=== PATIENT | female | born 1960 | race African-American/Black ===

== ENCOUNTER 2021-01-08 18:37 | Inpatient (IN) | payer MEDICAID, SELFPAY ==
--- NOTE | ~2021-01-08 | CT_ITS ---
EXAM: NONCONTRAST CT OF THE CHEST; NONCONTRAST CT OF THE ABDOMEN AND PELVIS INDICATION: Abdominal pain, pneumonia versus cancer COMPARISON: Chest x-ray 01/08/2021 TECHNIQUE: No IV contrast was utilized. Multidetector helical imaging was performed through the chest, abdomen, and pelvis. Coronal and sagittal reformatted images were created at the technologist workstation. DOSE LOWERING TECHNIQUES: This CT examination was performed using dose optimization techniques as appropriate, variously including the following: - Automated exposure control - Adjustment of mA and/or kV according to patient size (this includes techniques or standardized protocols for targeted exams were dose is matched to indication/reason for exam; i.e. extremities or head) - Use of iterative reconstruction technique DLP: 381 mGy-cm FINDINGS: Chest: Semisolid material is present in the left lower lobe bronchus. Patchy areas of mild groundglass opacity are noted with upper lobe predominance. Mild emphysema is noted. There is a nodular focus measuring 5 mm in the right upper lobe anteriorly as seen on image 231/524. No pneumothorax or pleural effusion. The visualized thyroid gland is unremarkable. Small hiatal hernia is suspected. No lymphadenopathy is seen though assessment is limited without intravenous contrast. Cardiac size is within normal limits; no pericardial effusion. Coronary artery calcifications are present. No axillary lymphadenopathy is present. Abdomen/Pelvis: Limited evaluation without intravenous contrast. The liver is homogeneous in attenuation without intrahepatic biliary ductal dilatation. The gallbladder is grossly unremarkable. The unenhanced spleen adrenal appears unremarkable. There is extensive calcification throughout the pancreas. Questionable low-density left adrenal nodule with a density of an adenoma, versus small amount of free fluid. Excreted contrast noted in the bilateral pelvicalyceal systems of the kidneys. No hydronephrosis. Small right upper pole renal cyst is suspected. The urinary bladder is distended with excreted contrast material. The uterus and adnexa are grossly unremarkable. Small amount of pelvic free fluid suspected. Limited evaluation of the bowel due to lack of intravenous contrast and luminal collapse. The possibility of some segments of colonic wall thickening cannot be excluded in this setting. No evidence of bowel obstruction. Thin high density structure in the right lower quadrant is suggestive of the appendix. Scattered atherosclerotic calcifications are present. Significantly limited assessment for lymphadenopathy without intravenous contrast per No acute osseous findings. CT/CT abdomen pelvis wo con IMPRESSION: 1. Patchy areas of mild pulmonary groundglass opacity with upper lobe predominance, suggesting a mild infectious/inflammatory etiology. 2. Semisolid material in the left lower lobe bronchus, which could be secondary to aspiration. 3. Limited evaluation for masses or adenopathy in the abdomen/pelvis in the absence of contrast. Assessment of the colon is also limited due to luminal collapse, and segments of mild colonic wall thickening/colitis are difficult to entirely exclude. 4. Extensive calcifications throughout the pancreas consistent with chronic pancreatitis. 5. Small amount of intra-abdominal free fluid. 6. Right upper lobe 5 mm lung nodule is nonspecific and may be inflammatory. According to the UPDATED 2017 Fleischner Society recommendations, the advised follow-up imaging for solid nodules < 6 mm is: LOW RISK PATIENT: No routine follow-up. HIGH RISK PATIENT: Optional CT at 12 months.
--- NOTE | ~2021-01-08 | XR_ITS ---
EXAMINATION: PORTABLE CHEST 1 VIEW CLINICAL INFORMATION: lethargy . COMPARISON: No recent pertinent prior studies are available for comparison. TECHNIQUE: Portable frontal view of the chest was obtained. Patient is rotated slightly to the right. FINDINGS: The lungs are well expanded. No focal infiltrate, effusion, edema, or pneumothorax. Cardiac and mediastinal silhouettes are within normal limits for technique. No acute bony abnormality seen. XR/XR chest 1V IMPRESSION: No evidence of acute disease.
--- NOTE | ~2021-01-08 | CT_ITS ---
EXAMINATION: CT ANGIOGRAM HEAD CT ANGIOGRAM NECK CLINICAL INFORMATION: Potential infarct. Lethargy. COMPARISON: CT head from 01/08/2021. TECHNIQUE: Initial noncontrast flat finisher imaging of the head and neck was performed. Comparison is made with noncontrast head CT from earlier today. Test bolus sequences followed by intravenous administration 70 mL of Omnipaque 350. Helical imaging was performed in the axial plane from the aortic arch to the skull vertex. Delayed postcontrast imaging of the head was also performed. The data was processed at the cytometry technologist's workstation for generation of MIP sequences. Angled MIPs and volume rendered reformatted images were also generated at an offline 3D workstation. Stenoses are assessed in accordance with NASCET criteria unless otherwise indicated. This CT examination was performed using dose optimization techniques as appropriate, variously including the following: *Automated exposure control. *Adjustment of mA and/or kV according to patient size (this includes techniques or standardized protocols for targeted exams where dose is matched to indication/reason for exam; i.e. extremities or head). *Use of iterative reconstruction technique. DLP: 1412 mGy-cm FINDINGS: CT Head: There is no evidence of acute intracranial hemorrhage or edematous territorial infarction. A few foci of hypoattenuation in the periventricular and deep white matter are consistent with mild microangiopathy. Cavazos-white matter differentiation is preserved. The ventricles are normal in size and configuration. No evidence for obstructive hydrocephalus. No abnormal mass effect or midline shift. No extra-axial fluid collections. No pathologic intra-axial enhancement or regional oligemia. No acute soft tissue or osseous abnormalities. Moderate degenerative arthropathy of the temporomandibular joints. Mild mucosal thickening of the paranasal sinuses. The mastoid air cells and middle ear cavities are clear. Multifocal odontogenic enamel erosions and periapical lucencies. Right-sided lens extraction. CT Neck: There is wasting of the majority of the adipose tissue throughout the neck. No demonstrated focal lesion or collection within the soft tissues of the neck. The thyroid gland and remaining cervical soft tissues are within normal limits. No significant abnormalities of the cervical spine. CT Upper Chest: The esophagus is moderately distended and fluid-filled. Mild to moderate underlying centrilobular and paraseptal emphysema. Multifocal subcentimeter part solid and part groundglass nodules within the right upper lobe. Neck CTA: Aortic Arch: Normal contour and caliber. Classic 3 vessel branching pattern of the aortic arch. Great Vessel Origins: No significant stenosis of the branch origins. Right Common Carotid Artery: No focal stenosis or occlusion. Cervical Right Internal Carotid Artery: Mild calcific atherosclerotic disease of the carotid bulb and proximal internal carotid artery without flow-limiting stenosis. Left Common Carotid Artery: No focal stenosis or occlusion. Cervical Left Internal Carotid Artery: Mild calcific atherosclerotic disease of the carotid bulb and proximal internal carotid artery without flow-limiting stenosis. Cervical Right Vertebral Artery: The right-sided vertebral artery is threadlike from its origin. The V3 segment is near nonopacified. Cervical Left Vertebral Artery: Dominant. No focal stenosis or occlusion. Brain CTA: Intracranial Internal Carotid Arteries: Calcific atherosclerotic disease of the intracranial internal carotid arteries without occlusion or flow-limiting stenosis. No focal stenosis or occlusion. Right Anterior Cerebral Artery: The A1 segment is mildly diminutive. Normal opacification of the distal FAITH segments. Left Anterior Cerebral Artery: Normal A1 segment. Normal opacification of the distal FAITH segments. Anterior Communicating Artery: Normal. Right Middle Cerebral Artery: Normal M1 segment of the MCA without focal stenosis or occlusion. Normal arborization of the distal segments. Left Middle Cerebral Artery: Normal M1 segment of the MCA without focal stenosis or occlusion. Normal arborization of the distal segments. Right Vertebral Artery: The V4 segment is diminutive and potentially focally occluded within its mid section. There is opacification of a threadlike continuation of the V4 segment of the basilar artery. The posterior inferior cerebellar artery is not well opacified; however, there is no CT evidence of acute occlusion. Left Vertebral Artery: Normal V4 segment. Normal opacification of the proximal segments of the posterior inferior cerebellar artery. Basilar Artery: The basilar artery is mildly diminutive throughout its course without focal stenosis or occlusion. Normal appearance of the proximal superior cerebellar arteries. Right Posterior Cerebral Artery: The P1 segment is diminutive. origin of the POULTRY SERVICE TECHNICIAN with robust opacification of the posterior communicating artery. Normal opacification of the distal POULTRY SERVICE TECHNICIAN segments. Left Posterior Cerebral Artery: The P1 segment is diminutive. origin of the POULTRY SERVICE TECHNICIAN with robust opacification of the posterior communicating artery. Normal opacification of the distal POULTRY SERVICE TECHNICIAN segments. Normal opacification of the superior sagittal, straight, transverse, and sigmoid sinuses. CT/CT angio head neck stroke IMPRESSION: 1. No evidence of acute intracranial hemorrhage or edematous territorial infarction. No abnormal intracranial enhancement. 2. CTA of the head and neck without evidence of acute proximal occlusion or flow-limiting stenosis. 3. The right vertebral artery appears chronically diminutive with threadlike opacification. Dominant left-sided vertebral artery. The basilar artery is mildly diminutive with bilateral origins of the posterior cerebral arteries. 4. The esophagus is dilated and fluid-filled suggestive of distal obstruction (not included within the [id number] of this exam). If not previously workup, further evaluation of cause is recommended. 5. Underlying emphysema. Multifocal part solid and part groundglass nodules in the right upper lobe suggestive of an infectious/inflammatory process. This critical result was discussed with NAVIN Peck at 21:38 on 01/08/2021 and it was ascertained that the content and urgency of the report was understood at the time of direct communication.
--- NOTE | ~2021-01-08 | CT_ITS ---
CT head/brain wo con CLINICAL INFORMATION: Reason for Exam lethargy COMPARISON: No prior CT scan available for comparison. TECHNIQUE: Department standard protocol. This CT examination was performed using dose optimization techniques as appropriate, variously including the following: *Automated exposure control *Adjustment of mA and/or kV according to patient size (this includes techniques or standardized protocols for targeted exams where dose is matched to indication/reason for exam; i.e. extremities or head) *Use of iterative reconstruction technique DLP: 611 mGy-cm FINDINGS: CEREBRAL HEMISPHERES: There is subtle loss of normal overton-white matter differentiation in the left frontoparietal region raising concern for possible infarct. SUBDURAL SPACE: No bleed. BASAL GANGLIA AND PINEAL GLAND: Unremarkable VENTRICLES: Symmetric and normal in size. CEREBELLUM AND BRAINSTEM: No space-occupying mass, hemorrhage or acute infarct. CEREBELLOPONTINE ANGLES: No lesion found. ORBITS: No intraorbital mass. VESSELS: Unremarkable SKULL BASE: Unremarkable INCLUDED SINUSES AT SKULL BASE: Clear SKULL AND SKIN: No fracture or bone lesion found. CT/CT head/brain wo con IMPRESSION: Subtle hypodensity and loss of normal white matter differentiation left frontoparietal lobe raising concern for possible underlying developing infarct. Correlate with patient's symptoms, may consider correlation with MRI. No intracranial bleed. (Referring physician staff is being called, to be alerted of the above findings and recommendations.) EM
[2021-01-08 18:49] VITALS: BMI 12.1
[2021-01-08 18:57] VITALS: BP 159/104; PULSE 98; RESP 16; TEMP 36.9; O2SAT 98
--- NOTE | 2021-01-08 18:58 | ED.WEAKNESS ---
HPI - Weakness General Chief complaint: Weakness Stated complaint: lethargy Time Seen by Provider: 01/08/21 18:54 Source: patient Mode of arrival: ambulatory Limitations: no limitations History of Present Illness HPI Narrative: Patient presents to the ED for lethargic as per daughter. Daughter states patient woke up lethargic this morning. States she woke up with patient in the bed and patient did not want to eat. Order states she went out and came back and patient still was in the same position. But does admit the house was very hot. Daughter states yesterday patient was walking around the parking eating fine. States patient does not want to eat today. EMS states daughter informed him patient woke up lethargic Related Data Allergies Allergy/AdvReac Type Severity Reaction Status Date / Time No Known Allergies Allergy Verified 01/08/21 18:54 Review of Systems Review of Systems: Yes all other systems are reviewed and are negative Constitutional: Constitutional: Reports as per HPI and Reports no additional constitutional complaints Comments: Lethargic Eyes: Eyes: Reports as per HPI and Reports no additional eye complaints ENT: Reports system reviewed and no additional complaints, except as documented and Reports as per HPI Cardiovascular: Cardiovascular: Reports as per HPI and Reports no additional cardiovascular complaints Respiratory: Respiratory: Reports as per HPI and Reports no additional respiratory complaints Gastrointestinal: Gastrointestinal: Reports as per HPI and Reports no additional gastrointestinal complaints Genitourinary: Genitourinary: Reports no additional female genitourinary complaints and Reports as per HPI Musculoskeletal: Musculoskeletal: Reports no additional musculoskeletal complaints and Reports as per HPI Neurologic: Reports system reviewed and no additional complaints, except as documented and Reports as per HPI Psychiatric: Psychiatric: Reports no additional psychiatric complaints and Reports as per HPI [facility] Social History Social History Alcohol intake: never Patient Tobacco Use Status: Current everyday Tobacco user Use of substances other than those prescribed or required for medical reasons: No Advance Directives: No Advance Directives Information Provided: Yes Physical Exam Vital Signs: Vital Signs: Last Vital Signs Temp 98.4 F 01/08/21 22:00 Pulse 97 01/08/21 22:00 Resp 16 01/08/21 22:00 BP 156/105 H 01/08/21 22:00 Pulse Ox 98 01/08/21 22:00 Body Mass Index 12.1 Const: General: cooperative, healthy appearing, comfortable, no acute distress, well developed, alert, awake and Physically active; No lethargic Orientation/consciousness: patient oriented x3 and No lethargic HENMT: Head: Yes normal to inspection, Yes No palpable skull fracture present, Yes normocephalic, Yes atraumatic and No abrasion Eyes: Other: General: appearance normal, both eyes and all related structures Neck: Neck: Yes normal visual inspection, Yes full ROM, Yes no lymphadenopathy, Yes no meningeal signs, Yes trachea midline, Yes supple and No tender Chest: Chest palpation & inspection: normal inspection of the chest and normal palpation of entire chest wall Resp: Effort & Inspection: normal respiratory effort and able to speak in complete sentences Auscultation: clear to auscultation bilaterally Cardio: Jugular venous distension: no JVD Heart sounds: S1 normal heart sound present and S2 normal heart sound present GI: Inspection: Yes normal to inspection and No abdominal wall ecchymosis Palpation (GI): Soft to palpation, not firm, nontender, no guarding and not rigid : General: No CVA tenderness and Yes no CVA tenderness Back/Spine/Pelvis: Back: no CVA tenderness, No CVA tenderness and No back tenderness Skin: General skin exam: no rashes or lesions noted and elasticity normal Neuro: Other: Negative pronator drift. Negative slurred speech. Negative facial droop. All extremities equal strength and 5+. Negative neuro deficit General: patient oriented x3, no meningeal signs and CN's II-XI intact bilaterally Cranial nerves: Yes CN's II-XII intact bilaterally NIH Stroke Scale Internal: Other (Unknown last well) Level of Consciousness: Alert Level of Consciousness Questions: Answers both questions correctly Level of Consciousness Commands: Performs both tasks correctly Best Gaze: Normal Visual: No visual loss Facial Palsy: Normal Motor Arm (Right): No drift Motor Arm (Left): No drift Motor Leg (Right): No drift Motor Leg (Left): No drift Limb Ataxia: Absent Sensory: Normal Best Language: No aphasia Dysarthia: Normal Extinction and Inattention: No abnormality Score: 0 Course Course Course Narrative: Patient's symptoms may be due to heat exhaustion but will do a medical evaluation. With the patient have labs, head CT, EKG, troponin, and UA sent. Negative neuro deficit Reevaluation(s) Reevaluation #1: EKG negative STEMI. Troponin negative. UA normal. Electrolytes normal. Patient has slight white count elevation. Head CT shows questionable possible infarct. Will send patient for head CTA. Patient does not have any neuro deficits. Patient denied score of 0. I went to speak to the daughter she changed the story. Now states patient was normal in the morning talking and eating and then she states she left the patient at the house at 1 p.m. with her daughter. She left patient watching television. Came back at 16:00 some other in the same position and asked patient how come she did not eats and patient informed because she was lethargic. I saw patient at the ED at 19:00. Last known normal was 13:00. Mother told daughter she was weak at 16:00. Daughter states her own daughter states patient was in the same position since 13:00 and she thought patient was sleeping. Patient is outside the window. Patient is not a tPA candidate. Dr. Gaston evaluated patient and agree NIH Score is zero and got story from Daughter also. Time: 20:18 Reevaluation #2: Head CT does not show any neck or occlusion. Radiologist does not see stroke and head CT of neck and states initial read of possible stroke was not real. Presently no indication to call Neurology Dr. Gaston agreeable with plan. Will admit patient for CT a reading of possible esophagus obstruction. History physical exam does not indicate stroke. Time: 21:52 Reevaluation #3: I reviewed patient's chest CT and shows right upper lobe pneumonia. Will order lactic and start antibiotics. Accepted by Dr. Lynn hospitalist for admission. She evaluated patient and patient had some abdominal pain at that time so she recommend abdominal CT scan and chest CT to confirm pneumonia and possibility of malignancy in the lungs. Patient is not drooling and not in respiratory distress. Patient speaking in clear sentences and not having any nausea or vomiting. No indication for emergent gastroenterology evaluation. Hospitalists will contact Gastroenterology. Time: 23:55 MDM - Weakness MDM Narrative Medical decision making narrative: Lethargic. Pneumonia. Esophagus obstruction possible malignancy Lab Data Result diagrams: 01/08/21 19:35 01/08/21 19:35 Labs: Lab Results 01/08/21 01/08/21 01/08/21 Range/Units 19:35 19:35 19:35 WBC 13.4 H (4.8-10.8) X10*3/uL RBC 3.19 L (4.20-5.50) X10*6/uL Hgb 10.0 L (12.0-16.0) g/dl Hct 30.7 L (37-47) % MCV 96.2 (80-98) fL MCH 31.3 (27.0-33.0) pg MCHC 32.6 (31.0-35.0) g/dl RDW 13.2 (11.0-16.0) % Plt Count 385 (160-400) X10*3/uL MPV 9.2 L (9.4-12.3) fL Immature Gran % (Auto) 0.4 (0.0-0.4) % Neut % (Auto) 80.7 H (45-73) % Lymph % (Auto) 13.2 L (20-40) % Carter % (Auto) 4.3 (2-11) % Eos % (Auto) 1.0 (0-4) % Baso % (Auto) 0.4 (0-2) % Lymph # (Auto) 1.8 (1.2-4.9) X10*3/uL Carter # (Auto) 0.6 (0.1-1.2) X10*3/uL Eos # (Auto) 0.1 (0.0-0.4) X10*3/uL Baso # (Auto) 0.1 (0.0-0.2) X10*3/uL Abs Immat Gran (auto) 0.06 H (0.00-0.03) X10*3/uL Absolute Neuts (auto) 10.8 H (2.0-8.3) X10*3/uL Absolute Nucleated RBC 0.000 (0.0-0.012) X10*3/uL Nucleated RBC % (auto) 0.0 (0.0-0.2) /100WBC PT 13.2 H (10.8-13.0) SEC INR 1.1 (0.9-1.1) APTT 31.3 (24.1-38.0) SEC Sodium 138 (135-145) mmol/L Potassium 4.3 (3.3-5.1) mmol/L Chloride 102 (96-108) mmol/L Carbon Dioxide 28 (22-29) mmol/L Anion Gap 12 (12-20) BUN 26 H (9-16) mg/dL Creatinine 0.65 (0.5-1.4) mg/dL Estim Creat Clear Calc 47.6 Estimated GFR > 60 Random Glucose 179 H (60-115) mg/dL Lactic Acid (0.5-2.0) mmol/L Calcium 8.3 L (8.4-10.2) mg/dL Total Bilirubin 0.4 (0.0-1.0) mg/dL Direct Bilirubin (0.0-0.5) mg/dL AST 28 (5-31) U/L ALT 24 (0-31) U/L Alkaline Phosphatase 314 H (39-117) U/L Total Creatine Kinase (26-140) U/L Troponin I High Sens (<3.5-17.0) ng/L Total Protein 6.3 L (6.5-8.0) g/dL Albumin 2.8 L (3.5-5.0) g/dL Urine Color Urine Appearance Urine pH (5.0-8.0) Ur Specific [place] (1.005-1.025) Urine Protein (NEG-TRACE) MG/DL Urine Glucose (UA) (NEG) MG/DL Urine Ketones (NEG) MG/DL Urine Blood (NEG) Urine Nitrite (NEG) Ur Leukocyte Esterase (NEG) Urine RBC (0) /HPF Urine WBC (0-4) /HPF Ur Squamous Epith Cells /LPF Urine Bacteria /LPF COVID-19 (STEPHANI) (Negative) COVID-19 Clin Com 01/08/21 01/08/21 01/08/21 Range/Units 19:35 19:35 19:35 WBC (4.8-10.8) X10*3/uL RBC (4.20-5.50) X10*6/uL Hgb (12.0-16.0) g/dl Hct (37-47) % MCV (80-98) fL MCH (27.0-33.0) pg MCHC (31.0-35.0) g/dl RDW (11.0-16.0) % Plt Count (160-400) X10*3/uL MPV (9.4-12.3) fL Immature Gran % (Auto) (0.0-0.4) % Neut % (Auto) (45-73) % Lymph % (Auto) (20-40) % Carter % (Auto) (2-11) % Eos % (Auto) (0-4) % Baso % (Auto) (0-2) % Lymph # (Auto) (1.2-4.9) X10*3/uL Carter # (Auto) (0.1-1.2) X10*3/uL Eos # (Auto) (0.0-0.4) X10*3/uL Baso # (Auto) (0.0-0.2) X10*3/uL Abs Immat Gran (auto) (0.00-0.03) X10*3/uL Absolute Neuts (auto) (2.0-8.3) X10*3/uL Absolute Nucleated RBC (0.0-0.012) X10*3/uL Nucleated RBC % (auto) (0.0-0.2) /100WBC PT (10.8-13.0) SEC INR (0.9-1.1) APTT (24.1-38.0) SEC Sodium (135-145) mmol/L Potassium (3.3-5.1) mmol/L Chloride (96-108) mmol/L Carbon Dioxide (22-29) mmol/L Anion Gap (12-20) BUN (9-16) mg/dL Creatinine (0.5-1.4) mg/dL Estim Creat Clear Calc Estimated GFR Random Glucose (60-115) mg/dL Lactic Acid (0.5-2.0) mmol/L Calcium (8.4-10.2) mg/dL Total Bilirubin 0.5 (0.0-1.0) mg/dL Direct Bilirubin < 0.2 (0.0-0.5) mg/dL AST 29 (5-31) U/L ALT 25 (0-31) U/L Alkaline Phosphatase 323 H (39-117) U/L Total Creatine Kinase 78 (26-140) U/L Troponin I High Sens < 3.5 (<3.5-17.0) ng/L Total Protein 6.3 L (6.5-8.0) g/dL Albumin 2.9 L (3.5-5.0) g/dL Urine Color Urine Appearance Urine pH (5.0-8.0) Ur Specific [place] (1.005-1.025) Urine Protein (NEG-TRACE) MG/DL Urine Glucose (UA) (NEG) MG/DL Urine Ketones (NEG) MG/DL Urine Blood (NEG) Urine Nitrite (NEG) Ur Leukocyte Esterase (NEG) Urine RBC (0) /HPF Urine WBC (0-4) /HPF Ur Squamous Epith Cells /LPF Urine Bacteria /LPF COVID-19 (STEPHANI) Negative (Negative) COVID-19 Clin Com See Note 01/08/21 01/08/21 Range/Units 20:25 23:45 WBC (4.8-10.8) X10*3/uL RBC (4.20-5.50) X10*6/uL Hgb (12.0-16.0) g/dl Hct (37-47) % MCV (80-98) fL MCH (27.0-33.0) pg MCHC (31.0-35.0) g/dl RDW (11.0-16.0) % Plt Count (160-400) X10*3/uL MPV (9.4-12.3) fL Immature Gran % (Auto) (0.0-0.4) % Neut % (Auto) (45-73) % Lymph % (Auto) (20-40) % Carter % (Auto) (2-11) % Eos % (Auto) (0-4) % Baso % (Auto) (0-2) % Lymph # (Auto) (1.2-4.9) X10*3/uL Carter # (Auto) (0.1-1.2) X10*3/uL Eos # (Auto) (0.0-0.4) X10*3/uL Baso # (Auto) (0.0-0.2) X10*3/uL Abs Immat Gran (auto) (0.00-0.03) X10*3/uL Absolute Neuts (auto) (2.0-8.3) X10*3/uL Absolute Nucleated RBC (0.0-0.012) X10*3/uL Nucleated RBC % (auto) (0.0-0.2) /100WBC PT (10.8-13.0) SEC INR (0.9-1.1) APTT (24.1-38.0) SEC Sodium (135-145) mmol/L Potassium (3.3-5.1) mmol/L Chloride (96-108) mmol/L Carbon Dioxide (22-29) mmol/L Anion Gap (12-20) BUN (9-16) mg/dL Creatinine (0.5-1.4) mg/dL Estim Creat Clear Calc Estimated GFR Random Glucose (60-115) mg/dL Lactic Acid 0.5 (0.5-2.0) mmol/L Calcium (8.4-10.2) mg/dL Total Bilirubin (0.0-1.0) mg/dL Direct Bilirubin (0.0-0.5) mg/dL AST (5-31) U/L ALT (0-31) U/L Alkaline Phosphatase (39-117) U/L Total Creatine Kinase (26-140) U/L Troponin I High Sens (<3.5-17.0) ng/L Total Protein (6.5-8.0) g/dL Albumin (3.5-5.0) g/dL Urine Color YELLOW Urine Appearance CLEAR Urine pH 5.5 (5.0-8.0) Ur Specific [place] 1.015 (1.005-1.025) Urine Protein NEG (NEG-TRACE) MG/DL Urine Glucose (UA) >=1000 H (NEG) MG/DL Urine Ketones NEG (NEG) MG/DL Urine Blood NEG (NEG) Urine Nitrite NEG (NEG) Ur Leukocyte Esterase NEG (NEG) Urine RBC 0 (0) /HPF Urine WBC 0-2 (0-4) /HPF Ur Squamous Epith Cells 1+ /LPF Urine Bacteria NONE /LPF COVID-19 (STEPHANI) (Negative) COVID-19 Clin Com ECG Data Interpretation: Normal sinus rhythm. Ventricular rate 92. VA interval 136. QRS 70. QTC 452. Negative STEMI Discharge Plan Discharge Clinical Impression: Lethargic, Pneumonia, Esophageal obstruction Patient Disposition: Admitted As Inpatient
[2021-01-08] MEDS: 0.9 % Sodium Chloride 1,000 ML 999 ML IV (19:09)
--- NOTE | 2021-01-08 19:36 | ECG_ITS ---
Test Reason : WEAKNESS Blood Pressure : / mmHG Vent. Rate : 092 BPM Atrial Rate : 092 BPM P-R Int : 136 ms QRS Dur : 070 ms QT Int : 366 ms P-R-T Axes : 087 080 088 degrees QTc Int : 452 ms Normal sinus rhythm Septal infarct , age undetermined Abnormal ECG No previous ECGs available Referred By: Braydon Arenas Electronically Signed By:Andrews Ace
[2021-01-08 19:40] LABS: MANUAL DIFF FLAG NO
[2021-01-08 19:42] LABS: Basophils Absolute Auto 0.1 X10*3/uL (0.0-0.2); Basophils Percent Auto 0.4 % (0-2); Eosinophils Absolute Auto 0.1 X10*3/uL (0.0-0.4); Hematocrit 30.7 % (37-47); Imm Gran Abs Auto 0.06 X10*3/uL (0.00-0.03); Imm Gran Pct Auto 0.4 % (0.0-0.4); Lymphocytes Absolute Auto 1.8 X10*3/uL (1.2-4.9); Lymphocytes Percent Auto 13.2 % (20-40); Mean Corpuscular HGB Conc 32.6 g/dl (31.0-35.0); Mean Corpuscular Hemoglobin 31.3 pg (27.0-33.0); Mean Corpuscular Volume 96.2 fL (80-98); Mean Platelet Volume 9.2 fL (9.4-12.3); Monocytes Absolute Auto 0.6 X10*3/uL (0.1-1.2); Monocytes Percent Auto 4.3 % (2-11); Neutrophils Absolute Auto 10.8 X10*3/uL (2.0-8.3); Neutrophils Percent Auto 80.7 % (45-73); Platelet Count 385 X10*3/uL (160-400); Red Blood Count 3.19 X10*6/uL (4.20-5.50); Red Cell Distribution Width 13.2 % (11.0-16.0); White Blood Count 13.4 X10*3/uL (4.8-10.8)
[2021-01-08 19:48] LABS: INTERNATIONAL NORM RATIO 1.1 (0.9-1.1); Prothrombin Time 13.2 SEC (10.8-13.0)
[2021-01-08 19:51] LABS: Partial Thromboplastin Time 31.3 SEC (24.1-38.0)
[2021-01-08 20:00] LABS: COVID-19 Test Negative (Negative); IDNOW Serial# 9DD0AD1C
[2021-01-08 20:16] LABS: Alanine Aminotransferase 24 U/L (0-31); Albumin Level 2.8 g/dL (3.5-5.0); Alkaline Phosphatase 314 U/L (39-117); Anion Gap 12 (12-20); Aspartate Amino Transferase 28 U/L (5-31); Bilirubin Total 0.4 mg/dL (0.0-1.0); Blood Urea Nitrogen 26 mg/dL (9-16); Calcium 8.3 mg/dL (8.4-10.2); Carbon Dioxide 28 mmol/L (22-29); Chloride 102 mmol/L (96-108); Creatinine Clr Calc Pharmacy 47.6; Estimated Glomerular Filt Rate > 60; Glucose Random 179 mg/dL (60-115); Potassium 4.3 mmol/L (3.3-5.1); Sodium 138 mmol/L (135-145); Total Protein 6.3 g/dL (6.5-8.0)
[2021-01-08 20:17] LABS: Alanine Aminotransferase 25 U/L (0-31); Albumin Level 2.9 g/dL (3.5-5.0); Alkaline Phosphatase 323 U/L (39-117); Aspartate Amino Transferase 29 U/L (5-31); Bilirubin Direct < 0.2 mg/dL (0.0-0.5); Bilirubin Total 0.5 mg/dL (0.0-1.0); Total Protein 6.3 g/dL (6.5-8.0)
[2021-01-08 20:23] LABS: Troponin-I High Sensitivity < 3.5 ng/L (<3.5-17.0)
[2021-01-08 20:37] VITALS: BP 149/102; PULSE 92; RESP 16; TEMP 36.9; O2SAT 95
[2021-01-08 20:40] LABS: Glucose Urine UA >=1000 MG/DL (NEG); Leukocyte Esterase Urine NEG (NEG); Nitrite Urine NEG (NEG); PH 5.5 (5.0-8.0); Specific Gravity - Urine 1.015 (1.005-1.025); Urine Blood NEG (NEG); Urine Ketones NEG (NEG); Urine Protein NEG (NEG-TRACE)
--- NOTE | 2021-01-08 20:40 | PC.NURSE ---
PATIENT WAS STRAIGHT CATH BY THIS PCT ,UPON CHANGING PATIENT NOTICE A DRESSING ON PATIENT COCCYX AND THEN ANOTHER LARGE OPEN AREA ON LEFT BUTTOCK ,RN EMILIANA WAS CALLED TO CHECK WOUNDS ,PATIENT HAD LARGE AMOUNT OF DRY STOOL UNDER DRESSING .
[2021-01-08 20:41] LABS: Appearance Urine CLEAR; Color Urine YELLOW
[2021-01-08 20:54] LABS: WBC Urine 0-2 /HPF (0-4)
[2021-01-08 20:55] LABS: RBC Urine 0 /HPF (0); Squamous Epithelial Cell Urine 1+ /LPF
[2021-01-08] MEDS: iohexoL 350 MG/ML 100 ML INFUS..BTL IV (21:32)
[2021-01-08 22:00] VITALS: BP 156/105; PULSE 97; RESP 16; TEMP 36.9; O2SAT 98
[2021-01-08] MEDS: cefTRIAXone sodium 1 GM in 0.9 % Sodium Chloride 50 ML IV (23:54)
[2021-01-08] MEDS: Azithromycin 500 MG in 0.9 % Sodium Chloride 250 ML 125 MG IV (23:55)
[2021-01-09] VITALS (7 sets, daily range): BP systolic 137–177; BP diastolic 82–105; PULSE 91–103; RESP 11–16; TEMP 36.3–36.9; O2SAT 97–100
[2021-01-09 00:12] LABS: Lactic Acid 0.5 mmol/L (0.5-2.0)
[2021-01-09] MEDS: ondansetron HCL 4 MG/2 ML VIAL IVPUSH (03:50)
--- NOTE | 2021-01-09 03:59 | PC.NURSE ---
This RN assumed care of pt at ~0300, entered room and was assessing pt. Pt's daughter at bedside states pt c/o back and abd pain. This RN discussing home medications with pt and family, neither able to provide information regarding daily meds. This RN with plan to further investigate home med regimen. Pt begins vomiting dark red coffee ground emesis. Pt placed on investment broker, in NSS, VSS. This RN TT Dr Vance to inform her; Dr Spangler made aware and comes to bedside. Dr Spangler verbal orders guaiac, this RN obtains sample and will send to lab for processing. Dr Spangler with initial plan to insert NG tube; this RN informs Dr Vance. Dr Spangler decides against NG tube placement after reviewing the CT scan. Dr Vance updated, agreeable. Pt medicated with antiemetics, type and screen obtained by phlebotomy. This RN to hold SQ heparin d/t likely vomiting blood. Dr Vance made aware.
[2021-01-09 04:42] LABS: Glucose, Whole Blood 221 mg/dL (60-115)
--- NOTE | 2021-01-09 05:27 | PC.NURSE ---
This RN sent gastric occult blood sample on occult stool card in error; lab unable to determine if gastric contents are heme positive off of sample. This RN notifited Dr Vance. Plan for RN to obtain gastric content sample if pt vomits again to send for processing. Additionally, pt was c/o abd pain, this RN requested pain control from Dr Vance and PRN morphine ordered. Pt no longer reporting pain at this time. Dr Vance made aware that med rec has been completed by this RN.
--- NOTE | 2021-01-09 05:56 | PM.IMHP ---
History of Present Illness Date of Service: 01/09/21 Chief Complaint: lethargy With history of diabetes, as well as hypertension who is a Frisian-speaking brought into the hospital complaining of lethargy. History is mostly obtained from daughter at her bedside. Patient's daughter reports that she recently brought her from [place] after she was concerned about her health, losing weight, and not doing 12. Patient's daughter reports that she was recently hospitalized in [place] for a whole week but she is not sure why. He daughter reports that she woke up this morning with her mom being at her baseline, she left around noon, when she came back in the afternoon found her to be more tired, weak, and lethargic, checked her sugar which was high called EMS and asked him to bring her to the hospital. When I ask the patient about any symptoms she reports abdominal pain all over that started 2 days ago, she denies any diarrhea or constipation, denies any nausea or vomiting, no chest pain no shortness of breath, no urinary symptoms. On arrival to the ED patient's vitals are significant for temperature of 98.5?, heart rate of 98, respiratory rate of 16, blood pressure of 159/104, satting 98% on room air Labs are significant for WBC count of 13.4, hemoglobin of 10, BUN of 26, creatinine 0.65, alk-phos of 323, albumin of 2.9, UA negative except for glucose, COVID-19 negative. Initial head and neck CT angiogram showed no evidence of acute intracranial hemorrhage or edematous territory infarction. No abnormal intracranial enhancement. CTA of the head and neck without evidence of acute proximal occlusion or flow-limiting stenosis. The right vertebral artery appears chronically diminutive with thread-like opacification, the esophagus is dilated and fluid-filled suggestive of distal obstruction, underlying emphysema, multifocal part salt and part ground-glass nodules in the right upper lobe suggestive of infectious inflammatory process While in the ED patient had hematemesis of coffee-ground emesis. Review of Systems Review of Systems: Yes all other systems are reviewed and are negative [facility] Medical History Diabetes Hypertension Social History Alcohol intake: never Patient Tobacco Use Status: Current everyday Tobacco user Use of substances other than those prescribed or required for medical reasons: No Advance Directives: No Advance Directives Information Provided: Yes Meds Allergies Allergy/AdvReac Type Severity Reaction Status Date / Time No Known Allergies Allergy Verified 01/08/21 18:54 Active Medications: Current Medications Generic Name Dose Route Start Last Admin Trade Name Freq PRN Reason Stop Dose Admin Acetaminophen 650 mg 01/09/21 03:49 Acetaminophen 325 Mg Tablet PO Q6H PRN Pain, Mild (Pain Scale 1-3) Docusate Sodium 100 mg 01/09/21 03:49 Docusate Sodium 100 Mg Capsule PO DAILY PRN Constipation Ceftriaxone Sodium 1 gm/ 50 mls @ 100 mls/hr 01/09/21 22:00 Sodium Chloride IV Q24H PARTH Azithromycin 500 mg/ Sodium 250 mls @ 125 mls/hr 01/09/21 22:00 Chloride IV Q24H PARTH Morphine Sulfate 4 mg 01/09/21 05:00 Morphine Sulfate 4 Mg/Ml Cartridge IVPUSH Q4H PRN Pain, Severe (Pain Scale 7-10) Ondansetron HCl 4 mg 01/09/21 03:49 Ondansetron Hcl 4 Mg/2 Ml Vial IVPUSH Q8H PRN Nausea and Vomiting Sodium Chloride 3 ml 01/09/21 08:00 0.9 % Sodium Chloride Flush 3 Ml Syringe IVFLUSH [facility] Home Medications Medication Instructions Recorded Confirmed Last Taken Type alendronate 70 mg PO QWEEK 01/09/21 01/09/21 Unknown History ascorbic acid (vitamin C) 500 mg PO DAILY 01/09/21 01/09/21 Unknown History cholecalciferol (vitamin D3) 25 mcg PO DAILY 01/09/21 01/09/21 Unknown History diclofenac sodium [Voltaren 2 g TOPICAL TID PRN 01/09/21 01/09/21 Unknown History Arthritis Pain] ferrous sulfate 325 mg PO Q OTHER DAY 01/09/21 01/09/21 Unknown History gabapentin 600 mg PO TID 01/09/21 01/09/21 Unknown History insulin degludec 5 unit SUBCUT BEDTIME 01/09/21 01/09/21 Unknown History insulin lispro [Humalog KwikPen 2 unit SUBCUT TID 01/09/21 01/09/21 Unknown History Insulin] utdfpc-wwephejv-oyicanm 3 cap PO TID 01/09/21 01/09/21 Unknown History [Pancrelipase 5000] lisinopril 5 mg PO DAILY 01/09/21 01/09/21 Unknown History pyridoxine (vitamin B6) 50 mg PO DAILY 01/09/21 01/09/21 Unknown History thiamine HCl (vitamin B1) 100 mg PO DAILY 01/09/21 01/09/21 Unknown History Physical Exam Vital Signs and Narrative: Vital Signs: Last Vital Signs Temp 97.3 F 01/09/21 04:18 Pulse 91 01/09/21 04:18 Resp 11 L 01/09/21 04:18 BP 177/97 H 01/09/21 04:18 Pulse Ox 100 01/09/21 04:18 Body Mass Index 12.1 Const: General: cooperative, ill appearing, lethargic and tired appearing Orientation/consciousness: lethargic Eyes: General: appearance normal, both eyes and all related structures Resp: Effort & Inspection: normal respiratory effort and able to speak in complete sentences Cardio: Rate: regular rate Rhythm: regular rhythm GI: Other: Tender to palpation, no rebound but has guarding Palpation (GI): Soft to palpation Skin: General skin exam: no rashes or lesions noted Neuro: Cognition (Neuro): normal cognition Extrem: General: Yes normal to inspection and Yes no pedal edema Results Labs CBC and Chem 7: 01/08/21 19:35 01/08/21 19:35 Labs: Laboratory Results - last 24 hr 01/08/21 01/08/21 01/08/21 19:35 19:35 19:35 MCV 96.2 MCH 31.3 MCHC 32.6 RDW 13.2 Plt Count 385 MPV 9.2 L Immature Gran % (Auto) 0.4 Neut % (Auto) 80.7 H Lymph % (Auto) 13.2 L [place] % (Auto) 4.3 Eos % (Auto) 1.0 Baso % (Auto) 0.4 Lymph # (Auto) 1.8 [place] # (Auto) 0.6 Eos # (Auto) 0.1 Baso # (Auto) 0.1 Abs Immat Gran (auto) 0.06 H Absolute Neuts (auto) 10.8 H Absolute Nucleated RBC 0.000 Nucleated RBC % (auto) 0.0 PT 13.2 H INR 1.1 APTT 31.3 Anion Gap 12 Estim Creat Clear Calc 47.6 Estimated GFR > 60 POC Glucose Random Glucose 179 H Lactic Acid Calcium 8.3 L Total Bilirubin 0.4 Direct Bilirubin AST 28 ALT 24 Alkaline Phosphatase 314 H Total Creatine Kinase Troponin I High Sens Total Protein 6.3 L Albumin 2.8 L Urine Color Urine Appearance Urine pH Ur Specific [place] Urine Protein Urine Glucose (UA) Urine Ketones Urine Blood Urine Nitrite Ur Leukocyte Esterase Urine RBC Urine WBC Ur Squamous Epith Cells Urine Bacteria COVID-19 (STEPHANI) COVID-19 Clin Com Blood Type Antibody Screen 01/08/21 01/08/21 01/08/21 19:35 19:35 19:35 MCV MCH MCHC RDW Plt Count MPV Immature Gran % (Auto) Neut % (Auto) Lymph % (Auto) [place] % (Auto) Eos % (Auto) Baso % (Auto) Lymph # (Auto) [place] # (Auto) Eos # (Auto) Baso # (Auto) Abs Immat Gran (auto) Absolute Neuts (auto) Absolute Nucleated RBC Nucleated RBC % (auto) PT INR APTT Anion Gap Estim Creat Clear Calc Estimated GFR POC Glucose Random Glucose Lactic Acid Calcium Total Bilirubin 0.5 Direct Bilirubin < 0.2 AST 29 ALT 25 Alkaline Phosphatase 323 H Total Creatine Kinase 78 Troponin I High Sens < 3.5 Total Protein 6.3 L Albumin 2.9 L Urine Color Urine Appearance Urine pH Ur Specific [place] Urine Protein Urine Glucose (UA) Urine Ketones Urine Blood Urine Nitrite Ur Leukocyte Esterase Urine RBC Urine WBC Ur Squamous Epith Cells Urine Bacteria COVID-19 (STEPHANI) Negative COVID-19 Clin Com See Note Blood Type Antibody Screen 01/08/21 01/08/21 01/09/21 20:25 23:45 03:58 MCV MCH MCHC RDW Plt Count MPV Immature Gran % (Auto) Neut % (Auto) Lymph % (Auto) [place] % (Auto) Eos % (Auto) Baso % (Auto) Lymph # (Auto) [place] # (Auto) Eos # (Auto) Baso # (Auto) Abs Immat Gran (auto) Absolute Neuts (auto) Absolute Nucleated RBC Nucleated RBC % (auto) PT INR APTT Anion Gap Estim Creat Clear Calc Estimated GFR POC Glucose Random Glucose Lactic Acid 0.5 Calcium Total Bilirubin Direct Bilirubin AST ALT Alkaline Phosphatase Total Creatine Kinase Troponin I High Sens Total Protein Albumin Urine Color YELLOW Urine Appearance CLEAR Urine pH 5.5 Ur Specific [place] 1.015 Urine Protein NEG Urine Glucose (UA) >=1000 H Urine Ketones NEG Urine Blood NEG Urine Nitrite NEG Ur Leukocyte Esterase NEG Urine RBC 0 Urine WBC 0-2 Ur Squamous Epith Cells 1+ Urine Bacteria NONE COVID-19 (STEPHANI) COVID-19 Clin Com Blood Type B Positive Antibody Screen NEGATIVE 01/09/21 04:37 MCV MCH MCHC RDW Plt Count MPV Immature Gran % (Auto) Neut % (Auto) Lymph % (Auto) [place] % (Auto) Eos % (Auto) Baso % (Auto) Lymph # (Auto) [place] # (Auto) Eos # (Auto) Baso # (Auto) Abs Immat Gran (auto) Absolute Neuts (auto) Absolute Nucleated RBC Nucleated RBC % (auto) PT INR APTT Anion Gap Estim Creat Clear Calc Estimated GFR POC Glucose 221 H Random Glucose Lactic Acid Calcium Total Bilirubin Direct Bilirubin AST ALT Alkaline Phosphatase Total Creatine Kinase Troponin I High Sens Total Protein Albumin Urine Color Urine Appearance Urine pH Ur Specific [place] Urine Protein Urine Glucose (UA) Urine Ketones Urine Blood Urine Nitrite Ur Leukocyte Esterase Urine RBC Urine WBC Ur Squamous Epith Cells Urine Bacteria COVID-19 (STEPHANI) COVID-19 Clin Com Blood Type Antibody Screen Imaging Radiologist's Impressions: Impressions Chest X-Ray 01/08/21 18:54 IMPRESSION: No evidence of acute disease. Head CT 01/08/21 18:54 IMPRESSION: Subtle hypodensity and loss of normal white matter differentiation left frontoparietal lobe raising concern for possible underlying developing infarct. Correlate with patient's symptoms, may consider correlation with MRI. No intracranial bleed. (Referring physician staff is being called, to be alerted of the above findings and recommendations.) EM Head/Neck CTA 01/08/21 20:51 IMPRESSION: 1. No evidence of acute intracranial hemorrhage or edematous territorial infarction. No abnormal intracranial enhancement. 2. CTA of the head and neck without evidence of acute proximal occlusion or flow-limiting stenosis. 3. The right vertebral artery appears chronically diminutive with threadlike opacification. Dominant left-sided vertebral artery. The basilar artery is mildly diminutive with bilateral origins of the posterior cerebral arteries. 4. The esophagus is dilated and fluid-filled suggestive of distal obstruction (not included within the [id number] of this exam). If not previously workup, further evaluation of cause is recommended. 5. Underlying emphysema. Multifocal part solid and part groundglass nodules in the right upper lobe suggestive of an infectious/inflammatory process. This critical result was discussed with NAVIN Peck at 21:38 on 01/08/2021 and it was ascertained that the content and urgency of the report was understood at the time of direct communication. Chest CT 01/09/21 00:37 IMPRESSION: 1. Patchy areas of mild pulmonary groundglass opacity with upper lobe predominance, suggesting a mild infectious/inflammatory etiology. 2. Semisolid material in the left lower lobe bronchus, which could be secondary to aspiration. 3. Limited evaluation for masses or adenopathy in the abdomen/pelvis in the absence of contrast. Assessment of the colon is also limited due to luminal collapse, and segments of mild colonic wall thickening/colitis are difficult to entirely exclude. 4. Extensive calcifications throughout the pancreas consistent with chronic pancreatitis. 5. Small amount of intra-abdominal free fluid. 6. Right upper lobe 5 mm lung nodule is nonspecific and may be inflammatory. According to the UPDATED 2017 Fleischner Society recommendations, the advised follow-up imaging for solid nodules < 6 mm is: LOW RISK PATIENT: No routine follow-up. HIGH RISK PATIENT: Optional CT at 12 months. Abdomen/Pelvis CT 01/09/21 00:56 IMPRESSION: 1. Patchy areas of mild pulmonary groundglass opacity with upper lobe predominance, suggesting a mild infectious/inflammatory etiology. 2. Semisolid material in the left lower lobe bronchus, which could be secondary to aspiration. 3. Limited evaluation for masses or adenopathy in the abdomen/pelvis in the absence of contrast. Assessment of the colon is also limited due to luminal collapse, and segments of mild colonic wall thickening/colitis are difficult to entirely exclude. 4. Extensive calcifications throughout the pancreas consistent with chronic pancreatitis. 5. Small amount of intra-abdominal free fluid. 6. Right upper lobe 5 mm lung nodule is nonspecific and may be inflammatory. According to the UPDATED 2017 Fleischner Society recommendations, the advised follow-up imaging for solid nodules < 6 mm is: LOW RISK PATIENT: No routine follow-up. HIGH RISK PATIENT: Optional CT at 12 months. Assessment and Plan (1) Coffee ground emesis: Status: Acute (2) Lethargic: Status: Acute (3) Pneumonia: Status: Acute (4) Esophageal obstruction: Status: Acute (5) Cachexia: Status: Acute This is a 60-year-old female with past medical history of hypertension diabetes who is brought into the hospital by her daughter with complaints of lethargy. Developed hematemesis in the ED # coffee-ground emesis - patient had coffee-ground emesis while in the ED - patient daughter denies any previous similar episodes since she has been staying with her for the past 2 days - there is esophageal dilation seen on the CT of the head and neck - at this time will keep patient NPO - consult made to GI - follow H&H # community-acquired pneumonia - seen on chest CT - afebrile, has leukocytosis - will treat her with IV ceftriaxone azithromycin - follow cultures # lethargy - possibly secondary to infection as well as GI bleed - manage both as above - PT OT # esophageal obstruction - esophageal dilatation seen on head and neck CT angiogram - no note made in the CT chest - she was consulted, possible a endoscopy # cachexia - possibly secondary to malignancy - given the esophageal dilatation as well as a weight loss gastrointestinal source may be possible - GI consulted # diabetes - low-dose sliding scale insulin - diabetic diet DVT prophylaxis SCDs
[2021-01-09] MEDS: Lactated Ringers 1,000 ML 125 ML IVCONT (06:26)
--- NOTE | 2021-01-09 06:28 | PC.NURSE ---
Dr Vance TT about HTN
[2021-01-09 08:01] LABS: Glucose, Whole Blood 217 mg/dL (60-115)
--- NOTE | 2021-01-09 08:41 | PC.NURSE ---
called to give report RN unable to take at this time will call back
--- NOTE | 2021-01-09 08:42 | PC.NURSE ---
spoke with Rajiv, pt is strict NPO meds not given this morning
--- NOTE | 2021-01-09 11:37 | P.CDIC_ITS ---
CDI Concurrent Query Service Date: 01/09/21 Documentation Clarification: Please clarify if you are treating a proba ble/suspected/likely or confirmed: Malnutrition, mild, moderate or severe Please specify if known or undetermined PLEASE DO NOT DELETE/MODIFY EXISTING CONTENT Additional information is needed in order to code to the highest accuracy and appropriate Severity of Illness (SOI). Please clarify the information noted below in your progress notes and discharge summary. Risk Factors/Clinical Indicators/Treatments BMI 12.1 Tired, weak, lethargic, cachectic. Losing weight possibily 2nd to malignancy. Albumin 2.9 CDS: Ophelia Siu CCS, CDIS Contact Number: [phone] Please Review the information above and exercise your independent professional judgment in responding to the query. If you concur, pleas document in the PROGRESS NOTES and DISCHARGE SUMMARY. If you do not agree with the query, please document in the query above. THIS QUERY IS PART OF THE PERMANENT MEDICAL RECORD
[2021-01-09 12:00] LABS: Glucose, Whole Blood 210 mg/dL (60-115)
[2021-01-09] MEDS: Insulin Lispro 100 UNIT/ML 3 ML VIAL SUBCUT ×2 (12:11→21:10)
--- NOTE | 2021-01-09 13:32 | PM.GICN ---
History of Present Illness Data of Consult Service Date: 01/09/21 Requesting physician: Mariam Villeda Primary Care Provider: Unknown Physician HPI 60 year old Swedish-speaking female brought [place] [facility] yesetr[place]: HPI Narrative: Patient presents to the ED for lethargic as per daughter. Daughter states patient woke up lethargic this morning. States she woke up with patient in the bed and patient did not want to eat. Order states she went out and came back and patient still was in the same position. But does admit the house was very hot. Daughter states yesterday patient was walking around the parking eating fine. States patient does not want to eat today. EMS states daughter informed him patient woke up lethargic . On arrival to the ED patient's vitals are significant for temperature of 98.5?, heart rate of 98, respiratory rate of 16, blood pressure of 159/104, satting 98% on room air Labs are significant for WBC count of 13.4, hemoglobin of 10, BUN of 26, creatinine 0.65, alk-phos of 323, albumin of 2.9, UA negative except for glucose, COVID-19 negative. Hx obtained from patient's daughter who was at her bedside and interpreted for the patient. Patient's daughter reports that she recently brought her from [place] after she was concerned about her health, losing weight, and not doing well. Pt's daughter tells me that she was recently hospitalized in [facility] for week for low blood sugars associated with seizures. Patient was diagnosed with chronic pancreatitis and discharged on pancreatic enzymes. Patient complains of intermittent, sharp 6/10 lower abdominal pain for the past 2 weeks. Pain has been associated with diarrhea and constipation. She has noted black bowel movements for the past 2 weeks and had an episode of hematemesis yesterday while at [facility] Patient's p.o. intake has been poor and she has lost a significant amount of weight over the past several months. Patient has a history of heavy alcohol abuse in the past and quit did 2 years ago when she was diagnosed with diabetes mellitus. She also has a history of heroin use and quitted 14 years ago and is on Methadone. Denies being on chronic anticoagulation. Patient denies known family history of colon polyps, colon cancer or other GI malignancies. IMAGING STUDIES: ABD CT SCAN SHOWED: 1. Patchy areas of mild pulmonary groundglass opacity with upper lobe predominance, suggesting a mild infectious/inflammatory etiology. 2. Semisolid material in the left lower lobe bronchus, which could be secondary to aspiration. 3. Limited evaluation for masses or adenopathy in the abdomen/pelvis in the absence of contrast. Assessment of the colon is also limited due to luminal collapse, and segments of mild colonic wall thickening/colitis are difficult to entirely exclude. 4. Extensive calcifications throughout the pancreas consistent with chronic pancreatitis. 5. Small amount of intra-abdominal free fluid. 6. Right upper lobe 5 mm lung nodule is nonspecific and may be inflammatory. According to the UPDATED 2017 Fleischner Society recommendations, the advised follow-up imaging for solid nodules < 6 mm is: LOW RISK PATIENT: No routine follow-up. HIGH RISK PATIENT: Optional CT at 12 months. The esophagus is dilated and fluid-filled suggestive of distal obstruction (not included within the [id number] of this exam). If not previously workup, further evaluation of cause is recommended. ENDOSCOPIC STUDIES: Patient denies having an upper endoscopy or colonoscopy in the past Review of Systems Constitutional: Constitutional: Reports daytime sleepiness, Reports fatigue, Denies fever(s), Denies headache(s), Reports lethargy, Reports poor appetite, Reports weakness and Reports weight loss Eyes: Eyes: Denies eye discharge and Denies irritation ENT: Reports Normal hearing present, Denies dysphagia, Denies dizziness and Denies headache(s) Cardiovascular: Cardiovascular: Denies chest pain, Denies leg edema and Denies dyspnea on exertion Respiratory: Respiratory: Denies cough, Denies dyspnea on exertion and Denies wheezing Gastrointestinal: Gastrointestinal: Reports abdominal pain, Reports melena, Denies change in bowel habits, Reports constipation, Denies dysphagia, Denies heartburn, Reports diarrhea and Reports hematemesis Genitourinary: Genitourinary: Denies difficulty voiding and Denies dysuria Musculoskeletal: Musculoskeletal: Denies back pain, Denies arthralgias, Reports numbness (both hands) and Reports tingling (both hands) Integumentary/Breasts: Skin/Breast: Denies pruritus, Denies rash and Denies jaundice Neurologic: Reports Normal hearing present, Denies Abnormal speech present, Denies dizziness, Denies headache(s), Reports numbness (both hands), Denies seizure-like activity, Reports tingling (both hands) and Reports weakness Psychiatric: Psychiatric: Reports anxiety, Reports depression and Denies panic attacks Endocrine: Endocrine: Denies cold intolerance, Reports fatigue, Denies flushing and Denies heat intolerance Hematologic/Lymphatic: Hematologic/Lymphatic: Denies easy bleeding and Denies easy bruising Allergic/Immunologic: Allergic/Immunologic: Denies wheezing PMFSH Past Medical History Medical History (Updated 02/02/21 @ 08:39 by Bri Petty MD) Anemia Diabetes Hypertension Methadone dependence Mild emphysema Thiamine deficiency Urge urinary incontinence Family History Family History (Updated 02/02/21 @ 08:11 by Bri Petty MD) Father Throat cancer Mother No problems noted. Surgical History Surgical History No pertinent past surgical history Social History Social History Household Members: Children Household Members Other:: Daughter Housing: Apartment Housing Other:: [facility] Do you presently have visiting nurse or other home services: No Alcohol intake: former Year quit: 2019 Patient Tobacco Use Status: Current everyday Tobacco user Tobacco use type: Cigarette Cigarettes Per Day: 5 e-Cigarette/Vaping Use: Never Used Second Hand Smoke Exposure: Yes Substance Use Type: Heroin and Marijuana service: No Current occupational status: disabled Meds Allergies Allergy/AdvReac Type Severity Reaction Status Date / Time No Known Allergies Allergy Verified 02/02/21 08:03 Active Medications: Current Medications Generic Name Dose Route Start Last Admin Trade Name Freq PRN Reason Stop Dose Admin Acetaminophen 650 mg 01/09/21 03:49 Acetaminophen 325 Mg Tablet PO Q6H PRN Pain, Mild (Pain Scale 1-3) Docusate Sodium 100 mg 01/09/21 03:49 Docusate Sodium 100 Mg Capsule PO DAILY PRN Constipation Ceftriaxone Sodium 1 gm/ 50 mls @ 100 mls/hr 01/09/21 22:00 Sodium Chloride IV Q24H [facility] Azithromycin 500 mg/ Sodium 250 mls @ 125 mls/hr 01/09/21 22:00 Chloride IV Q24H [facility] Lactated Ringer's 1,000 mls @ 75 mls/hr 01/09/21 06:00 01/09/21 10:06 Lr IVCONT 75 mls/hr .[id number] [facility] Infusion Insulin Human Lispro 0 unit 01/09/21 07:30 01/09/21 12:11 Insulin Lispro 100 Unit/Ml 3 Ml Vial SUBCUT 4 unit QIDACHS [facility] Administration Protocol Morphine Sulfate 2 mg 01/09/21 08:37 Morphine Sulfate 4 Mg/Ml Cartridge IVPUSH Q4H PRN Pain, Severe (Pain Scale 7-10) Ondansetron HCl 4 mg 01/09/21 03:49 Ondansetron Hcl 4 Mg/2 Ml Vial IVPUSH Q8H PRN Nausea and Vomiting Sodium Chloride 3 ml 01/09/21 08:00 01/09/21 10:06 0.9 % Sodium Chloride Flush 3 Ml Syringe IVFLUSH Not Given QSHIFT [facility] Home Medications Medication Instructions Recorded Confirmed Last Taken Type Humalog KwikPen Insulin 4 unit SUBCUT TID 01/09/21 02/02/21 Unknown History ascorbic acid (vitamin C) 500 mg PO DAILY 01/09/21 02/02/21 Unknown History cholecalciferol (vitamin D3) 25 mcg PO DAILY 01/09/21 02/02/21 Unknown History ferrous sulfate 325 mg PO Q OTHER DAY 01/09/21 02/02/21 Unknown History gabapentin 600 mg PO TID 01/09/21 02/02/21 Unknown History insulin degludec 5 unit SUBCUT BEDTIME 01/09/21 02/02/21 Unknown History wqsvkl-fjqfiphs-aepihvq 3 cap PO TIDWM 01/09/21 02/02/21 Unknown History lisinopril 5 mg PO DAILY 01/09/21 02/02/21 Unknown History methadone 17 mg PO DAILY 01/09/21 02/02/21 Unknown History multivitamin with minerals 1 tab PO DAILY 01/09/21 02/02/21 Unknown History pyridoxine (vitamin B6) 50 mg PO DAILY 01/09/21 02/02/21 Unknown History thiamine HCl (vitamin B1) 100 mg PO DAILY 01/09/21 02/02/21 Unknown History Physical Exam Vital Signs: Vital Signs: Last Vital Signs Temp 97.8 F 01/09/21 11:54 Pulse 103 H 01/09/21 11:54 Resp 15 01/09/21 11:54 BP 164/95 H 01/09/21 11:54 Pulse Ox 99 01/09/21 11:54 Body Mass Index 12.1 Const: General: no acute distress, ill appearing and lethargic Nutritional Appearance: cachectic Orientation/consciousness: patient oriented x3 and lethargic Limitations: language barrier HENMT: Head: Yes normal to inspection Ears: hearing grossly normal bilaterally Mouth: Normal oral and palatal mucosa present Eyes: Sclerae: sclerae normal Pupils: Equal, round and reactive pupils present Neck: Neck: Yes normal visual inspection Chest: Chest palpation & inspection: normal inspection of the chest Resp: Effort & Inspection: normal respiratory effort Auscultation: clear to auscultation bilaterally Cardio: Palpation: normal PMI Rate: regular rate Rhythm: regular rhythm Heart sounds: S1 normal heart sound present, S2 normal heart sound present and no murmurs GI: Palpation (GI): Soft to palpation, Tenderness to palpation present (GI) (mild diffuse tenderness) and No hepatosplenomegaly present Auscultation: normal bowel sounds Rectal Exam - Female: deferred Skin: General skin exam: no rashes or lesions noted Neuro: General: patient oriented x3, gait normal and moves all extremities Cranial nerves: Yes Equal, round and reactive pupils present and Yes Normal hearing present Speech: No Abnormal speech present Psych: Appearance: disheveled Affect: Anxious affect present Insight: Limited insight present (Psych) Judgement: Limited judgement present (Psych) Results Labs CBC & Chem 7: 01/11/21 06:27 01/10/21 06:37 Labs: Short CBC 01/08/21 Range/Units 19:35 WBC 13.4 H (4.8-10.8) X10*3/uL Hgb 10.0 L (12.0-16.0) g/dl Hct 30.7 L (37-47) % Plt Count 385 (160-400) X10*3/uL BMP 01/08/21 19:35 Sodium 138 Potassium 4.3 Chloride 102 Carbon Dioxide 28 BUN 26 H Creatinine 0.65 Calcium 8.3 L Cardiac Enzymes 01/08/21 Range/Units 19:35 Total Creatine Kinase 78 (26-140) U/L Liver Function 01/08/21 01/08/21 Range/Units 19:35 19:35 Total Bilirubin 0.4 0.5 (0.0-1.0) mg/dL Direct Bilirubin < 0.2 (0.0-0.5) mg/dL AST 28 29 (5-31) U/L ALT 24 25 (0-31) U/L Alkaline Phosphatase 314 H 323 H (39-117) U/L Albumin 2.8 L 2.9 L (3.5-5.0) g/dL Urine 01/08/21 Range/Units 20:25 Urine Color YELLOW Urine Appearance CLEAR Urine pH 5.5 (5.0-8.0) Ur Specific [place] 1.015 (1.005-1.025) Urine Protein NEG (NEG-TRACE) MG/DL Urine Glucose (UA) >=1000 H (NEG) MG/DL Microbiology Microbiology Results: Microbiology 01/08/21 00:00 Blood - Venous Blood Culture - Final 01/08/21 00:00 Blood - Venous Blood Culture - Final Assessment and Plan (1) Coffee ground emesis: Status: Acute (2) Esophageal obstruction: Status: Acute (3) Malnourished: Status: Acute (4) Chronic pancreatitis: Status: Acute (5) Cachexia: Status: Acute 60 year old Swedish-speaking female with hypertension diabetes mellitus admitted [place] [facility] with lethargy, abdominal pain, poor p.o. intake with weight loss and anemia. Patient gives history of black stools and had an episode of hematemesis at [facility]. Abdominal CT scan showed pancreatic calcifications suggestive of chronic pancreatitis from past alcohol abuse. Chest CT scan showed a dilated fluid-filled esophagus. Pt's wt loss is likely due to chronic pancreatitis and ? esophageal obstruction RECOMMENDATIONS: 1. Check serial H & H and transfuse if hct is < 21-22% 2. iron studies, vitamin B12 level - added to am labs. 3. Patient needs an upper endoscopy for further evaluation of esophageal obstruction - procedure and potential complications including bleeding, perforation, drug reaction and aspiration were reviewed with the patient and her daughter and consent was obtained. 4. Check GGT to confirm AP elevation is of hepatic origin. 5. Pancreatic enzyme replacement after EGD for chronic pancreatitis Procedures Date of Service Date of Service: 01/09/21
[2021-01-09 16:20] LABS: Glucose, Whole Blood 134 mg/dL (60-115)
[2021-01-09] MEDS: Lactated Ringers 1,000 ML 75 ML IVCONT (16:45)
[2021-01-09 20:19] LABS: Glucose, Whole Blood 188 mg/dL (60-115)
[2021-01-09] MEDS: cefTRIAXone sodium 1 GM in 0.9 % Sodium Chloride 50 ML IV (21:09)
[2021-01-09] MEDS: Azithromycin 500 MG in 0.9 % Sodium Chloride 250 ML 125 MG IV (22:05)
[2021-01-10] VITALS (14 sets, daily range): BP systolic 87–185; BP diastolic 60–116; PULSE 74–101; RESP 14–18; TEMP 36.1–36.8; O2SAT 100
[2021-01-10 06:50] LABS: MANUAL DIFF FLAG NO
[2021-01-10 06:56] LABS: Basophils Percent Auto 0.5 % (0-2); Eosinophils Absolute Auto 0.3 X10*3/uL (0.0-0.4); Eosinophils Percent Auto 4.2 % (0-4); Hematocrit 26.5 % (37-47); Hemoglobin 8.5 g/dl (12.0-16.0); Imm Gran Abs Auto 0.04 X10*3/uL (0.00-0.03); Imm Gran Pct Auto 0.5 % (0.0-0.4); Lymphocytes Absolute Auto 2.4 X10*3/uL (1.2-4.9); Lymphocytes Percent Auto 30.8 % (20-40); Mean Corpuscular HGB Conc 32.1 g/dl (31.0-35.0); Mean Corpuscular Hemoglobin 30.8 pg (27.0-33.0); Mean Platelet Volume 9.2 fL (9.4-12.3); Monocytes Absolute Auto 0.5 X10*3/uL (0.1-1.2); Monocytes Percent Auto 6.3 % (2-11); Neutrophils Absolute Auto 4.5 X10*3/uL (2.0-8.3); Neutrophils Percent Auto 57.7 % (45-73); Platelet Count 380 X10*3/uL (160-400); Red Blood Count 2.76 X10*6/uL (4.20-5.50); Red Cell Distribution Width 13.2 % (11.0-16.0); White Blood Count 7.8 X10*3/uL (4.8-10.8)
[2021-01-10 07:26] LABS: Iron 27 mcg/dL (30-160); Percent Iron Saturation 11 % (15-50); Total Iron Binding Capacity 235 mcg/dL (228-428); Unsaturated Iron Binding 208 ug/dL
[2021-01-10 07:30] LABS: Anion Gap 10 (12-20); Blood Urea Nitrogen 15 mg/dL (9-16); Calcium 9.1 mg/dL (8.4-10.2); Carbon Dioxide 29 mmol/L (22-29); Chloride 102 mmol/L (96-108); Creatinine Clr Calc Pharmacy 56.3; Estimated Glomerular Filt Rate > 60; Glucose Random 99 mg/dL (60-115); Potassium 4.6 mmol/L (3.3-5.1); Sodium 136 mmol/L (135-145)
[2021-01-10 07:45] LABS: Alanine Aminotransferase 17 U/L (0-31); Albumin Level 2.6 g/dL (3.5-5.0); Alkaline Phosphatase 245 U/L (39-117); Aspartate Amino Transferase 16 U/L (5-31); Bilirubin Direct < 0.2 mg/dL (0.0-0.5); Bilirubin Total 0.4 mg/dL (0.0-1.0); Total Protein 5.6 g/dL (6.5-8.0)
[2021-01-10 07:48] LABS: Ferritin 72 ng/mL (10-250)
[2021-01-10 08:02] LABS: Glucose, Whole Blood 107 mg/dL (60-115)
[2021-01-10] MEDS: Lactated Ringers 1,000 ML 75 ML IVCONT (08:24)
[2021-01-10] MEDS: 0.9 % Sodium Chloride Flush 3 ML SYRINGE IVFLUSH ×2 (08:26→16:42)
--- NOTE | 2021-01-10 08:41 | PHA.MEDREC ---
Pharmacy Consult ? Medication Reconciliation Pharmacy has completed the medication reconciliation.
[2021-01-10 11:24] LABS: Glucose, Whole Blood 129 mg/dL (60-115)
[2021-01-10] MEDS: Lactated Ringers 1,000 ML 100 ML IVCONT ×2 (13:00→16:43)
--- NOTE | 2021-01-10 14:15 | P.CONAN_ITS ---
HPI - Anesthesia Eval Consult details Narrative: 60 yo female patient here for EGD PMFSH Active Problems Active Problems: All Active Problems (Updated 01/09/21 @ 19:47 by Celina Pacheco MD) Elevated alkaline phosphatase level (Acute) Malnourished (Acute) Chronic pancreatitis (Acute) Cachexia (Acute) Coffee ground emesis (Acute) Lethargic (Acute) Pneumonia (Acute) Esophageal obstruction (Acute) Past Medical History Medical History (Updated 01/10/21 @ 14:48 by Clarita Carpio) Anemia Diabetes Hypertension Methadone dependence Family History Family history of problems with anesthesia: No Surgical History History of Problems with Anesthesia: No Social History Social History (Updated 01/10/21 @ 14:53 by Clarita Carpio) Household Members: Children Household Members Other:: Daughter Housing: Apartment Housing Other:: [facility] Do you presently have visiting nurse or other home services: No Alcohol intake: former Year quit: 2019 Patient Tobacco Use Status: Current everyday Tobacco user Tobacco use type: Cigarette Cigarette Packs Per Day: 1 Cigarettes Per Day: 3 Second Hand Smoke Exposure: Yes Substance Use Type: Heroin and Marijuana Other Past Substance Use Problem:: H/o heroin abuse. Quit 14 years ago. On methadone. service: No Current occupational status: unemployed Meds Allergies Allergy/AdvReac Type Severity Reaction Status Date / Time No Known Allergies Allergy Verified 01/08/21 18:54 Active Medications: Current Medications Generic Name Dose Route Start Last Admin Trade Name Freq PRN Reason Stop Dose Admin Acetaminophen 650 mg 01/09/21 03:49 Acetaminophen 325 Mg Tablet PO Q6H PRN Pain, Mild (Pain Scale 1-3) Docusate Sodium 100 mg 01/09/21 03:49 Docusate Sodium 100 Mg Capsule PO DAILY PRN Constipation Ferrous Sulfate 300 mg 01/10/21 20:00 Ferrous Sulfate 300 Mg/5 Ml Liquid PO BIDWM [facility] Ceftriaxone Sodium 1 gm/ 50 mls @ 100 mls/hr 01/09/21 22:00 01/09/21 21:52 Sodium Chloride IV Infused Q24H [facility] Infusion Azithromycin 500 mg/ Sodium 250 mls @ 125 mls/hr 01/09/21 22:00 01/10/21 01:16 Chloride IV Infused Q24H [facility] Infusion Lactated Ringer's 1,000 mls @ 75 mls/hr 01/09/21 06:00 01/10/21 08:24 Lr IVCONT 75 mls/hr .[id number] [facility] Administration Insulin Human Lispro 0 unit 01/09/21 07:30 01/10/21 11:22 Insulin Lispro 100 Unit/Ml 3 Ml Vial SUBCUT Not Given QIDACHS [facility] Protocol Methadone HCl 20 mg 01/11/21 09:00 Methadone Hcl 1 Mg/0.1 Ml Oral.Conc PO DAILY [facility] Morphine Sulfate 2 mg 01/09/21 08:37 Morphine Sulfate 4 Mg/Ml Cartridge IVPUSH Q4H PRN Pain, Severe (Pain Scale 7-10) Ondansetron HCl 4 mg 01/09/21 03:49 Ondansetron Hcl 4 Mg/2 Ml Vial IVPUSH Q8H PRN Nausea and Vomiting Sodium Chloride 3 ml 01/09/21 08:00 01/10/21 08:26 0.9 % Sodium Chloride Flush 3 Ml Syringe IVFLUSH 3 ml QSHIFT [facility] Administration Home Medications Medication Instructions Recorded Confirmed Last Taken Type alendronate 70 mg PO QWEEK 01/09/21 01/09/21 Unknown History ascorbic acid (vitamin C) 500 mg PO DAILY 01/09/21 01/09/21 Unknown History cholecalciferol (vitamin D3) 25 mcg PO DAILY 01/09/21 01/09/21 Unknown History diclofenac sodium [Voltaren 2 g TOPICAL TID PRN 01/09/21 01/09/21 Unknown History Arthritis Pain] ferrous sulfate 325 mg PO Q OTHER DAY 01/09/21 01/09/21 Unknown History gabapentin 600 mg PO TID 01/09/21 01/09/21 Unknown History insulin degludec 5 unit SUBCUT BEDTIME 01/09/21 01/09/21 Unknown History insulin lispro [Humalog KwikPen 4 unit SUBCUT TID 01/09/21 01/09/21 Unknown History Insulin] protpr-xjomwfsd-gbrnvsr 3 cap PO TIDWM 01/09/21 01/09/21 Unknown History lisinopril 5 mg PO DAILY 01/09/21 01/09/21 Unknown History methadone 17 mg PO DAILY 01/09/21 01/09/21 Unknown History multivitamin with minerals 1 tab PO DAILY 01/09/21 01/09/21 Unknown History pyridoxine (vitamin B6) 50 mg PO DAILY 01/09/21 01/09/21 Unknown History thiamine HCl (vitamin B1) 100 mg PO DAILY 01/09/21 01/09/21 Unknown History Exam Exam Date and Time: January 10, 2021 1415 Height,Weight and Vital Signs: Height 5 ft 4 in Weight 32 kg Last Vital Signs Temp 97.7 F 01/10/21 13:18 Pulse 86 01/10/21 14:13 Resp 14 01/10/21 13:18 BP 179/112 H 01/10/21 14:13 Pulse Ox 100 01/10/21 13:18 Pertinent Lab Results Pertinent Lab Results: Laboratory Tests 01/08/21 01/08/21 01/08/21 19:35 19:35 19:35 WBC 13.4 H RBC 3.19 L Hgb 10.0 L Hct 30.7 L MCV 96.2 MCH 31.3 MCHC 32.6 RDW 13.2 Plt Count 385 MPV 9.2 L Immature Gran % (Auto) 0.4 Neut % (Auto) 80.7 H Lymph % (Auto) 13.2 L Hanson % (Auto) 4.3 Eos % (Auto) 1.0 Baso % (Auto) 0.4 Lymph # (Auto) 1.8 Hanson # (Auto) 0.6 Eos # (Auto) 0.1 Baso # (Auto) 0.1 Abs Immat Gran (auto) 0.06 H Absolute Neuts (auto) 10.8 H Absolute Nucleated RBC 0.000 Nucleated RBC % (auto) 0.0 PT 13.2 H INR 1.1 APTT 31.3 Sodium 138 Potassium 4.3 Chloride 102 Carbon Dioxide 28 Anion Gap 12 BUN 26 H Creatinine 0.65 Estim Creat Clear Calc 47.6 Estimated GFR > 60 POC Glucose Random Glucose 179 H Lactic Acid Calcium 8.3 L Iron TIBC % Saturation Unsat Iron Binding Ferritin Total Bilirubin 0.4 Direct Bilirubin AST 28 ALT 24 Alkaline Phosphatase 314 H Total Creatine Kinase Troponin I High Sens Total Protein 6.3 L Albumin 2.8 L Carcinoembryonic Ag Urine Color Urine Appearance Urine pH Ur Specific [place] Urine Protein Urine Glucose (UA) Urine Ketones Urine Blood Urine Nitrite Ur Leukocyte Esterase Urine RBC Urine WBC Ur Squamous Epith Cells Urine Bacteria COVID-19 ([facility]) COVID-19 Clin Com Blood Type Antibody Screen 01/08/21 01/08/21 01/08/21 19:35 19:35 19:35 WBC RBC Hgb Hct MCV MCH MCHC RDW Plt Count MPV Immature Gran % (Auto) Neut % (Auto) Lymph % (Auto) Hanson % (Auto) Eos % (Auto) Baso % (Auto) Lymph # (Auto) Hanson # (Auto) Eos # (Auto) Baso # (Auto) Abs Immat Gran (auto) Absolute Neuts (auto) Absolute Nucleated RBC Nucleated RBC % (auto) PT INR APTT Sodium Potassium Chloride Carbon Dioxide Anion Gap BUN Creatinine Estim Creat Clear Calc Estimated GFR POC Glucose Random Glucose Lactic Acid Calcium Iron TIBC % Saturation Unsat Iron Binding Ferritin Total Bilirubin 0.5 Direct Bilirubin < 0.2 AST 29 ALT 25 Alkaline Phosphatase 323 H Total Creatine Kinase 78 Troponin I High Sens < 3.5 Total Protein 6.3 L Albumin 2.9 L Carcinoembryonic Ag Urine Color Urine Appearance Urine pH Ur Specific [place] Urine Protein Urine Glucose (UA) Urine Ketones Urine Blood Urine Nitrite Ur Leukocyte Esterase Urine RBC Urine WBC Ur Squamous Epith Cells Urine Bacteria COVID-19 ([facility]) Negative COVID-19 Clin Com See Note Blood Type Antibody Screen 01/08/21 01/08/21 01/09/21 20:25 23:45 03:58 WBC RBC Hgb Hct MCV MCH MCHC RDW Plt Count MPV Immature Gran % (Auto) Neut % (Auto) Lymph % (Auto) Hanson % (Auto) Eos % (Auto) Baso % (Auto) Lymph # (Auto) Hanson # (Auto) Eos # (Auto) Baso # (Auto) Abs Immat Gran (auto) Absolute Neuts (auto) Absolute Nucleated RBC Nucleated RBC % (auto) PT INR APTT Sodium Potassium Chloride Carbon Dioxide Anion Gap BUN Creatinine Estim Creat Clear Calc Estimated GFR POC Glucose Random Glucose Lactic Acid 0.5 Calcium Iron TIBC % Saturation Unsat Iron Binding Ferritin Total Bilirubin Direct Bilirubin AST ALT Alkaline Phosphatase Total Creatine Kinase Troponin I High Sens Total Protein Albumin Carcinoembryonic Ag Urine Color YELLOW Urine Appearance CLEAR Urine pH 5.5 Ur Specific [place] 1.015 Urine Protein NEG Urine Glucose (UA) >=1000 H Urine Ketones NEG Urine Blood NEG Urine Nitrite NEG Ur Leukocyte Esterase NEG Urine RBC 0 Urine WBC 0-2 Ur Squamous Epith Cells 1+ Urine Bacteria NONE COVID-19 ([facility]) COVID-19 Clin Com Blood Type B Positive Antibody Screen NEGATIVE 01/09/21 01/09/2121 04:37 07:58 11:51 WBC RBC Hgb Hct MCV MCH MCHC RDW Plt Count MPV Immature Gran % (Auto) Neut % (Auto) Lymph % (Auto) Hanson % (Auto) Eos % (Auto) Baso % (Auto) Lymph # (Auto) Hanson # (Auto) Eos # (Auto) Baso # (Auto) Abs Immat Gran (auto) Absolute Neuts (auto) Absolute Nucleated RBC Nucleated RBC % (auto) PT INR APTT Sodium Potassium Chloride Carbon Dioxide Anion Gap BUN Creatinine Estim Creat Clear Calc Estimated GFR POC Glucose 221 H 217 H 210 H Random Glucose Lactic Acid Calcium Iron TIBC % Saturation Unsat Iron Binding Ferritin Total Bilirubin Direct Bilirubin AST ALT Alkaline Phosphatase Total Creatine Kinase Troponin I High Sens Total Protein Albumin Carcinoembryonic Ag Urine Color Urine Appearance Urine pH Ur Specific [place] Urine Protein Urine Glucose (UA) Urine Ketones Urine Blood Urine Nitrite Ur Leukocyte Esterase Urine RBC Urine WBC Ur Squamous Epith Cells Urine Bacteria COVID-19 ([facility]) COVID-19 Clin Com Blood Type Antibody Screen 01/09/21 01/09/21 01/10/21 16:16 20:10 06:37 WBC 7.8 RBC 2.76 L Hgb 8.5 L Hct 26.5 L MCV 96.0 MCH 30.8 MCHC 32.1 RDW 13.2 Plt Count 380 MPV 9.2 L Immature Gran % (Auto) 0.5 H Neut % (Auto) 57.7 Lymph % (Auto) 30.8 Hanson % (Auto) 6.3 Eos % (Auto) 4.2 H Baso % (Auto) 0.5 Lymph # (Auto) 2.4 Hanson # (Auto) 0.5 Eos # (Auto) 0.3 Baso # (Auto) 0.0 Abs Immat Gran (auto) 0.04 H Absolute Neuts (auto) 4.5 Absolute Nucleated RBC 0.000 Nucleated RBC % (auto) 0.0 PT INR APTT Sodium Potassium Chloride Carbon Dioxide Anion Gap BUN Creatinine Estim Creat Clear Calc Estimated GFR POC Glucose 134 H 188 H Random Glucose Lactic Acid Calcium Iron TIBC % Saturation Unsat Iron Binding Ferritin Total Bilirubin Direct Bilirubin AST ALT Alkaline Phosphatase Total Creatine Kinase Troponin I High Sens Total Protein Albumin Carcinoembryonic Ag Urine Color Urine Appearance Urine pH Ur Specific [place] Urine Protein Urine Glucose (UA) Urine Ketones Urine Blood Urine Nitrite Ur Leukocyte Esterase Urine RBC Urine WBC Ur Squamous Epith Cells Urine Bacteria COVID-19 ([facility]PHANI) COVID-19 [facility] Com Blood Type Antibody Screen 01/10/21 01/10/21 01/10/21 06:37 06:37 06:37 WBC RBC Hgb Hct MCV MCH MCHC RDW Plt Count MPV Immature Gran % (Auto) Neut % (Auto) Lymph % (Auto) Hanson % (Auto) Eos % (Auto) Baso % (Auto) Lymph # (Auto) Hanson # (Auto) Eos # (Auto) Baso # (Auto) Abs Immat Gran (auto) Absolute Neuts (auto) Absolute Nucleated RBC Nucleated RBC % (auto) PT INR APTT Sodium 136 Potassium 4.6 Chloride 102 Carbon Dioxide 29 Anion Gap 10 L BUN 15 Creatinine 0.55 Estim Creat Clear Calc 56.3 Estimated GFR > 60 POC Glucose Random Glucose 99 D Lactic Acid Calcium 9.1 D Iron 27 L TIBC 235 % Saturation 11 L Unsat Iron Binding 208 Ferritin 72 Total Bilirubin 0.4 Direct Bilirubin < 0.2 AST 16 D ALT 17 Alkaline Phosphatase 245 H D Total Creatine Kinase Troponin I High Sens Total Protein 5.6 L Albumin 2.6 L Carcinoembryonic Ag 1.70 Urine Color Urine Appearance Urine pH Ur Specific [place] Urine Protein Urine Glucose (UA) Urine Ketones Urine Blood Urine Nitrite Ur Leukocyte Esterase Urine RBC Urine WBC Ur Squamous Epith Cells Urine Bacteria COVID-19 ([facility]PHANI) COVID-19 [facility] Com Blood Type Antibody Screen 01/10/21 01/10/21 07:44 11:14 WBC RBC Hgb Hct MCV MCH MCHC RDW Plt Count MPV Immature Gran % (Auto) Neut % (Auto) Lymph % (Auto) Hanson % (Auto) Eos % (Auto) Baso % (Auto) Lymph # (Auto) Hanson # (Auto) Eos # (Auto) Baso # (Auto) Abs Immat Gran (auto) Absolute Neuts (auto) Absolute Nucleated RBC Nucleated RBC % (auto) PT INR APTT Sodium Potassium Chloride Carbon Dioxide Anion Gap BUN Creatinine Estim Creat Clear Calc Estimated GFR POC Glucose 107 129 H Random Glucose Lactic Acid Calcium Iron TIBC % Saturation Unsat Iron Binding Ferritin Total Bilirubin Direct Bilirubin AST ALT Alkaline Phosphatase Total Creatine Kinase Troponin I High Sens Total Protein Albumin Carcinoembryonic Ag Urine Color Urine Appearance Urine pH Ur Specific [place] Urine Protein Urine Glucose (UA) Urine Ketones Urine Blood Urine Nitrite Ur Leukocyte Esterase Urine RBC Urine WBC Ur Squamous Epith Cells Urine Bacteria COVID-19 ([facility]) COVID-19 Clin Com Blood Type Antibody Screen Airway Mallampati Class: II TM Dist: >3cm Neck ROM: Full Loose/Missing/Broken Teeth: Yes (Poor- many missing, some broken) Heart: RRR Lungs: CTAB Assessment and Plan Assessment Anesthesia Assessment: Anesthesia Plan Discussed and Chart Reviewed Final Anesthetic Review NPO: Yes ASA Class: III Final Preanesthetic Review: No Changes in Pt Med Stat, Meds/Allgs Chart Reviewed, Consent Obtained/Reviewed and Anes Risks/Benef Reviewed Patient Risk: Intermediate Procedure Risk: Low Assessment/Block/Sedation in SS: Assess/Block/Sedation-SS Anesthetic Plan Anesthetic Plan: MAC: Disposition: Inp. Admit - Standard Bed
[2021-01-10 14:24] LABS: Glucose, Whole Blood 117 mg/dL (60-115)
--- NOTE | 2021-01-10 14:39 | W.PM.OPN ---
Operative Note Operative Note Date of Service: 01/10/21 Narrative: Pre-op diagnosis: Dysphagia, abdominal pain, weight loss Post-op diagnosis: other (Esophagitis, possible mass at GEJ, Gastritis with multiple gastric ulcers.) Procedure: FLEXIBLE TRANSORAL UPPER GASTROINTESTINAL ENDOSCOPY WITH BIOPSIES Consent: Indications for the procedure and potential complications of bleeding, perforation, reaction to medications and missed diagnosis were discussed with the patient and informed consent was obtained. Instrument: Olympus GIF H 190 mid size upper endoscope Monitoring: Vital signs and clinical assessment, continuous EKG monitoring, Pulse oximetry, Carbon Dioxide monitoring and blood pressure monitoring were done throughout the procedure. Procedure: The patient was placed in the left lateral decubitis position and pre-procedure medications were administered and a bite block was placed. The endoscope was inserted into the mouth and advanced under direct vision to the third part of duodenum. A careful inspection was made as the upper endoscope was withdrawn including a retroflexed examination of the proximal stomach; Findings and interventions are described below. Findings: Larynx: Normal Esophagus: Esophagitis with erythematous mucosa from 25 to 35 cms. GE junction at 35 cms. Edematous folds versus mass on gastric side of GEJ - multiple biopsies obtained. Stomach: Severe gastric erythema with submucosal hemorrhages in the gastric body and antrum. Multiple 1-2 cms chronic appearing non bleeding ulcers in the fundus. A 2.5 to 3 cms ulcer in the antrum with yellow exudates and black eschars without active bleeding. Biopsies were obtained from the antrum and body of the stomach. No biopsies obtained from the ulcers due to recent bleeding. Grade 2 flap valve on retroflexed examination of the cardia. Duodenum: Normal bulb and descending duodenum. Biopsies were obtained from 3rd part of the duodenum showed for celiac sprue Intervention: Biopsies as noted above Impression and Post Procedure Diagnosis: Endoscopy Findings: ESOPHAGUS: Esophagitis, edematous folds versus mass on gastric side of GEJ. STOMACH: Multiple gastric ulcers - possibly due to alendronate. Gastric erythema with submucosal hemorrhages possibly gastric irritation from alendronate versus Kaposi's sarcoma. No active bleeding seen during EGD Plan: Await pathology results. Check HIV serologies Hold Alendronate and start IV PPI and switch to PO once pt starts eating Repeat EGD in 8 to 10 weeks to confirm gastric ulcers are healing Surgeon: Celina Pacheco MD Anesthesia: MAC (Santana Lund CRNA) Was an Food Service Steward used for this Procedure?: No Estimated blood loss (mL): 0 Pathology: other (A: SMALL BOWEL BXS R/O CELIAC B: GASTRIC ANTRUM BXS R/O H PYLORI C: GASTRIC BODY BXS R/O KAPOSI SARCOMA D: DISTAL ESOPHAGUS R/O MALIGNANCY) Condition: stable Disposition: PACU
--- NOTE | 2021-01-10 14:39 | MHC.SHP ---
Pre-Procedural Eval Section A The patient is an INPATIENT: Yes Changes since office visit: Yes New Medical Problems, Yes Changes in Medication and Yes Patient answered all questions; No Cold of Flu in the past 2 weeks The History & Physical has been completed within 30 days and I have reviewed it.: Yes Section B Chief Complaint: PNA Allergies: Allergies Allergy/AdvReac Type Severity Reaction Status Date / Time No Known Allergies Allergy Verified 01/08/21 18:54 Plan I have reviewed the history and physical and performed a pertinent physical examination on my patient. No changes have occurred unless specified.
--- NOTE | 2021-01-10 14:55 | MHC.CM.PN ---
EMR REVIEWED, PT ADMITTED W/CAP AND POSSIBLE ESOPHAGEAL OBTRUCTION, PT HAVING ENDOSCOPY AT TIME OF THIS NOTE, CM MET W/PT AND DTR VIA LICENSED [employer]ICIAN, PT HAS RECENTLY MOVED FROM [place] TO [place] TO BE LIVE W/AND BE CLOSER TO FAMILY, PT USES A FRONT WHEELED WALKER AND HAS A WC IN HOME FOR DISTANCE, PT & DAUGHTER DENY ANY OTHER DME, PT CURRENTLY HAS NO HOME SERVICES AND WAS SEEN BY PT WHO ARE RECOMMENDING HOME SERVICES, PER PT'S DTR PT WILL HAVE HER OWN APT ONCE HOUSING BENEFIT IS TRANSFERRED FROM [facility], PT'S DTR ALSO REPORTS SHE HAS CHANGED HER PCP TO RAMON OSMAN AND PT HAS APPT SET UP FOR 02/02/21, PT'S PRIOR PCP ALANNA KIM [phone]. DTR REPORTS PT HAS A HCP AND COPY HAS BEEN REQUESTED. DTR ALSO REQUESTED A SCRIPT FOR A BEDSIDE COMMODE AND CM HAS REQUESTED THIS FROM HOSPITALIST. D/C PLAN: HOME W/HOME PT, DTR FOR TRANSPORT HCP: LICHA LAMBERT [phone] CM DID RECEIVE CALL FROM WALI VIERA WHILE WRITING THIS NOTE RE HOME PT AND CHANGE OF PCP AND PER LIAISON PT WILL NEED A DIRECT REFERRAL FROM PT'S NEW PCP ONCE ESTABLISHE, CM WILL FOLLOW UP WITH PT'S DTR.
--- NOTE | 2021-01-10 15:40 | P.PNIM_ITS ---
Subjective Subjective Date of Service: 01/10/21 Interval History: The patient was seen and evaluated this morning Laying in bed, looks comfortable overall Denies any fever, chills or shortness of breath Reported decreased oral intake Hemoglobin dropped to 8.5, likely delusional No reported other overnight events Systemic review: No fever, chills but has generalized weakness No chest pain, palpitation No shortness of breath or coughing No abdominal pain, nausea or vomiting No urinary symptoms No any rash or wounds Physical Exam Vital Signs: Vital Signs: Last Vital Signs Temp 97.2 F 01/10/21 15:18 Pulse 74 01/10/21 15:18 Resp 16 01/10/21 15:18 BP 87/60 L 01/10/21 15:18 Pulse Ox 100 01/10/21 15:18 Body Mass Index 12.1 Const: Other: Constitutional : Alert, oriented, not in distress, cachectic looking Neck : Normal inspection, Supple Cardiovascular : RRR, S1 S2, no lower extremity edema Respiratory : Good bilateral air entry, no crackles, wheezes or rhonchi Gastrointestinal: soft, lax, Normal bowel sounds, Non tender Skin : Warm/Dry, stage I pressure ulcer in the coccyx healing Neurological : Alert & oriented x3, No focal deficit Objective Data Current Medications Generic Name Dose Route Start Last Admin Trade Name Freq PRN Reason Stop Dose Admin Acetaminophen 650 mg 01/09/21 03:49 Acetaminophen 325 Mg Tablet PO Q6H PRN Pain, Mild (Pain Scale 1-3) Docusate Sodium 100 mg 01/09/21 03:49 Docusate Sodium 100 Mg Capsule PO DAILY PRN Constipation Ferrous Sulfate 300 mg 01/10/21 20:00 Ferrous Sulfate 300 Mg/5 Ml Liquid PO BIDWM PAR[facility] Ceftriaxone Sodium 1 gm/ 50 mls @ 100 mls/hr 01/09/21 22:00 01/09/21 21:52 Sodium Chloride IV Infused Q24H [facility] Infusion Azithromycin 500 mg/ Sodium 250 mls @ 125 mls/hr 01/09/21 22:00 01/10/21 01:16 Chloride IV Infused Q24H [facility] Infusion Lactated Ringer's 1,000 mls @ 75 mls/hr 01/09/21 06:00 01/10/21 08:24 Lr IVCONT 75 mls/hr .[id number] [facility] Administration Lactated Ringer's 1,000 mls @ 100 mls/hr 01/10/21 14:15 01/10/21 13:00 Lr IVCONT 100 mls/hr .Q10H [facility] Administration Insulin Human Lispro 0 unit 01/09/21 07:30 01/10/21 11:22 Insulin Lispro 100 Unit/Ml 3 Ml Vial SUBCUT Not Given QIDACHS [facility] Protocol Methadone HCl 20 mg 01/11/21 09:00 Methadone Hcl 1 Mg/0.1 Ml Oral.Conc PO DAILY [facility] Morphine Sulfate 2 mg 01/09/21 08:37 Morphine Sulfate 4 Mg/Ml Cartridge IVPUSH Q4H PRN Pain, Severe (Pain Scale 7-10) Ondansetron HCl 4 mg 01/09/21 03:49 Ondansetron Hcl 4 Mg/2 Ml Vial IVPUSH Q8H PRN Nausea and Vomiting Ondansetron HCl 4 mg 01/10/21 14:56 Ondansetron Hcl 4 Mg/2 Ml Vial IVPUSH ONCE PRN Nausea and Vomiting Sodium Chloride 3 ml 01/09/21 08:00 01/10/21 08:26 0.9 % Sodium Chloride Flush 3 Ml Syringe IVFLUSH 3 ml QSHIFT [facility] Administration Labs CBC & Chem 7: 01/10/21 06:37 01/10/21 06:37 Microbiology Microbiology Results: Microbiology 01/08/21 23:45 Blood - Venous Blood Culture - Preliminary No growth after 24 hours. 01/08/21 23:45 Blood - Venous Blood Culture - Preliminary No growth after 24 hours. 01/08/21 00:00 Blood - Venous Blood Culture - Final 01/08/21 00:00 Blood - Venous Blood Culture - Final Assessment and Plan (1) Coffee ground emesis: Status: Acute (2) Lethargic: Status: Acute (3) Pneumonia: Status: Acute (4) Esophageal obstruction: Status: Acute (5) Cachexia: Status: Acute Assessment and Plan: This is a 60-year-old female with past medical history of hypertension diabetes who is brought into the hospital by her daughter with complaints of lethargy. Developed hematemesis in the ED Acute on chronic anemia coffee-ground emesis Hemoglobin dropped to 8.5 from 10, baseline 10.5 or so (only 1 reading found from earlier this month in her 5) esophageal dilatation seen on head and neck CT angiogram EGD done showing multiple gastric ulcers with esophagitis and suspicion of GEJ mass, biopsies taken Likely result of alendronate usage, to discontinue now and at time of discharge and to seek other options To check HIV test for concern of Kaposi's sarcoma by Dr. Felix patient daughter denies any previous similar episodes since she has been staying with her for the past 2 days Check gastrin level Advanced diet Start IV pantoprazole b.i.d. To follow-up with Dr. felix as outpatient to repeat endoscopy in few weeks follow H&H community-acquired pneumonia seen on chest CT afebrile, has leukocytosis Continue IV ceftriaxone azithromycin follow cultures lethargy possibly secondary to infection as well as GI bleed manage both as above PT OT cachexia Moderate protein calorie malnutrition possibly secondary to malignancy Nutritional assessment, diabetes low-dose sliding scale insulin diabetic diet DVT prophylaxis SCDs Dispo, patient might be ready to discharge by tomorrow pending PT evaluation if hemoglobin stable, prefers to go home.
[2021-01-10 16:38] LABS: Glucose, Whole Blood 103 mg/dL (60-115)
[2021-01-10] MEDS: Pantoprazole Sodium 40 MG/10 ML VIAL IVPUSH (16:42)
[2021-01-10 20:04] LABS: Lipase 12 U/L (8-78)
[2021-01-10 20:20] LABS: Gamma Glutamyl Transpeptidase 117 U/L (7-33)
[2021-01-10 20:21] LABS: Glucose, Whole Blood 304 mg/dL (60-115)
[2021-01-10 20:38] LABS: Folate 19.1 ng/mL (> or = 4.0); Vitamin B12 1045 pg/mL (200-900)
[2021-01-10] MEDS: cefTRIAXone sodium 1 GM in 0.9 % Sodium Chloride 50 ML IV (20:57)
[2021-01-10] MEDS: Insulin Lispro 100 UNIT/ML 3 ML VIAL SUBCUT (20:57)
[2021-01-10] MEDS: Ferrous Sulfate 300 MG/5 ML LIQUID PO (20:57)
[2021-01-10] MEDS: Azithromycin 500 MG in 0.9 % Sodium Chloride 250 ML 125 MG IV (21:29)
[2021-01-11] MEDS: Lactated Ringers 1,000 ML 100 ML IVCONT ×2 (00:38→10:18)
[2021-01-11 04:00] VITALS: BP 120/76; PULSE 80; RESP 18; TEMP 36; O2SAT 100
[2021-01-11] MEDS: Pantoprazole Sodium 40 MG/10 ML VIAL IVPUSH (06:04)
[2021-01-11 06:55] LABS: Basophils Percent Auto 0.7 % (0-2); Eosinophils Absolute Auto 0.2 X10*3/uL (0.0-0.4); Eosinophils Percent Auto 3.8 % (0-4); Hematocrit 25.2 % (37-47); Imm Gran Abs Auto 0.02 X10*3/uL (0.00-0.03); Imm Gran Pct Auto 0.4 % (0.0-0.4); Lymphocytes Percent Auto 35.5 % (20-40); MANUAL DIFF FLAG SCAN; Mean Corpuscular HGB Conc 31.7 g/dl (31.0-35.0); Mean Corpuscular Hemoglobin 30.7 pg (27.0-33.0); Mean Corpuscular Volume 96.6 fL (80-98); Mean Platelet Volume 9.4 fL (9.4-12.3); Monocytes Absolute Auto 0.4 X10*3/uL (0.1-1.2); Monocytes Percent Auto 7.3 % (2-11); Neutrophils Absolute Auto 2.9 X10*3/uL (2.0-8.3); Neutrophils Percent Auto 52.3 % (45-73); Platelet Count 390 X10*3/uL (160-400); Red Blood Count 2.61 X10*6/uL (4.20-5.50); Red Cell Distribution Width 13.5 % (11.0-16.0); SCAN SMEAR FLAG 1; White Blood Count 5.5 X10*3/uL (4.8-10.8)
[2021-01-11 07:12] VITALS: BP 133/82; PULSE 81; RESP 17; TEMP 36; O2SAT 100
[2021-01-11 07:27] LABS: SLIDE REVIEW VERIFIED
[2021-01-11 07:48] LABS: Glucose, Whole Blood 140 mg/dL (60-115)
[2021-01-11] MEDS: Ferrous Sulfate 300 MG/5 ML LIQUID PO (08:44)
[2021-01-11 08:50] LABS: HIV AB/AG Nonreactive (Nonreactive); HIV Num 1 0.05 S/CO (0.00-0.99)
[2021-01-11] MEDS: Docusate Sodium 100 MG CAPSULE PO (09:09)
[2021-01-11 11:16] LABS: Glucose, Whole Blood 255 mg/dL (60-115)
[2021-01-11 11:17] VITALS: BP 145/93; PULSE 80; RESP 18; TEMP 36.2; O2SAT 100
[2021-01-11 11:18] VITALS: BMI 12.1
--- NOTE | 2021-01-11 11:25 | MHC.CLN ---
RE: CONSULT PT IS SEVERELY MALNOURISHED PT WITH SEVERELY DEPLETED SUBCUTANEOUS FAT AND MUSCLE MASS, BMI 12. PT'S FAMILY MEMBER REPORTED WT LOSS OVER 1 YEAR, HOWEVER NO SPECIFIC AMOUNT REPORTED. CHRONIC POOR PO INTAKE REPORTED PER PT VIA INTREPRETER DIET RX: 1800DM BLAND-APPROPRIATE RECOMMEND ADDING ENSURE BID TO INCREASE KCALS PT RECEPTIVE TO TRIAL OF SUPPLEMENTS SUPPLEMENT TO PROVIDE 700KCALS, 40G PROTEIN DISCUSSED IMPORTANCE OF NUTRITION AND PO INTAKE WITH FAMILY MEMBER -ENCOURAGE FOODS WITH HIGH BIOLOGICAL VALUE PROTEIN I.E. CHICKEN, TURKEY, BEEF, FISH MONITOR PO INTAKE AND WEIGHT CLOSELY PT MAY BE AT RISK FOR REFEEDING SYNDROME -CHECK MG, PHOS AND K+ SEE ALSO CLINICAL NUTRITION ASSESSMENT
[2021-01-11] MEDS: Insulin Lispro 100 UNIT/ML 3 ML VIAL SUBCUT (11:40)
--- NOTE | 2021-01-11 11:42 | PM.DS ---
DS: Providers Provider Date of Service: 01/11/21 Date of admission: 01/09/21 01:24 Primary care physician: Unknown Physician Consults: 01/09/21 03:49 Consult to Gastroenterology Routine Consulting Provider: Vincent Mcclelland Reason for consultation: coffee ground emesis Has provider been notified: No DS: Diagnosis Discharge Diagnosis (1) Coffee ground emesis: Status: Acute (2) Lethargic: Status: Acute (3) Pneumonia: Status: Acute (4) Esophageal obstruction: Status: Acute (5) Cachexia: Status: Acute (6) Gastric ulcer: Status: Acute (7) Acute blood loss anemia: Status: Acute (8) Malnourished: Status: Acute DS: Medications Discharge Medications Home Medications: Home Medications Medication Instructions Recorded Confirmed Humalog KwikPen Insulin 4 unit SUBCUT TID 01/09/21 01/09/21 ascorbic acid (vitamin C) 500 mg PO DAILY 01/09/21 01/09/21 cholecalciferol (vitamin D3) 25 mcg PO DAILY 01/09/21 01/09/21 ferrous sulfate 325 mg PO Q OTHER DAY 01/09/21 01/09/21 gabapentin 600 mg PO TID 01/09/21 01/09/21 insulin degludec 5 unit SUBCUT BEDTIME 01/09/21 01/09/21 tsihfo-hfwftfok-ygpudol 3 cap PO TIDWM 01/09/21 01/09/21 lisinopril 5 mg PO DAILY 01/09/21 01/09/21 methadone 17 mg PO DAILY 01/09/21 01/09/21 multivitamin with minerals 1 tab PO DAILY 01/09/21 01/09/21 pyridoxine (vitamin B6) 50 mg PO DAILY 01/09/21 01/09/21 thiamine HCl (vitamin B1) 100 mg PO DAILY 01/09/21 01/09/21 Previous Rx's Medication Instructions Recorded azithromycin 250 mg PO DAILY 5 Days #5 tab 01/11/21 omeprazole 40 mg PO BID #60 cap 01/11/21 DS: Summary Hospital Course Hospital Course: Patient was admitted for anorexia in severe protein calorie malnutrition with iron deficiency anemia. she underwent EGD which showed multiple gastric ulcers and possible esophageal mass. Recommendations were to discontinue alendronate and NSAIDs, start on PPI, and follow-up with GI for pathology results As well as gastrin level. HIV was negative. Patient is feeling much better pain is resolved. She is tolerating diet. She will be discharged home on Prilosec 40 mg b.i.d., she will follow up with GI for pathology results and gastrin level. Time Spent with Patient Time attestation: Total time spent providing and/or coordinating discharge services: Discharge coordination time: Greater than 30 minutes Quality: Stroke Does the patient have a stroke diagnosis?: No Physical Exam Vital Signs: Vital Signs: Last Vital Signs Temp 97.2 F 01/11/21 11:17 Pulse 80 01/11/21 11:17 Resp 18 01/11/21 11:17 BP 145/93 H 01/11/21 11:17 Pulse Ox 100 01/11/21 11:17 Body Mass Index 12.1 General: AO X 3, no acute distress, cachexia Resp: diminsihed CVS: S1,S2,RRR GI: soft, non tender, non distended Neuro: motor grossly intact Psych: appropriate affect DS: Data Data Completed and Pending Pending studies at discharge: Pending at discharge 01/10/21 15:00 Surgical [PTH] Routine Labs on day of discharge: Laboratory Results - last 24 hr 01/10/21 01/10/21 01/10/21 14:17 16:35 19:06 WBC RBC Hgb Hct MCV MCH MCHC RDW Plt Count MPV Immature Gran % (Auto) Neut % (Auto) Lymph % (Auto) [place] % (Auto) Eos % (Auto) Baso % (Auto) Lymph # (Auto) [place] # (Auto) Eos # (Auto) Baso # (Auto) Abs Immat Gran (auto) Absolute Neuts (auto) Absolute Nucleated RBC Nucleated RBC % (auto) Smear Tech's Comments POC Glucose 117 H 103 GGT 117 H Lipase Vitamin B12 Folate HIV 1&2 Ab/P24 Ag 4thGn 01/10/21 01/10/21 01/10/21 19:06 19:06 19:06 WBC RBC Hgb Hct MCV MCH MCHC RDW Plt Count MPV Immature Gran % (Auto) Neut % (Auto) Lymph % (Auto) [place] % (Auto) Eos % (Auto) Baso % (Auto) Lymph # (Auto) [place] # (Auto) Eos # (Auto) Baso # (Auto) Abs Immat Gran (auto) Absolute Neuts (auto) Absolute Nucleated RBC Nucleated RBC % (auto) Smear Tech's Comments POC Glucose GGT Lipase 12 Vitamin B12 1045 H Folate 19.1 HIV 1&2 Ab/P24 Ag 4thGn Nonreactive 01/10/21 01/11/21 01/11/21 20:09 06:27 07:09 WBC 5.5 RBC 2.61 L Hgb 8.0 L Hct 25.2 L MCV 96.6 MCH 30.7 MCHC 31.7 RDW 13.5 Plt Count 390 MPV 9.4 Immature Gran % (Auto) 0.4 Neut % (Auto) 52.3 Lymph % (Auto) 35.5 [place] % (Auto) 7.3 Eos % (Auto) 3.8 Baso % (Auto) 0.7 Lymph # (Auto) 2.0 [place] # (Auto) 0.4 Eos # (Auto) 0.2 Baso # (Auto) 0.0 Abs Immat Gran (auto) 0.02 Absolute Neuts (auto) 2.9 Absolute Nucleated RBC 0.000 Nucleated RBC % (auto) 0.0 Smear Tech's Comments VERIFIED POC Glucose 304 H 140 H GGT Lipase Vitamin B12 Folate HIV 1&2 Ab/P24 Ag 4thGn 01/11/21 11:09 WBC RBC Hgb Hct MCV MCH MCHC RDW Plt Count MPV Immature Gran % (Auto) Neut % (Auto) Lymph % (Auto) [place] % (Auto) Eos % (Auto) Baso % (Auto) Lymph # (Auto) [place] # (Auto) Eos # (Auto) Baso # (Auto) Abs Immat Gran (auto) Absolute Neuts (auto) Absolute Nucleated RBC Nucleated RBC % (auto) Smear Tech's Comments POC Glucose 255 H GGT Lipase Vitamin B12 Folate HIV 1&2 Ab/P24 Ag 4thGn Preliminary micro results at discharge 01/08/21 23:45 Blood Culture - Preliminary Blood - Venous No growth after 48 hours. 01/08/21 23:45 Blood Culture - Preliminary Blood - Venous No growth after 48 hours. Discharge Plan Discharge Patient Disposition: Home, Self-Care Discharge Diagnosis: multiple ulcers Referrals: Celina Pacheco MD [Physician] - 1 Week Physician,Unknown [Primary Care Provider] - 1 Week Discharge Medications: New omeprazole 40 mg capsule,delayed release(DR/EC) 40 mg PO BID Qty: 60 RF: 0 azithromycin 250 mg tablet 250 mg PO DAILY 5 Days Qty: 5 RF: 0 (DME) commode Kit See Rx Instructions .ROUTE .MEDSUPPLY Qty: 1 RF: 0 Continued gabapentin 600 mg Tablet 600 mg PO TID RF: 0 thiamine HCl (vitamin B1) 100 mg Tablet 100 mg PO DAILY RF: 0 ascorbic acid (vitamin C) 500 mg Tablet 500 mg PO DAILY RF: 0 ferrous sulfate 325 mg (65 mg iron) Tablet 325 mg PO Q OTHER DAY RF: 0 lisinopril 5 mg Tablet 5 mg PO DAILY RF: 0 pyridoxine (vitamin B6) 100 mg Tablet 50 mg PO DAILY RF: 0 cholecalciferol (vitamin D3) 25 mcg (1,000 unit) Tablet 25 mcg PO DAILY RF: 0 Humalog KwikPen Insulin 200 unit/mL (3 mL) Insulin Pen 4 unit SUBCUT TID RF: 0 insulin degludec 100 unit/mL Solution 5 unit SUBCUT BEDTIME RF: 0 methadone 10 mg/mL Concentrate 17 mg PO DAILY RF: 0 multivitamin with minerals Tablet 1 tab PO DAILY RF: 0 jzeydj-bylvnpfb-xqrmdbz 6,000-19,000 -30,000 unit Capsule,Delayed Release(Dr/Ec) 3 cap PO TIDWM RF: 0 Discontinued diclofenac sodium [Voltaren Arthritis Pain] 1 % Gel 2 g TOPICAL TID PRN (Reason: Pain) RF: 0 alendronate 70 mg Tablet 70 mg PO QWEEK RF: 0 Discharge Orders: Discharge Order (Routine); Ordered 01/11/21 Ordered By: Zachery Mary Diet: advance to usual diet Activity on Discharge: As tolerated Stand Alone Forms: Patient Portal Discharge page Care Plan Goals: heal ulcers Health Concerns: ulcers Plan of Treatment: follow up with gi, prilosec, stop all NSAIDS, alendronate Assessment: see above
--- NOTE | 2021-01-11 12:13 | MHC.CM.PN ---
NURSE SALES COMMUNICATIONS MANAGER NOTE ELECTRONIC MEDICAL RECORD REVIEWED ALONG WITH CASE DISCUSSED WITH STAFF NURSE AND HOSPITALIST , MET WITH PATIENT AND HER DAUGHTER DAYSI LAMBERT HER DAUGHTER TOLD ME THAT SHE RECENLTY HAD MOVED HER MOM TO HER APARTEMENT FROM [place] SECONDARY TO PATIENT S DECLINE IN HEALTH , SHE IS TRYING TO SECURE PAPERWORK FROM [facility]. TO TRANSFER TO THIS AREA , PATIENT HAS OBTAINED A PCP HERE IN [place] KATHE MEJIA BUT DOES NOT HAVE APPOINTMENT WITH PCP UNTIL 2020 DISCHARGE PLAN HOME WITH HER DAUGHTER DAYSI REFERRAL TO THE [facility] FOR ASSISTANCE PCP DR KATHE MEJIA FEBRUARY 02 2021 INITIAL REFERRAL SENT TO THE [facility] -INFORMED THEM OF THE D/C AND F/U APPOINTMENT DITH PCP ONCE PATIENT HAS BEEN CONFIRMED TO HAVE SEEN PCP THEY CAN START PATIENT AND DAUGHTER REMINDED THIS AGAIN [facility] ALL PAPERWORK COMPLETED
--- NOTE | 2021-01-11 14:21 | HO.POSTANES ---
Post Anesthesia Evaluation Post Anesthesia Evaluation Vital Signs: Vital Signs Temp Pulse Resp BP Pulse Ox 01/11/21 11:17 97.2 F 80 18 145/93 H 100 01/11/21 07:12 96.8 F 81 17 133/82 100 01/11/21 04:00 96.8 F 80 18 120/76 100 Anesthesia: Monitored Mental Status: Awake Pain Control: Satisfactory Nausea/Vomiting: None Hydration: Adequate Anesthesia-Related Issues: No Anes. Related Issues
[2021-01-12 13:32] LABS: Carbohydrate Antigen 19-9 3 U/mL (<34)
[2021-01-14 18:36] LABS: Gastrin 60 pg/mL (<=100)
== END 2021-01-11 14:42 | disposition home or self-care (01) | DRG 241 ==
LOC: HO.ED 01-09 01:03 → HO.EDOVER 01-09 02:18 → HO.S3 01-09 07:53
PROVIDERS: Internal Medicine Gastroenterology; Physician Assistant; Student in an Organized Health Care Education/Training Program; Admitting Provider Internal Medicine; Emergency Provider Emergency Medicine; Visit Provider Internal Medicine
PROC: 0DJ08ZZ Inspection of Upper Intestinal Tract, Via Natural or Artificial Opening Endoscopic (ICD-10-PCS; CPT 43235; principal; 2021-01-10 14:30)
DX: K25.4 Chronic or unspecified gastric ulcer with hemorrhage (principal); E43 Unspecified severe protein-calorie malnutrition; J18.9 Pneumonia, unspecified organism; K22.2 Esophageal obstruction; F11.20 Opioid dependence, uncomplicated; K86.1 Other chronic pancreatitis; D62 Acute posthemorrhagic anemia; E11.9 Type 2 diabetes mellitus without complications; F17.210 Nicotine dependence, cigarettes, uncomplicated; R29.700 NIHSS score 0; K20.91 Esophagitis, unspecified with bleeding; T45.8X5A Adverse effect of other primarily systemic and hematological agents, initial encounter; Y92.9 Unspecified place or not applicable; Z20.822 Contact with and (suspected) exposure to COVID-19; Z68.1 Body mass index [BMI] 19.9 or less, adult; Z71.6 Tobacco abuse counseling; Z79.4 Long term (current) use of insulin; Z79.899 Other long term (current) drug therapy
CPT/HCPCS: 43239; 36415; 70450; 70496; 70498; 71045; 71250; 74176; 80048; 80053; 80076; 81001; 82248; 82378; 82550; 82607; 82728; 82746; 82941; 82947; 82977; 83540; 83605; 83690; 84484; 85025; 85610; 85730; 86301; 86850; 86900; 86901; 87040; 87389; 87635; 88305; 88342; 93005; 97162; 99218; 99285; J0456; J0696; J2405; Q9967

== ENCOUNTER 2021-02-04 09:23 | Outpatient (REF) | payer OTHER, SELFPAY ==
--- NOTE | ~2021-02-04 | XR_ITS ---
EXAMINATION: XR CHEST CLINICAL INFORMATION: Pneumonia COMPARISON: None TECHNIQUE: 2 views of the chest were obtained. FINDINGS: No significant abnormality is noted involving the heart, lungs, mediastinum, bony thorax or soft tissues. XR/XR chest 2V IMPRESSION: Unremarkable examination.
[2021-02-04 11:03] LABS: MANUAL DIFF FLAG NO
[2021-02-04 11:06] LABS: Basophils Absolute Auto 0.1 X10*3/uL (0.0-0.2); Basophils Percent Auto 0.6 % (0-2); Eosinophils Absolute Auto 0.1 X10*3/uL (0.0-0.4); Hematocrit 38.7 % (37-47); Hemoglobin 12.2 g/dl (12.0-16.0); Imm Gran Abs Auto 0.03 X10*3/uL (0.00-0.03); Imm Gran Pct Auto 0.4 % (0.0-0.4); Lymphocytes Absolute Auto 1.2 X10*3/uL (1.2-4.9); Lymphocytes Percent Auto 14.6 % (20-40); Mean Corpuscular HGB Conc 31.5 g/dl (31.0-35.0); Mean Corpuscular Hemoglobin 30.8 pg (27.0-33.0); Mean Corpuscular Volume 97.7 fL (80-98); Monocytes Absolute Auto 0.5 X10*3/uL (0.1-1.2); Monocytes Percent Auto 6.8 % (2-11); Neutrophils Absolute Auto 6.1 X10*3/uL (2.0-8.3); Neutrophils Percent Auto 76.6 % (45-73); Platelet Count 290 X10*3/uL (160-400); Red Blood Count 3.96 X10*6/uL (4.20-5.50); Red Cell Distribution Width 15.5 % (11.0-16.0)
[2021-02-04 11:50] LABS: Cholesterol 165 mg/dL; HDL Cholesterol 67 mg/dL; Iron 64 mcg/dL (30-160); LDL Cholesterol Calculated 56 mg/dl; Percent Iron Saturation 19 % (15-50); Total Iron Binding Capacity 331 mcg/dL (228-428); Triglycerides 214 mg/dL; Unsaturated Iron Binding 267 ug/dL
[2021-02-04 11:55] LABS: Thyroid Stimulating Hormone 0.35 uIU/mL (0.32-4.0)
[2021-02-06 08:27] LABS: Folate > 20.0 ng/mL (> or = 4.0); Vitamin B12 > 2000 pg/mL (200-900)
[2021-02-08 11:22] LABS: Vitamin B1 344 nmol/L (8-30)
[2021-02-09 20:12] LABS: Vitamin D 25-OH, D2 <4 ng/mL; Vitamin D 25-OH, D3 33 ng/mL; Vitamin D 25-OH, Total 33 ng/mL (30-100)
== END 2021-02-04 09:24 | disposition home or self-care (01) ==
LOC: HO.LAB 09:23
PROVIDERS: PCP Internal Medicine; Visit Provider Internal Medicine
DX: J18.9 Pneumonia, unspecified organism (principal); E51.9 Thiamine deficiency, unspecified; D64.9 Anemia, unspecified; R64 Cachexia; E55.9 Vitamin D deficiency, unspecified; E78.5 Hyperlipidemia, unspecified
CPT/HCPCS: 36415; 71046; 80061; 82306; 82607; 82746; 83540; 84425; 84443; 85025

== ENCOUNTER → 2021-03-16 09:57 | Outpatient (BNVA) | payer OTHER, SELFPAY | PROVIDERS: PCP Internal Medicine; Referring Provider Internal Medicine; Visit Provider Internal Medicine Gastroenterology | DX: K86.1 Other chronic pancreatitis (principal); K25.9 Gastric ulcer, unspecified as acute or chronic, without hemorrhage or perforation; D50.9 Iron deficiency anemia, unspecified; E46 Unspecified protein-calorie malnutrition | CPT/HCPCS: 99212 ==

== ENCOUNTER 2021-03-21 07:16 | Day surgery (SDC) | payer OTHER, SELFPAY ==
--- NOTE | 2021-03-20 09:43 | P.CONAN_ITS ---
Documented by User: Bri Oneill NP 03/20/21 09:47 HPI - Anesthesia Eval Consult details Narrative: 60yo F for ?Upper Endoscopy Last EGD 01/2021 with MAC during C admit for ?severe malnutrition, cachexia presenting with anemia secondary to hematemesis.? This is secondary to upper GI bleed, gastric ulcerations which were all benign.? Methadone daily PMFSH Active Problems Active Problems: All Active Problems (Updated 03/16/21 @ 17:58 by Celina Pacheco MD) Malnutrition (Acute) Lethargic (Acute) Pneumonia (Acute) Esophageal obstruction (Acute) Coffee ground emesis (Acute) Cachexia (Acute) Chronic pancreatitis (Acute) Elevated alkaline phosphatase level (Acute) Gastric ulcer (Acute) Acute blood loss anemia (Acute) Iron deficiency anemia (Acute) Urge urinary incontinence (Acute) Thiamine deficiency (Acute) Mild emphysema (Acute) Hypertension (Acute) Diabetes (Acute) Anemia (Acute) Methadone dependence (Acute) Past Medical History Medical History Anemia Diabetes Hypertension Methadone dependence Mild emphysema Thiamine deficiency Urge urinary incontinence Family History Family History Father Throat cancer Mother No problems noted. Family history of problems with anesthesia: No Surgical History Surgical History History of esophagogastroduodenoscopy (EGD) History of Problems with Anesthesia: No Social History Social History Household Members: Children Household Members Other:: Daughter Housing: Apartment Housing Other:: [facility] Do you presently have visiting nurse or other home services: No Alcohol intake: former Year quit: 2019 Patient Tobacco Use Status: Current everyday Tobacco user Tobacco use type: Cigarette e-Cigarette/Vaping Use: Never Used Second Hand Smoke Exposure: Yes Substance Use Type: Heroin and Marijuana Advance Directives: No Advance Directives Information Provided: Yes service: No Current occupational status: disabled Meds Allergies Allergy/AdvReac Type Severity Reaction Status Date / Time No Known Allergies Allergy Verified 02/02/21 08:03 Home Medications Medication Instructions Recorded Confirmed Last Taken Type cholecalciferol (vitamin D3) 25 25 mcg PO DAILY 01/09/21 03/16/21 Unknown History mcg (1,000 unit) tablet gabapentin 600 mg tablet 600 mg PO TID 01/09/21 03/16/21 Unknown History insulin degludec 100 unit/mL 8 unit SUBCUT BEDTIME 01/09/21 03/16/21 Unknown History subcutaneous solution insulin lispro 200 unit/mL (3 mL) 4 unit SUBCUT TID 01/09/21 03/16/21 Unknown History subcutaneous pen (Humalog KwikPen U-200 Insulin) lisinopril 5 mg tablet 5 mg PO DAILY 01/09/21 03/16/21 Unknown History methadone 10 mg/mL oral concentrate 17 mg PO DAILY 01/09/21 03/16/21 Unknown History multivitamin with minerals 1 tab PO DAILY 01/09/21 03/16/21 Unknown History pyridoxine (vitamin B6) 100 mg 50 mg PO DAILY 01/09/21 03/16/21 Unknown History tablet thiamine HCl (vitamin B1) 100 mg 100 mg PO DAILY 01/09/21 03/16/21 Unknown History tablet Exam Exam Date and Time: March 20, 2021 0943 Pertinent Lab Results Pertinent Lab Results: Laboratory Tests 01/10/21 02/17/21 06:37 14:05 WBC 8.2 Hgb 11.4 L Hct 35.5 L Plt Count 252 Sodium 136 Potassium 4.6 Chloride 102 Carbon Dioxide 29 BUN 15 Creatinine 0.55 Narrative Narrative: EKG 01/2021 Vent. Rate : 092 BPM ? ? Atrial Rate : 092 BPM ?? P-R Int : 136 ms? QRS Dur : 070 ms ? ? QT Int : 366 ms ? ? ? P-R-T Axes : 087 080 088 degrees ?? QTc Int : 452 ms ? Normal sinus rhythm Septal infarct , age undetermined Abnormal ECG No previous ECGs available Assessment and Plan Assessment Anesthesia Assessment: Chart Reviewed Final Anesthetic Review Family History of Problems with Anesthesia: No History of Problems with Anesthesia: No Documented by User: Tara Palm MD 03/21/21 07:46 [facility] Past Medical History Medical History Anemia Diabetes Hypertension Methadone dependence Mild emphysema Thiamine deficiency Urge urinary incontinence Patient : No Family History Family History Father Throat cancer Mother No problems noted. Surgical History Surgical History History of esophagogastroduodenoscopy (EGD) Social History Social History Household Members: Children Household Members Other:: Daughter Housing: Apartment Housing Other:: [facility] Do you presently have visiting nurse or other home services: No Alcohol intake: former Year quit: 2019 Patient Tobacco Use Status: Current everyday Tobacco user Tobacco use type: Cigarette e-Cigarette/Vaping Use: Never Used Second Hand Smoke Exposure: Yes Substance Use Type: Heroin and Marijuana Advance Directives: No Advance Directives Information Provided: Yes service: No Current occupational status: disabled Meds Allergies Allergy/AdvReac Type Severity Reaction Status Date / Time No Known Allergies Allergy Verified 02/02/21 08:03 Home Medications Medication Instructions Recorded Confirmed Last Taken Type cholecalciferol (vitamin D3) 25 25 mcg PO DAILY 01/09/21 03/16/21 Unknown History mcg (1,000 unit) tablet gabapentin 600 mg tablet 600 mg PO TID 01/09/21 03/16/21 Unknown History insulin degludec 100 unit/mL 8 unit SUBCUT BEDTIME 01/09/21 03/16/21 Unknown History subcutaneous solution insulin lispro 200 unit/mL (3 mL) 4 unit SUBCUT TID 01/09/21 03/16/21 Unknown History subcutaneous pen (Humalog KwikPen U-200 Insulin) lisinopril 5 mg tablet 5 mg PO DAILY 01/09/21 03/16/21 Unknown History methadone 10 mg/mL oral concentrate 17 mg PO DAILY 01/09/21 03/16/21 Unknown History multivitamin with minerals 1 tab PO DAILY 01/09/21 03/16/21 Unknown History pyridoxine (vitamin B6) 100 mg 50 mg PO DAILY 01/09/21 03/16/21 Unknown History tablet thiamine HCl (vitamin B1) 100 mg 100 mg PO DAILY 01/09/21 03/16/21 Unknown History tablet Exam Airway Mallampati Class: II TM Dist: >3cm Neck ROM: Full Heart: RRR Lungs: CTA
--- NOTE | 2021-03-21 07:31 | P.BOP_ITS ---
Brief Operative Note Date of Service: 03/21/21 Pre-op diagnosis: Follow-up of gastric and duodenal ulcers Procedure: FLEXIBLE TRANSORAL UPPER GASTROINTESTINAL ENDOSCOPY Consent: Indications for the procedure and potential complications of bleeding, perforation, reaction to medications and missed diagnosis were discussed with the patient and informed consent was obtained. Instrument: Olympus GIF H 190 mid size upper endoscope Monitoring: Vital signs and clinical assessment, continuous EKG monitoring, Pulse oximetry, Carbon Dioxide monitoring and blood pressure monitoring were done throughout the procedure. Procedure: The patient was placed in the left lateral decubitis position and pre-procedure medications were administered and a bite block was placed. The endoscope was inserted into the mouth and advanced under direct vision to the third part of duodenum. A careful inspection was made as the upper endoscope was withdrawn including a retroflexed examination of the proximal stomach; Findings and interventions are described below. Findings: Larynx: Esophagus: GE junction at []. No esophagitis or Barlow Stomach: Mild gastric erythema. Biopsies were obtained. Grade 2 flap valve on retroflexed examination of the cardia. Duodenum: Normal bulb and descending duodenum Intervention: Biopsies as noted above Impression and Post Procedure Diagnosis: Endoscopy Findings: LARYNX: [] ESOPHAGUS: [] STOMACH: [] DUODENUM: [] Plan: Await pathology results Patient has an appointment on 05/08/21 in the GI Clinic with Shiva Valiente . Above findings were reviewed with the patient and [GERD] and [Gastritis] handouts were given in the discharge area Surgeon: Celina Pahceco MD Was an Bleach Packer used for this Procedure?: No
--- NOTE | 2021-03-21 07:31 | MHC.SHP ---
Pre-Procedural Eval Section A Date of Service: 03/21/21 The patient is an INPATIENT: No Changes since office visit: Yes New Medical Problems; No Cold of Flu in the past 2 weeks The History & Physical has been completed within 30 days and I have reviewed it.: Yes Section B Chief Complaint: gastric ulcer Details of Present Illness: Patient' POC glucose elevated at 497. Pt transferred to the ED for control of blood glucose. EGD will be rescheduled. Allergies: Allergies Allergy/AdvReac Type Severity Reaction Status Date / Time No Known Allergies Allergy Verified 02/02/21 08:03 Plan Diagnosis/Plan: Change (Patient' POC glucose elevated at 497. Pt transferred to the ED for control of blood glucose. EGD will be rescheduled.) I have reviewed the history and physical and performed a pertinent physical examination on my patient. No changes have occurred unless specified.
--- NOTE | 2021-03-21 07:32 | W.PM.OPN ---
Operative Note Operative Note Date of Service: 03/21/21
[2021-03-21 07:34] VITALS: BP 149/106; PULSE 89; RESP 18; TEMP 36.1; O2SAT 100; BMI 12.6
[2021-03-21 07:57] LABS: Glucose, Whole Blood 497 mg/dL (60-115)
--- NOTE | 2021-03-21 08:21 | PC.NURSE ---
pt POC 497. Dr. Pacheco and Dr. Tate notified. Pt to receive 14units of Lispro and LR IV 1000ml bolus per Dr. Tate and to be monitored for 1hr. POC to be rechecked after 1hr. pt unable to be transfered to ER per framing machine tender Mike Burciaga.
[2021-03-21] MEDS: Insulin Lispro 100 UNIT/ML 3 ML VIAL 14 UNIT SUBCUT (08:27)
[2021-03-21] MEDS: Lactated Ringers 1,000 ML 100 ML IVCONT (08:27)
[2021-03-21 08:54] LABS: MANUAL DIFF FLAG NO
[2021-03-21 09:02] LABS: Basophils Percent Auto 0.5 % (0-2); Eosinophils Absolute Auto 0.1 X10*3/uL (0.0-0.4); Eosinophils Percent Auto 0.7 % (0-4); Hematocrit 37.5 % (37-47); Hemoglobin 12.3 g/dl (12.0-16.0); Imm Gran Abs Auto 0.05 X10*3/uL (0.00-0.03); Imm Gran Pct Auto 0.6 % (0.0-0.4); Lymphocytes Absolute Auto 1.8 X10*3/uL (1.2-4.9); Lymphocytes Percent Auto 21.3 % (20-40); Mean Corpuscular HGB Conc 32.8 g/dl (31.0-35.0); Mean Corpuscular Hemoglobin 30.2 pg (27.0-33.0); Mean Corpuscular Volume 92.1 fL (80-98); Mean Platelet Volume 10.6 fL (9.4-12.3); Monocytes Absolute Auto 0.5 X10*3/uL (0.1-1.2); Monocytes Percent Auto 5.4 % (2-11); Neutrophils Absolute Auto 6.1 X10*3/uL (2.0-8.3); Neutrophils Percent Auto 71.5 % (45-73); Platelet Count 220 X10*3/uL (160-400); Red Blood Count 4.07 X10*6/uL (4.20-5.50); Red Cell Distribution Width 14.9 % (11.0-16.0); White Blood Count 8.5 X10*3/uL (4.8-10.8)
[2021-03-21 09:02] LABS: Glucose, Whole Blood 418 mg/dL (60-115)
--- NOTE | 2021-03-21 09:02 | PC.NURSE ---
pt POC 418. pt denies any symptoms of dizziness, weakness, n/v, or sob at this time. dtr at bedside. will continue to monitor and recheck poc in 30min.
[2021-03-21 09:25] LABS: Alanine Aminotransferase 18 U/L (0-31); Albumin Level 3.6 g/dL (3.5-5.0); Alkaline Phosphatase 114 U/L (39-117); Anion Gap 12 (12-20); Aspartate Amino Transferase 14 U/L (5-31); Bilirubin Total 0.4 mg/dL (0.0-1.0); Blood Urea Nitrogen 16 mg/dL (9-16); Calcium 9.7 mg/dL (8.4-10.2); Carbon Dioxide 31 mmol/L (22-29); Chloride 96 mmol/L (96-108); Creatinine Clr Calc Pharmacy 29.1; Estimated Glomerular Filt Rate 54; Glucose Fasting 496 mg/dL (60-99); Osmolality, Serum 306 mosm/kg (281-305); Potassium 4.7 mmol/L (3.3-5.1); Sodium 134 mmol/L (135-145); Total Protein 6.7 g/dL (6.5-8.0)
[2021-03-21 09:31] LABS: Acetone, serum QL Negative (Negative)
[2021-03-21 10:25] LABS: Glucose, Whole Blood 247 mg/dL (60-115)
--- NOTE | 2021-03-21 10:25 | PC.NURSE ---
Addendum entered by Kamila Sanchez RN 03/21/21 10:28: pt denies dizziness at this time. pt ambulated to the bathroom with assist. pt states I can tell my sugar is normal now . pt NSR on tele monitor. will continue to monitor. Original Note: pt POC [address] Tate notified. Procedure to continue as planned.
--- NOTE | 2021-03-21 10:39 | MHC.SHP ---
Pre-Procedural Eval Section A Date of Service: 03/21/21 The patient is an INPATIENT: No Changes since office visit: Yes Patient answered all questions; No Cold of Flu in the past 2 weeks, No New Medical Problems and No Changes in Medication The History & Physical has been completed within 30 days and I have reviewed it.: Yes Section B Chief Complaint: gastric ulcer Allergies: Allergies Allergy/AdvReac Type Severity Reaction Status Date / Time No Known Allergies Allergy Verified 02/02/21 08:03 Plan I have reviewed the history and physical and performed a pertinent physical examination on my patient. No changes have occurred unless specified.
--- NOTE | 2021-03-21 10:58 | P.BOP_ITS ---
Brief Operative Note Date of Service: 03/21/21 Pre-op diagnosis: Fu of gastric ulcers Post-op diagnosis: other (Gastritis, healed gastric ulcers) Procedure: FLEXIBLE TRANSORAL UPPER GASTROINTESTINAL ENDOSCOPY WITH BIOPSIES Consent: Indications for the procedure and potential complications of bleeding, perforation, reaction to medications and missed diagnosis were discussed with the patient and informed consent was obtained. Instrument: Olympus GIF H 190 mid size upper endoscope Monitoring: Vital signs and clinical assessment, continuous EKG monitoring, Pulse oximetry, Carbon Dioxide monitoring and blood pressure monitoring were done throughout the procedure. Procedure: The patient was placed in the left lateral decubitis position and pre-procedure medications were administered and a bite block was placed. The endoscope was inserted into the mouth and advanced under direct vision to the third part of duodenum. A careful inspection was made as the upper endoscope was withdrawn including a retroflexed examination of the proximal stomach; Findings and interventions are described below. Findings: Larynx: Normal Esophagus: GE junction at 36 cms. Erosive esophagistis with two 1.5 cms linear erosions at GE junction. Stomach: Moderate gastric erythema with erosions at site of previous ulcers. Biopsies were obtained. A few 1 cms nodules with central eroison - site of past ulcers. Grade 2 flap valve on retroflexed examination of the cardia. Duodenum: Normal bulb and descending duodenum Intervention: Biopsies as noted above Impression and Post Procedure Diagnosis: Endoscopy Findings: ESOPHAGUS: Erosive esophagistis with two 1.5 cms linear erosions at GE junctiont STOMACH: Moderate gastric erythema with erosions at site of previous ulcers. Multiple gastric ulcers seen on past EGD healed. Biopsies were obtained. A few 1 cms nodules with central eroison - site of past ulcers. Plan: Await pathology results Patient has an appointment on 05/08/21 in the GI Clinic with Celina Pacheco M.D.- . Above findings were reviewed with the patient and her daughter. Surgeon: Celina Pacheco MD Was an Nurse Informaticist used for this Procedure?: Yes Nurse Informaticist: Tarah Leon Estimated blood loss (mL): 0 Pathology: other (A. Gastric antrum) Condition: stable Disposition: PACU
[2021-03-21 11:15] VITALS: BP 124/71; PULSE 70; RESP 16; TEMP 36.3; O2SAT 99
[2021-03-21 11:29] VITALS: BP 106/67; PULSE 69; RESP 16; TEMP 36.4; O2SAT 100
[2021-03-21 11:46] VITALS: BP 125/78; PULSE 72; RESP 19; TEMP 36.1; O2SAT 98
[2021-03-21 11:55] LABS: Glucose, Whole Blood 211 mg/dL (60-115)
--- NOTE | 2021-03-21 12:17 | PC.NURSE ---
patient having her potassium drawn.
--- NOTE | 2021-03-21 12:36 | PC.NURSE ---
patients potassium remains pending
[2021-03-21 12:48] LABS: Potassium 3.7 mmol/L (3.3-5.1)
--- NOTE | 2021-03-21 12:55 | PC.NURSE ---
md felix aware of patients potassium of 3.7
--- NOTE | 2021-03-21 13:03 | PC.NURSE ---
ok to discharge home per md jamison aware of potassium 3.7
--- NOTE | 2021-03-28 18:42 | P.OP_ITS ---
Operative Note Operative Note Date of Service: 03/21/21 Narrative: Pre-op diagnosis:?Fu of gastric ulcers Post-op diagnosis:?other (Gastritis, healed gastric ulcers) Procedure:? FLEXIBLE TRANSORAL UPPER GASTROINTESTINAL ENDOSCOPY WITH BIOPSIES Consent:?Indications for the procedure and potential complications of bleeding, perforation, reaction to medications and missed diagnosis were discussed with the patient and informed consent was obtained. Instrument:?Olympus GIF H 190 mid size upper endoscope Monitoring: Vital signs and clinical assessment, continuous EKG monitoring, Pulse oximetry, Carbon Dioxide monitoring and blood pressure monitoring were done throughout the procedure. Procedure:?The patient was placed in the left lateral decubitis position and pre-procedure medications were administered and a bite block was placed. The endoscope was inserted into the mouth and advanced under direct vision to the third part of duodenum. A careful inspection was made as the upper endoscope was withdrawn including a retroflexed examination of the proximal stomach; Findings and interventions are described below. Findings: Larynx:? Normal Esophagus:?GE junction at 36 cms.? Erosive esophagistis with two 1.5 cms linear erosions at GE junction. Stomach:?Moderate gastric erythema with erosions at site of previous ulcers. Biopsies were obtained. A few 1 cms nodules with central eroison - site of past ulcers. Grade 2 flap valve on retroflexed examination of the cardia. Duodenum:?Normal bulb and descending duodenum Intervention:?Biopsies as noted above Impression and Post Procedure Diagnosis: Endoscopy Findings: ESOPHAGUS: Erosive esophagistis with two 1.5 cms linear erosions at GE junctiont STOMACH:? Moderate gastric erythema with erosions at site of previous ulcers. Multiple gastric ulcers seen on past EGD healed. Biopsies were obtained. A few 1 cms nodules with central eroison - site of past ulcers. Plan: Await pathology results Patient has an appointment on 05/08/21 in the GI Clinic with Celina Pacheco M.D.- . Above findings were reviewed with the patient and her daughter. Surgeon:?Celina Pacheco MD Was an Principle Industrial Hygienist used for this Procedure?:?Yes Principle Industrial Hygienist:?Tarah Loen Estimated blood loss (mL):?0 Pathology:?other (A.? Gastric antrum) Condition:?stable Disposition:?PACU
== END 2021-03-21 13:25 ==
LOC: HO.SSS 07:17
PROVIDERS: PCP Internal Medicine; Visit Provider Internal Medicine Gastroenterology
PROC: 0DJ08ZZ Inspection of Upper Intestinal Tract, Via Natural or Artificial Opening Endoscopic (ICD-10-PCS; CPT 43235; principal; 2021-03-21 08:20)
DX: K25.9 Gastric ulcer, unspecified as acute or chronic, without hemorrhage or perforation (principal); K29.50 Unspecified chronic gastritis without bleeding; K21.9 Gastro-esophageal reflux disease without esophagitis; K20.80 Other esophagitis without bleeding; Z86.59 Personal history of other mental and behavioral disorders; J43.9 Emphysema, unspecified; D64.9 Anemia, unspecified; E51.9 Thiamine deficiency, unspecified; E11.9 Type 2 diabetes mellitus without complications; I10 Essential (primary) hypertension; Z79.4 Long term (current) use of insulin; Z79.899 Other long term (current) drug therapy; F11.20 Opioid dependence, uncomplicated; F17.210 Nicotine dependence, cigarettes, uncomplicated
CPT/HCPCS: 43239; 36415; 80053; 82009; 82947; 83930; 84132; 85025; 88305; 88342; J3010

== ENCOUNTER → 2021-05-08 10:00 | Outpatient (BNVA) | payer OTHER, SELFPAY | PROVIDERS: PCP Internal Medicine; Referring Provider Internal Medicine; Visit Provider Internal Medicine Gastroenterology | DX: K22.2 Esophageal obstruction (principal); K86.1 Other chronic pancreatitis; K25.9 Gastric ulcer, unspecified as acute or chronic, without hemorrhage or perforation; E46 Unspecified protein-calorie malnutrition; R13.10 Dysphagia, unspecified | CPT/HCPCS: 99212 ==

== ENCOUNTER 2021-06-25 18:20 | Emergency (ER) | payer OTHER, SELFPAY ==
[2021-06-25 18:34] VITALS: BP 132/95; PULSE 83; RESP 18; TEMP 36.6; O2SAT 92; BMI 15.0
[2021-06-25 18:54] LABS: Glucose, Whole Blood 246 mg/dL (60-115)
--- NOTE | 2021-06-25 19:23 | PC.NURSE ---
CALLED FOR BED ASSIGNMENT X2 NO RESPONSE
--- NOTE | 2021-06-25 20:56 | ECG_ITS ---
Test Reason : GENERAL MEDICAL Blood Pressure : / mmHG Vent. Rate : 067 BPM Atrial Rate : 067 BPM P-R Int : 150 ms QRS Dur : 078 ms QT Int : 448 ms P-R-T Axes : 078 073 082 degrees QTc Int : 473 ms Normal sinus rhythm Septal infarct (cited on or before 08-JAN-2021) Abnormal ECG When compared with ECG of 08-JAN-2021 19:57, No significant change was found Referred By: Hina Olivier Electronically Signed By:SUMAYA WILLOUGHBY MD
[2021-06-25 21:31] LABS: MANUAL DIFF FLAG NO
[2021-06-25 21:36] LABS: Basophils Percent Auto 0.3 % (0-2); Eosinophils Percent Auto 0.2 % (0-4); Hematocrit 33.7 % (37.0-47.0); Hemoglobin 11.1 g/dl (12.0-16.0); Imm Gran Abs Auto 0.01 X10*3/uL (0.00-0.03); Imm Gran Pct Auto 0.1 % (0.0-0.4); Lymphocytes Absolute Auto 1.2 X10*3/uL (1.2-4.9); Mean Corpuscular HGB Conc 32.9 g/dl (31.0-35.0); Mean Corpuscular Hemoglobin 32.9 pg (27.0-33.0); Mean Platelet Volume 10.2 fL (9.4-12.3); Monocytes Absolute Auto 0.5 X10*3/uL (0.1-1.2); Monocytes Percent Auto 5.3 % (2-11); Neutrophils Percent Auto 80.1 % (45-73); Platelet Count 250 X10*3/uL (160-400); Red Blood Count 3.37 X10*6/uL (4.20-5.50); Red Cell Distribution Width 14.4 % (11.0-16.0); White Blood Count 8.7 X10*3/uL (4.8-10.8)
[2021-06-25 21:46] LABS: Lactic Acid 0.8 mmol/L (0.5-2.0)
--- NOTE | 2021-06-25 21:49 | ED.GENADULT ---
HPI - General Adult General Chief complaint: Altered Mental Status Stated complaint: confusion Time Seen by Provider: 06/25/21 20:55 Source: patient Mode of arrival: wheelchair Limitations: no limitations History of Present Illness HPI narrative: Patient is brought to the emergency room by her daughter. Patient states that she has been feeling extremely tired, sleepy for the last 2 days. Patient also states that she has been having diarrhea, no vomiting, no abdominal pain. Patient denies any fever chest pain or shortness of breath. Patient states that she has not been hungry for 2 days. Patient states that usually she is able to walk unassisted, but for the last 2 days she has been unable to get up by herself. Per patient's medical records, patient was hospitalized on 01/11/2021 for cachexia, patient was diagnosed with iron deficiency anemia the patient had an EGD which showed multiple gastric ulcers with possible esophageal mass. On May 08, patient had a GI consult, patient had a 2nd EGD which showed healed ulcers. Patient still needs to get a barium swallow evaluation. Related Data Home Medications Medication Instructions Recorded Confirmed cholecalciferol (vitamin D3) 25 25 mcg PO DAILY 01/09/21 06/26/21 mcg (1,000 unit) tablet gabapentin 600 mg tablet 600 mg PO TID 01/09/21 06/26/21 insulin degludec 100 unit/mL 8 unit SUBCUT BEDTIME 01/09/21 06/26/21 subcutaneous solution insulin lispro 200 unit/mL (3 mL) 4 unit SUBCUT TID 01/09/21 06/26/21 subcutaneous pen (Humalog KwikPen U-200 Insulin) lisinopril 5 mg tablet 5 mg PO DAILY 01/09/21 06/26/21 multivitamin with minerals 1 tab PO DAILY 01/09/21 06/26/21 thiamine HCl (vitamin B1) 100 mg 100 mg PO DAILY 01/09/21 06/26/21 tablet Previous Rx's Medication Instructions Recorded commode #1 ea 01/11/21 adult diapers briefs #120 ea 02/10/21 [id number] 3 cap PO TID 30 Days #270 cap 04/03/21 6,000-19,000-30,000 unit capsule,delayed rel (Creon) ascorbic acid (vitamin C) 500 mg 500 mg PO DAILY #30 tab 05/01/21 tablet (Vitamin C) pyridoxine (vitamin B6) 100 mg 50 mg PO DAILY #30 tab 05/01/21 tablet acetaminophen 325 mg tablet 650 mg PO Q6H PRN #120 tab 05/15/21 omeprazole 20 mg capsule,delayed 20 mg PO BID 30 Days #60 cap 05/15/21 release ferrous sulfate 325 mg (65 mg 325 mg PO Q OTHER DAY 30 Days #15 05/24/21 iron) tablet tab Allergies Allergy/AdvReac Type Severity Reaction Status Date / Time No Known Allergies Allergy Verified 06/25/21 18:34 Review of Systems Review of Systems: Constitutional : No Weight loss, No Fever, No Chills, No Night Sweats, complaining of fatigue ENT/Mouth : No Hearing loss, No Ear Pain, No Nasal Congestion, No Sinus Pain, No Hoarseness, No sore throat, No Rhinorrhea, No Swallowing Difficulty Eyes: No Eye Pain, No Swelling, No Redness, No Foreign Body, No Discharge, No Vision Changes Cardiovascular : No Chest Pain, No SOB, No Dyspnea on Exertion, No Orthopnea, No Edema, No Palpitations Respiratory : No Cough, No Sputum, No Wheezing, No Smoke Exposure, No Dyspnea Gastrointestinal : No Nausea, No Vomiting, No Diarrhea, No Constipation, No abdominal Pain, No Hematochezia, No Melena, complaining of not being hungry Genitourinary : no irregular bleeding, No Dysuria, No Urinary Frequency, No Hematuria, No Urinary Incontinence, No Urgency, No Flank Pain, No Urinary Flow Changes, No Hesitancy Musculoskeletal : No joint pain, No Myalgias, No Joint Swelling Skin : No Skin Lesions, No rash Neuro : No Weakness, No Numbness, No Paresthesias, No Loss of Consciousness, No Dizziness, No Headache Psych : No Anxiety/Panic, No Depression, No SI/HI/AH/VH, No Social Issues, Heme/Lymph: No Bruising, No Bleeding,No Lymphadenopathy Endocrine : No Polyuria, No Polydipsia, No Temperature Intolerance [facility] Past Medical History Medical History Anemia Diabetes Hypertension Methadone dependence Mild emphysema Thiamine deficiency Urge urinary incontinence Surgical History History of esophagogastroduodenoscopy (EGD) Family History Family History Father Throat cancer Mother No problems noted. Social History Social History Household Members: Children Household Members Other:: Daughter Housing: Apartment Housing Other:: [facility] Do you presently have visiting nurse or other home services: No Alcohol intake: former Year quit: 2019 Patient Tobacco Use Status: Current everyday Tobacco user Tobacco use type: Cigarette e-Cigarette/Vaping Use: Never Used Second Hand Smoke Exposure: Yes Substance Use Type: Heroin and Marijuana Advance Directives: No Advance Directives Information Provided: Yes service: No Current occupational status: disabled Physical Exam Vital Signs: Vital Signs: Last Vital Signs Temp 97.8 F 06/25/21 18:34 Pulse 67 06/25/21 23:29 Resp 11 L 06/25/21 23:29 BP 151/90 H 06/25/21 23:29 Pulse Ox 99 06/25/21 23:29 Body Mass Index 15.0 Const: Other: Appearance: Alert. Oriented X3. No acute distress. Cachectic, looks weak, unable to sit up due to weakness Eyes: Pupils equal, round and reactive to light. ENT: Pharynx normal. Neck: Normal inspection. Neck supple. No lymph nodes noted. No crepitus CVS: Normal heart rate and rhythm. Pulses normal. Normal S1 and S2 Respiratory: No respiratory distress. Breath sounds normal. No Wheezing. No rales Abdomen: Soft and nontender. No rigidity. No distention. Skin: Skin warm and dry. Normal skin color. Normal skin turgor. Extremities: Bilateral +2 pitting edema. No Lacerations. No Rash Neuro: Oriented X 3. No motor deficit. No sensory deficit. Moving all extermities. No slurred speech. Course Course Course Narrative: Patient's weakness is likely secondary to UTI. Also, patient's urine tested positive for marijuana. I discussed the patient with Dr. Hidalgo, instead admitting patient for UTI, she will be treated with antibiotics and then case Management will be consulted. Physician observation started at 02:00 Medical Decision Making Lab Data Result diagrams: 06/25/21 21:25 06/25/21 21:25 Labs: Lab Results 06/25/21 06/25/21 06/25/21 Range/Units 18:49 21:25 21:25 WBC 8.7 (4.8-10.8) X10*3/uL RBC 3.37 L (4.20-5.50) X10*6/uL Hgb 11.1 L (12.0-16.0) g/dl Hct 33.7 L (37.0-47.0) % MCV 100.0 H (80.0-98.0) fL MCH 32.9 (27.0-33.0) pg MCHC 32.9 (31.0-35.0) g/dl RDW 14.4 (11.0-16.0) % Plt Count 250 (160-400) X10*3/uL MPV 10.2 (9.4-12.3) fL Immature Gran % (Auto) 0.1 (0.0-0.4) % Neut % (Auto) 80.1 H (45-73) % Lymph % (Auto) 14.0 L (20-40) % Dickenson % (Auto) 5.3 (2-11) % Eos % (Auto) 0.2 (0-4) % Baso % (Auto) 0.3 (0-2) % Lymph # (Auto) 1.2 (1.2-4.9) X10*3/uL Dickenson # (Auto) 0.5 (0.1-1.2) X10*3/uL Eos # (Auto) 0.0 (0.0-0.4) X10*3/uL Baso # (Auto) 0.0 (0.0-0.2) X10*3/uL Abs Immat Gran (auto) 0.01 (0.00-0.03) X10*3/uL Absolute Neuts (auto) 7.0 (2.0-8.3) x10*3/uL Absolute Nucleated RBC 0.000 (0.0-0.012) X10*3/uL Nucleated RBC % (auto) 0.0 (0.0-0.2) /100WBC Sodium 136 (135-145) mmol/L Potassium 4.6 D (3.3-5.1) mmol/L Chloride 102 (96-108) mmol/L Carbon Dioxide 26 (22-29) mmol/L Anion Gap 13 (12-20) BUN 19 H (9-16) mg/dL Creatinine 0.88 (0.5-1.4) mg/dL Estim Creat Clear Calc 39.9 Estimated GFR > 60 POC Glucose 246 H (60-115) mg/dL Random Glucose 293 H (60-115) mg/dL Lactic Acid (0.5-2.0) mmol/L Calcium 9.2 (8.4-10.2) mg/dL Magnesium 1.8 (1.6-2.6) mg/dL Total Bilirubin 0.5 (0.0-1.0) mg/dL Direct Bilirubin 0.2 (0.0-0.5) mg/dL AST 21 D (5-31) U/L ALT 30 (0-31) U/L Alkaline Phosphatase 216 H D (39-117) U/L B-Natriuretic Peptide (<100) pg/mL Total Protein 6.1 L (6.5-8.0) g/dL Albumin 3.5 (3.5-5.0) g/dL Lipase 26 (8-78) U/L Urine Color Urine Appearance Urine pH (5.0-8.0) Ur Specific Deeth (1.005-1.025) Urine Protein (NEG-TRACE) MG/DL Urine Glucose (UA) (NEG) MG/DL Urine Ketones (NEG) MG/DL Urine Blood (NEG) Urine Nitrite (NEG) Ur Leukocyte Esterase (NEG) Urine RBC (0) /HPF Urine WBC (0-4) /HPF Ur Squamous Epith Cells /LPF Urine Bacteria /LPF Urine Mucus /LPF Urine Yeast /HPF Urine Opiates Screen (Not Detect) Urine Fentanyl Screen (Not Detect) Ur Barbiturates Screen (Not Detect) Ur Phencyclidine Scrn (Not Detect) Ur Amphetamines Screen (Not Detect) U Benzodiazepines Scrn (Not Detect) Urine Cocaine Screen (Not Detect) U Marijuana (THC) Screen (Not Detect) COVID-19 (STEPHANI) (Negative) COVID-19 Clin Com 06/25/21 06/25/21 06/25/21 Range/Units 21:25 21:25 21:25 WBC (4.8-10.8) X10*3/uL RBC (4.20-5.50) X10*6/uL Hgb (12.0-16.0) g/dl Hct (37.0-47.0) % MCV (80.0-98.0) fL MCH (27.0-33.0) pg MCHC (31.0-35.0) g/dl RDW (11.0-16.0) % Plt Count (160-400) X10*3/uL MPV (9.4-12.3) fL Immature Gran % (Auto) (0.0-0.4) % Neut % (Auto) (45-73) % Lymph % (Auto) (20-40) % Dickenson % (Auto) (2-11) % Eos % (Auto) (0-4) % Baso % (Auto) (0-2) % Lymph # (Auto) (1.2-4.9) X10*3/uL Dickenson # (Auto) (0.1-1.2) X10*3/uL Eos # (Auto) (0.0-0.4) X10*3/uL Baso # (Auto) (0.0-0.2) X10*3/uL Abs Immat Gran (auto) (0.00-0.03) X10*3/uL Absolute Neuts (auto) (2.0-8.3) x10*3/uL Absolute Nucleated RBC (0.0-0.012) X10*3/uL Nucleated RBC % (auto) (0.0-0.2) /100WBC Sodium (135-145) mmol/L Potassium (3.3-5.1) mmol/L Chloride (96-108) mmol/L Carbon Dioxide (22-29) mmol/L Anion Gap (12-20) BUN (9-16) mg/dL Creatinine (0.5-1.4) mg/dL Estim Creat Clear Calc Estimated GFR POC Glucose (60-115) mg/dL Random Glucose (60-115) mg/dL Lactic Acid 0.8 (0.5-2.0) mmol/L Calcium (8.4-10.2) mg/dL Magnesium (1.6-2.6) mg/dL Total Bilirubin (0.0-1.0) mg/dL Direct Bilirubin (0.0-0.5) mg/dL AST (5-31) U/L ALT (0-31) U/L Alkaline Phosphatase (39-117) U/L B-Natriuretic Peptide 18 (<100) pg/mL Total Protein (6.5-8.0) g/dL Albumin (3.5-5.0) g/dL Lipase (8-78) U/L Urine Color Urine Appearance Urine pH (5.0-8.0) Ur Specific Deeth (1.005-1.025) Urine Protein (NEG-TRACE) MG/DL Urine Glucose (UA) (NEG) MG/DL Urine Ketones (NEG) MG/DL Urine Blood (NEG) Urine Nitrite (NEG) Ur Leukocyte Esterase (NEG) Urine RBC (0) /HPF Urine WBC (0-4) /HPF Ur Squamous Epith Cells /LPF Urine Bacteria /LPF Urine Mucus /LPF Urine Yeast /HPF Urine Opiates Screen (Not Detect) Urine Fentanyl Screen (Not Detect) Ur Barbiturates Screen (Not Detect) Ur Phencyclidine Scrn (Not Detect) Ur Amphetamines Screen (Not Detect) U Benzodiazepines Scrn (Not Detect) Urine Cocaine Screen (Not Detect) U Marijuana (THC) Screen (Not Detect) COVID-19 (STEPHANI) Negative (Negative) COVID-19 Clin Com See Note 06/25/21 06/25/21 Range/Units 23:10 23:10 WBC (4.8-10.8) X10*3/uL RBC (4.20-5.50) X10*6/uL Hgb (12.0-16.0) g/dl Hct (37.0-47.0) % MCV (80.0-98.0) fL MCH (27.0-33.0) pg MCHC (31.0-35.0) g/dl RDW (11.0-16.0) % Plt Count (160-400) X10*3/uL MPV (9.4-12.3) fL Immature Gran % (Auto) (0.0-0.4) % Neut % (Auto) (45-73) % Lymph % (Auto) (20-40) % Dickenson % (Auto) (2-11) % Eos % (Auto) (0-4) % Baso % (Auto) (0-2) % Lymph # (Auto) (1.2-4.9) X10*3/uL Dickenson # (Auto) (0.1-1.2) X10*3/uL Eos # (Auto) (0.0-0.4) X10*3/uL Baso # (Auto) (0.0-0.2) X10*3/uL Abs Immat Gran (auto) (0.00-0.03) X10*3/uL Absolute Neuts (auto) (2.0-8.3) x10*3/uL Absolute Nucleated RBC (0.0-0.012) X10*3/uL Nucleated RBC % (auto) (0.0-0.2) /100WBC Sodium (135-145) mmol/L Potassium (3.3-5.1) mmol/L Chloride (96-108) mmol/L Carbon Dioxide (22-29) mmol/L Anion Gap (12-20) BUN (9-16) mg/dL Creatinine (0.5-1.4) mg/dL Estim Creat Clear Calc Estimated GFR POC Glucose (60-115) mg/dL Random Glucose (60-115) mg/dL Lactic Acid (0.5-2.0) mmol/L Calcium (8.4-10.2) mg/dL Magnesium (1.6-2.6) mg/dL Total Bilirubin (0.0-1.0) mg/dL Direct Bilirubin (0.0-0.5) mg/dL AST (5-31) U/L ALT (0-31) U/L Alkaline Phosphatase (39-117) U/L B-Natriuretic Peptide (<100) pg/mL Total Protein (6.5-8.0) g/dL Albumin (3.5-5.0) g/dL Lipase (8-78) U/L Urine Color YELLOW Urine Appearance CLEAR Urine pH 6.0 (5.0-8.0) Ur Specific Deeth 1.025 (1.005-1.025) Urine Protein NEG (NEG-TRACE) MG/DL Urine Glucose (UA) >=1000 H (NEG) MG/DL Urine Ketones 5 (NEG) MG/DL Urine Blood 1+ H (NEG) Urine Nitrite NEG (NEG) Ur Leukocyte Esterase TRACE H (NEG) Urine RBC 5-9 H (0) /HPF Urine WBC 30-49 H (0-4) /HPF Ur Squamous Epith Cells 1+ /LPF Urine Bacteria 3+ /LPF Urine Mucus 2+ /LPF Urine Yeast 3+ /HPF Urine Opiates Screen Not Detected (Not Detect) Urine Fentanyl Screen Not Detected (Not Detect) Ur Barbiturates Screen Not Detected (Not Detect) Ur Phencyclidine Scrn Not Detected (Not Detect) Ur Amphetamines Screen Not Detected (Not Detect) U Benzodiazepines Scrn Not Detected (Not Detect) Urine Cocaine Screen Not Detected (Not Detect) U Marijuana (THC) Screen POSITIVE H (Not Detect) COVID-19 (STEPHANI) (Negative) COVID-19 Clin Com Discharge Plan Discharge Clinical Impression: UTI (urinary tract infection), Adult failure to thrive, Weakness Patient Disposition: Still a Patient Prescriptions: No Action (DME) adult diapers briefs x-small See Rx Instructions .Route .MEDSUPPLY Qty: 120 RF: 11 Creon 6,000-19,000 -30,000 unit capsule,delayed release(DR/EC) 3 cap PO TID 30 Days Qty: 270 RF: 3 ascorbic acid (vitamin C) [Vitamin C] 500 mg tablet 500 mg PO DAILY Qty: 30 RF: 2 pyridoxine (vitamin B6) 100 mg tablet 50 mg PO DAILY Qty: 30 RF: 1 omeprazole 20 mg capsule,delayed release(DR/EC) 20 mg PO BID 30 Days Qty: 60 RF: 3 acetaminophen 325 mg tablet 650 mg PO Q6H PRN (Reason: pain) Qty: 120 RF: 0 ferrous sulfate 325 mg (65 mg iron) tablet 325 mg PO Q OTHER DAY 30 Days Qty: 15 RF: 2 gabapentin 600 mg Tablet 600 mg PO TID RF: 0 thiamine HCl (vitamin B1) 100 mg Tablet 100 mg PO DAILY RF: 0 lisinopril 5 mg Tablet 5 mg PO DAILY RF: 0 cholecalciferol (vitamin D3) 25 mcg (1,000 unit) Tablet 25 mcg PO DAILY RF: 0 Humalog KwikPen Insulin 200 unit/mL (3 mL) Insulin Pen 4 unit SUBCUT TID RF: 0 insulin degludec 100 unit/mL Solution 8 unit SUBCUT BEDTIME RF: 0 multivitamin with minerals Tablet 1 tab PO DAILY RF: 0 (DME) commode Kit See Rx Instructions .ROUTE .MEDSUPPLY Qty: 1 RF: 0
[2021-06-25 21:51] LABS: Alanine Aminotransferase 30 U/L (0-31); Albumin Level 3.5 g/dL (3.5-5.0); Alkaline Phosphatase 216 U/L (39-117); Anion Gap 13 (12-20); Aspartate Amino Transferase 21 U/L (5-31); Bilirubin Direct 0.2 mg/dL (0.0-0.5); Bilirubin Total 0.5 mg/dL (0.0-1.0); Blood Urea Nitrogen 19 mg/dL (9-16); Calcium 9.2 mg/dL (8.4-10.2); Carbon Dioxide 26 mmol/L (22-29); Chloride 102 mmol/L (96-108); Creatinine Clr Calc Pharmacy 39.9; Estimated Glomerular Filt Rate > 60; Glucose Random 293 mg/dL (60-115); Magnesium 1.8 mg/dL (1.6-2.6); Potassium 4.6 mmol/L (3.3-5.1); Sodium 136 mmol/L (135-145); Total Protein 6.1 g/dL (6.5-8.0)
[2021-06-25 21:56] LABS: B Type Natriuretic Peptide 18 pg/mL (<100)
[2021-06-25 21:59] LABS: Lipase 26 U/L (8-78)
[2021-06-25] MEDS: 0.9 % Sodium Chloride 1,000 ML 500 ML IVCONT (22:05)
[2021-06-25 22:18] LABS: COVID-19 Test Negative (Negative)
[2021-06-25 23:17] LABS: Appearance Urine CLEAR; Color Urine YELLOW; Glucose Urine UA >=1000 MG/DL (NEG); Leukocyte Esterase Urine TRACE (NEG); Nitrite Urine NEG (NEG); Specific Gravity - Urine 1.025 (1.005-1.025); UACC Culture Trigger YES; Urine Blood 1+ (NEG); Urine Ketones 5 MG/DL (NEG); Urine Protein NEG (NEG-TRACE)
[2021-06-25 23:24] LABS: Bacteria Urine 3+ /LPF; Mucus Urine 2+ /LPF; Squamous Epithelial Cell Urine 1+ /LPF; WBC Urine 30-49 /HPF (0-4)
[2021-06-25 23:29] VITALS: BP 151/90; PULSE 67; RESP 11; O2SAT 99
[2021-06-25 23:36] LABS: Amphetamine Screen Urine Not Detected (Not Detect); Barbiturates, Urine Not Detected (Not Detect); Benzodiazepines Screen Urine Not Detected (Not Detect); Cannabinoid Screen Urine POSITIVE (Not Detect); Cocaine Screen Urine Not Detected (Not Detect); Fentanyl, urine Not Detected (Not Detect); Opiate Screen Urine Not Detected (Not Detect); Phencyclidine Screen Urine Not Detected (Not Detect)
[2021-06-26] MEDS: cefTRIAXone sodium 1 GM in 0.9 % Sodium Chloride 50 ML IV (01:06)
[2021-06-26 06:26] VITALS: BP 146/93; PULSE 75; RESP 10; O2SAT 100
--- NOTE | 2021-06-26 08:26 | PC.NURSE ---
Pt worked with physical therapy, linens changed and hospital attire changed. Pt frail in appearance, slow to answer questions asked butalert and oriented at this time. Appears comfortable. 02 removed, sat 97% on room air. Meal ordered. Awaits case management
--- NOTE | 2021-06-26 09:02 | PHA.MEDREC ---
Addendum entered by Mami Mejia RPh 06/26/21 10:20: confirmed methadone dose from the bottle. Patient receives 18 mg daily Original Note: Pharmacy Consult ? Medication Reconciliation Pharmacy has reviewed the medication reconciliation completed by Enrique. There were a couple of discrepancies on the medications list. Patient's insulin was not included. Patient is on Humalog and Tresiba. Patient also takes methadone. Patient's daughter will her with her methadone to verify the dose. Mami Mejia, PharmD
--- NOTE | 2021-06-26 10:04 | MHC.CM.ED ---
Received case management consult overnight. Patient came to ER due to confusion. Found to have an UTI. Physical therapy eval completed. Short term rehab is recommended. Met with patient and daughter, Marilynn. Patient lives with daughter, uses a walker for ambulating long distances and had no services prior to coming to the hospital. PCP verified. Patient received 2 doses of Pfizer vaccine. Patient is declining short term rehab and VNA services at this time. Marilynn will transport her home. Deepthi MONTERO and Dr Denise aware. Continue to monitor for d/c needs.
--- NOTE | 2021-06-26 10:46 | PC.NURSE ---
Plan for discharge
== END 2021-06-26 11:22 | disposition home or self-care (01) ==
PROVIDERS: Physician Assistant; Emergency Provider Emergency Medicine; PCP Internal Medicine
DX: N39.0 Urinary tract infection, site not specified (principal); R41.82 Altered mental status, unspecified; R53.1 Weakness; F17.210 Nicotine dependence, cigarettes, uncomplicated; Z20.822 Contact with and (suspected) exposure to COVID-19; Z79.899 Other long term (current) drug therapy; Z71.6 Tobacco abuse counseling
CPT/HCPCS: 36415; 80048; 80076; 80307; 81001; 82947; 83605; 83690; 83735; 83880; 85025; 87040; 87086; 87147; 87205; 87635; 93005; 96361; 96365; 97162; 99284; J0696

== ENCOUNTER 2021-06-27 18:58 | Inpatient (IN) | payer OTHER, SELFPAY ==
--- NOTE | ~2021-06-27 | CT_ITS ---
EXAMINATION: CT HEAD WITHOUT CONTRAST (STROKE PROTOCOL) CLINICAL INFORMATION: Stroke protocol. Left-sided weakness. COMPARISON: CT head dated from 01/08/2021. TECHNIQUE: Contiguous axial imaging was performed from the skull base to vertex without intravenous administration of contrast. This CT examination was performed using dose optimization techniques as appropriate, variously including the following: *Automated exposure control *Adjustment of mA and/or kV according to patient size (this includes techniques or standardized protocols for targeted exams where dose is matched to indication/reason for exam; i.e. extremities or head) *Use of iterative reconstruction technique DLP: 405 mGy-cm FINDINGS: Evaluation is limited due to motion. There is a 3 cm intraparenchymal hemorrhage centered within the right basal ganglia with surrounding edema and mass effect leading to partial distortion of the adjacent right lateral ventricle and 1-2 mm of leftward midline shift at the level of the septum pellucidum. Cavazos to white matter differentiation is otherwise preserved. The suprasellar cisterns are patent. No other foci of intraparenchymal bleeding. No extra-axial fluid collection. There is no hydrocephalus. No acute soft tissue or osseous abnormalities. The visualized paranasal sinuses and mastoids are clear. CT/CT head for stroke IMPRESSION: There is a 3 cm intraparenchymal hemorrhage in the right basal ganglia leading to distortion of the adjacent right lateral ventricle and approximately 1-2 mm of leftward midline shift. This critical result was discussed with Topher Silva at 07/02/2021 8:39 PM and it was ascertained that the content and urgency of the report was understood at the time of direct communication.
[2021-06-27 20:30] VITALS: BP 123/81; PULSE 77; RESP 16; TEMP 36.9; O2SAT 94; BMI 15.5
[2021-06-27 21:57] LABS: COVID-19 Test Negative (Negative)
[2021-06-27 22:38] VITALS: BP 120/82; PULSE 77; RESP 12; O2SAT 96
--- NOTE | 2021-06-27 23:40 | ED.GENADULT ---
HPI - General Adult General Chief complaint: General Medical Stated complaint: per labs need to be redrawn Time Seen by Provider: 06/27/21 23:25 Source: patient and family Mode of arrival: ambulatory Limitations: no limitations History of Present Illness HPI narrative: 60-year-old female called to come back for positive blood culture ( Gram-positive cocci in 1 bottle). 60-year-old female was recently admitted to the hospital for cachexia and UTI, patient also had coffee-ground emesis, patient was discharged home yesterday on Zithromax, patient had EGD while was inpatient which shows multiple small gastric ulcers with possible esophageal mass, patient was placed on PPI, according to the family patient is still lethargic and cachectic with anorexia , however patient been having stable vital signs in the emergency department Related Data Home Medications Medication Instructions Recorded Confirmed cholecalciferol (vitamin D3) 25 25 mcg PO DAILY 01/09/21 06/26/21 mcg (1,000 unit) tablet gabapentin 600 mg tablet 600 mg PO TID 01/09/21 06/26/21 insulin degludec 100 unit/mL 5 unit SUBCUT BEDTIME 01/09/21 06/26/21 subcutaneous solution insulin lispro 200 unit/mL (3 mL) 4 unit SUBCUT TIDAC PRN 01/09/21 06/26/21 subcutaneous pen (Humalog KwikPen U-200 Insulin) multivitamin with minerals 1 tab PO DAILY 01/09/21 06/26/21 thiamine HCl (vitamin B1) 100 mg 100 mg PO DAILY 01/09/21 06/26/21 tablet dapagliflozin 10 mg tablet 1 tab PO DAILY 06/26/21 06/26/21 (Farxiga) methadone 10 mg tablet 18 mg PO DAILY 06/26/21 06/26/21 Previous Rx's Medication Instructions Recorded commode #1 ea 01/11/21 adult diapers briefs #120 ea 02/10/21 jrfoad-lifvikpy-svxvdof 3 cap PO TID 30 Days #270 cap 04/03/21 6,000-19,000-30,000 unit capsule,delayed rel (Creon) ascorbic acid (vitamin C) 500 mg 500 mg PO DAILY #30 tab 05/01/21 tablet (Vitamin C) pyridoxine (vitamin B6) 100 mg 50 mg PO DAILY #30 tab 05/01/21 tablet acetaminophen 325 mg tablet 650 mg PO Q6H PRN #120 tab 05/15/21 omeprazole 20 mg capsule,delayed 20 mg PO BID 30 Days #60 cap 05/15/21 release ferrous sulfate 325 mg (65 mg 325 mg PO Q OTHER DAY 30 Days #15 05/24/21 iron) tablet tab cephalexin 500 mg capsule 500 mg PO QID 7 Days #28 cap 06/26/21 Allergies Allergy/AdvReac Type Severity Reaction Status Date / Time No Known Allergies Allergy Verified 06/27/21 20:30 Review of Systems Review of Systems: all other systems are reviewed and are negative Constitutional: Reports as per HPI and Reports no additional constitutional complaints Eyes: Reports as per HPI and Reports no additional eye complaints Reports system reviewed and no additional complaints, except as documented Cardiovascular: Reports as per HPI and Reports no additional cardiovascular complaints Respiratory: Reports as per HPI and Reports no additional respiratory complaints Gastrointestinal: Reports as per HPI and Reports no additional gastrointestinal complaints Genitourinary: Reports no additional female genitourinary complaints Musculoskeletal: Reports no additional musculoskeletal complaints Skin/Breast: Reports system reviewed and no additional complaints, except as docu Psychiatric: Reports no additional psychiatric complaints Endocrine: Reports no additional endocrine complaints Hematologic/Lymphatic: Reports no additional hematologic/lymphatic complaints Allergic/Immunologic: Reports no additional allergic/immunologic complaints Reports system reviewed and no additional complaints, except as documented and Reports Abnormal speech present [facility] Past Medical History Medical History Anemia Diabetes Hypertension Methadone dependence Mild emphysema Thiamine deficiency Urge urinary incontinence Surgical History History of esophagogastroduodenoscopy (EGD) Family History Family History Father Throat cancer Mother No problems noted. Social History Social History Household Members: Children Household Members Other:: Daughter Housing: Apartment Housing Other:: [facility] Do you presently have visiting nurse or other home services: No Alcohol intake: former Year quit: 2019 Patient Tobacco Use Status: Current everyday Tobacco user Tobacco use type: Cigarette e-Cigarette/Vaping Use: Never Used Second Hand Smoke Exposure: Yes Substance Use Type: Heroin and Marijuana Advance Directives: No Advance Directives Information Provided: No service: No Current occupational status: disabled Physical Exam Vital Signs: Vital Signs: Last Vital Signs Temp 98.2 F 06/28/21 00:22 Pulse 70 06/28/21 00:22 Resp 11 L 06/28/21 00:22 BP 140/94 H 06/28/21 00:22 Pulse Ox 97 06/28/21 00:22 Body Mass Index 15.5 vital signs have been reviewed as appeared to be correct. Blood pressure normal. Heart rate normal. Respiration rate normal. Temperature normal. Oxygen saturation normal. Appearance: Alert. Oriented X3. No acute distress. Head: Normal external exam. Normocephalic. Atraumatic. No Caceres signs noted. No raccoon eyes noted Eyes: PERRLA. EOMI. Conjunctiva and sclera normal. Eyelids normal. ENT: TM's Normal. Pharynx normal. Uvula midline. Moist mucous membranes. No trismus noted. No drooling noted. No muffled voice noted. Neck: Normal inspection. Neck supple. FROM. No adenopathy. Thyroid Normal. No meningeal signs. No neck mass noted. CVS: Normal heart rate and rhythm. Heart sound normal. No murmurs noted. Pulses normal throughout. Respiratory: No respiratory distress. Painless inspiration. Breath sounds normal. No wheezes/rales/rhonchi noted. Chest nontender. No accessory muscle usage noted or decreased air movement noted. Abdomen: Soft and nontender. Bowel sounds normal in all 4 quadrants. No distention noted. No organomegaly noted. No visible injury noted. Back: No CVA tenderness. Full range of motion noted. Skin: Skin warm and dry. Normal skin color. Normal skin turgor. No rashes/lesions/lacerations noted. Extremities: No lower extremity edema. Extremities exhibit normal range of motion. Extremities nontender. Neuro: Oriented X 3. Cranial nerve exam: II-XII are grossly intact No motor deficit. No sensory deficit. Reflexes normal. Course Course Course Narrative: assessment and plan. 60-year-old female return to the ED after been discharged from hospital for UTI, and lethargy. Patient had 1 blood culture positive for Gram-positive cocci which is likely to be contaminated, patient do not meet criteria for sepsis, but persistent of UTI despite patient is on oral antibiotic will switch to IV ceftriaxone and admit the patient. Medical Decision Making Medical Records Medical records reviewed: Yes I reviewed the patient's medical records. Lab Data Lab results reviewed: Yes I reviewed the patient's lab results. Result diagrams: 06/28/21 00:03 06/28/21 00:03 Labs: Lab Results 06/27/21 06/27/21 06/28/21 Range/Units 21:14 23:49 00:03 WBC 9.7 (4.8-10.8) X10*3/uL RBC 3.16 L (4.20-5.50) X10*6/uL Hgb 10.6 L (12.0-16.0) g/dl Hct 32.1 L (37.0-47.0) % MCV 101.6 H (80.0-98.0) fL MCH 33.5 H (27.0-33.0) pg MCHC 33.0 (31.0-35.0) g/dl RDW 14.0 (11.0-16.0) % Plt Count 205 (160-400) X10*3/uL MPV 10.4 (9.4-12.3) fL Immature Gran % (Auto) 0.3 (0.0-0.4) % Neut % (Auto) 76.0 H (45-73) % Lymph % (Auto) 18.6 L (20-40) % [place] % (Auto) 4.4 (2-11) % Eos % (Auto) 0.3 (0-4) % Baso % (Auto) 0.4 (0-2) % Lymph # (Auto) 1.8 (1.2-4.9) X10*3/uL [place] # (Auto) 0.4 (0.1-1.2) X10*3/uL Eos # (Auto) 0.0 (0.0-0.4) X10*3/uL Baso # (Auto) 0.0 (0.0-0.2) X10*3/uL Abs Immat Gran (auto) 0.03 (0.00-0.03) X10*3/uL Absolute Neuts (auto) 7.4 (2.0-8.3) x10*3/uL Absolute Nucleated RBC 0.000 (0.0-0.012) X10*3/uL Nucleated RBC % (auto) 0.0 (0.0-0.2) /100WBC VBG pH (7.32-7.43) VBG pCO2 mmHg VBG pO2 mmHg VBG HCO3 (22-26) mmol/L VBG O2 Saturation % VBG Base Excess mmol/L Sodium (135-145) mmol/L Potassium (3.3-5.1) mmol/L Chloride (96-108) mmol/L Carbon Dioxide (22-29) mmol/L Anion Gap (12-20) BUN (9-16) mg/dL Creatinine (0.5-1.4) mg/dL Estim Creat Clear Calc Estimated GFR POC Glucose 405 H* (60-115) mg/dL Random Glucose Fasting Glucose (60-99) mg/dL Lactic Acid (0.5-2.0) mmol/L Calcium (8.4-10.2) mg/dL Total Bilirubin (0.0-1.0) mg/dL AST (5-31) U/L ALT (0-31) U/L Alkaline Phosphatase (39-117) U/L Total Protein (6.5-8.0) g/dL Albumin (3.5-5.0) g/dL Urine Color Urine Appearance Urine pH (5.0-8.0) Ur Specific [place] (1.005-1.025) Urine Protein (NEG-TRACE) MG/DL Urine Glucose (UA) (NEG) MG/DL Urine Ketones (NEG) MG/DL Urine Blood (NEG) Urine Nitrite (NEG) Ur Leukocyte Esterase (NEG) Urine RBC (0) /HPF Urine WBC (0-4) /HPF Urine WBC Clumps Ur Squamous Epith Cells /LPF Urine Bacteria /LPF Urine Mucus /LPF Urine Yeast /HPF COVID-19 (STEPHANI) Negative (Negative) COVID-19 Clin Com See Note 06/28/21 06/28/21 06/28/21 Range/Units 00:03 00:03 00:17 WBC (4.8-10.8) X10*3/uL RBC (4.20-5.50) X10*6/uL Hgb (12.0-16.0) g/dl Hct (37.0-47.0) % MCV (80.0-98.0) fL MCH (27.0-33.0) pg MCHC (31.0-35.0) g/dl RDW (11.0-16.0) % Plt Count (160-400) X10*3/uL MPV (9.4-12.3) fL Immature Gran % (Auto) (0.0-0.4) % Neut % (Auto) (45-73) % Lymph % (Auto) (20-40) % [place] % (Auto) (2-11) % Eos % (Auto) (0-4) % Baso % (Auto) (0-2) % Lymph # (Auto) (1.2-4.9) X10*3/uL [place] # (Auto) (0.1-1.2) X10*3/uL Eos # (Auto) (0.0-0.4) X10*3/uL Baso # (Auto) (0.0-0.2) X10*3/uL Abs Immat Gran (auto) (0.00-0.03) X10*3/uL Absolute Neuts (auto) (2.0-8.3) x10*3/uL Absolute Nucleated RBC (0.0-0.012) X10*3/uL Nucleated RBC % (auto) (0.0-0.2) /100WBC VBG pH (7.32-7.43) VBG pCO2 mmHg VBG pO2 mmHg VBG HCO3 (22-26) mmol/L VBG O2 Saturation % VBG Base Excess mmol/L Sodium 133 L (135-145) mmol/L Potassium 4.4 (3.3-5.1) mmol/L Chloride 99 (96-108) mmol/L Carbon Dioxide 25 (22-29) mmol/L Anion Gap 13 (12-20) BUN 19 H (9-16) mg/dL Creatinine 1.43 H (0.5-1.4) mg/dL Estim Creat Clear Calc 26.1 Estimated GFR 38 POC Glucose (60-115) mg/dL Random Glucose Not Reportable Fasting Glucose 505 H* (60-99) mg/dL Lactic Acid 0.8 (0.5-2.0) mmol/L Calcium 9.2 (8.4-10.2) mg/dL Total Bilirubin 0.3 (0.0-1.0) mg/dL AST 20 (5-31) U/L ALT 28 (0-31) U/L Alkaline Phosphatase 200 H (39-117) U/L Total Protein 6.6 (6.5-8.0) g/dL Albumin 3.5 (3.5-5.0) g/dL Urine Color STRAW Urine Appearance HAZY Urine pH 6.0 (5.0-8.0) Ur Specific [place] 1.010 (1.005-1.025) Urine Protein NEG (NEG-TRACE) MG/DL Urine Glucose (UA) >=1000 H (NEG) MG/DL Urine Ketones NEG (NEG) MG/DL Urine Blood TRACE (NEG) Urine Nitrite NEG (NEG) Ur Leukocyte Esterase 1+ H (NEG) Urine RBC 0-2 (0) /HPF Urine WBC 76-150 H (0-4) /HPF Urine WBC Clumps NOTED Ur Squamous Epith Cells 1+ /LPF Urine Bacteria NONE /LPF Urine Mucus TRACE /LPF Urine Yeast 3+ /HPF COVID-19 (STEPHANI) (Negative) COVID-19 Clin Com 06/28/21 06/28/21 Range/Units 00:43 01:25 WBC (4.8-10.8) X10*3/uL RBC (4.20-5.50) X10*6/uL Hgb (12.0-16.0) g/dl Hct (37.0-47.0) % MCV (80.0-98.0) fL MCH (27.0-33.0) pg MCHC (31.0-35.0) g/dl RDW (11.0-16.0) % Plt Count (160-400) X10*3/uL MPV (9.4-12.3) fL Immature Gran % (Auto) (0.0-0.4) % Neut % (Auto) (45-73) % Lymph % (Auto) (20-40) % [place] % (Auto) (2-11) % Eos % (Auto) (0-4) % Baso % (Auto) (0-2) % Lymph # (Auto) (1.2-4.9) X10*3/uL [place] # (Auto) (0.1-1.2) X10*3/uL Eos # (Auto) (0.0-0.4) X10*3/uL Baso # (Auto) (0.0-0.2) X10*3/uL Abs Immat Gran (auto) (0.00-0.03) X10*3/uL Absolute Neuts (auto) (2.0-8.3) x10*3/uL Absolute Nucleated RBC (0.0-0.012) X10*3/uL Nucleated RBC % (auto) (0.0-0.2) /100WBC VBG pH 7.40 (7.32-7.43) VBG pCO2 47 mmHg VBG pO2 57 mmHg VBG HCO3 30 H (22-26) mmol/L VBG O2 Saturation 83.0 % VBG Base Excess 4.9 mmol/L Sodium (135-145) mmol/L Potassium (3.3-5.1) mmol/L Chloride (96-108) mmol/L Carbon Dioxide (22-29) mmol/L Anion Gap (12-20) BUN (9-16) mg/dL Creatinine (0.5-1.4) mg/dL Estim Creat Clear Calc Estimated GFR POC Glucose 319 H (60-115) mg/dL Random Glucose Fasting Glucose (60-99) mg/dL Lactic Acid (0.5-2.0) mmol/L Calcium (8.4-10.2) mg/dL Total Bilirubin (0.0-1.0) mg/dL AST (5-31) U/L ALT (0-31) U/L Alkaline Phosphatase (39-117) U/L Total Protein (6.5-8.0) g/dL Albumin (3.5-5.0) g/dL Urine Color Urine Appearance Urine pH (5.0-8.0) Ur Specific [place] (1.005-1.025) Urine Protein (NEG-TRACE) MG/DL Urine Glucose (UA) (NEG) MG/DL Urine Ketones (NEG) MG/DL Urine Blood (NEG) Urine Nitrite (NEG) Ur Leukocyte Esterase (NEG) Urine RBC (0) /HPF Urine WBC (0-4) /HPF Urine WBC Clumps Ur Squamous Epith Cells /LPF Urine Bacteria /LPF Urine Mucus /LPF Urine Yeast /HPF COVID-19 (STEPHANI) (Negative) COVID-19 Clin Com Discharge Plan Discharge Clinical Impression: Lethargic, Cachexia, Urinary tract infection Patient Disposition: Admitted As Inpatient
[2021-06-28] VITALS (11 sets, daily range): BP systolic 103–162; BP diastolic 70–96; PULSE 62–70; RESP 10–18; TEMP 36.6–36.9; O2SAT 96–100
[2021-06-28 00:11] LABS: MANUAL DIFF FLAG NO
[2021-06-28 00:11] LABS: Glucose, Whole Blood 405 mg/dL (60-115)
[2021-06-28 00:12] LABS: Basophils Percent Auto 0.4 % (0-2); Eosinophils Percent Auto 0.3 % (0-4); Hematocrit 32.1 % (37.0-47.0); Hemoglobin 10.6 g/dl (12.0-16.0); Imm Gran Abs Auto 0.03 X10*3/uL (0.00-0.03); Imm Gran Pct Auto 0.3 % (0.0-0.4); Lymphocytes Absolute Auto 1.8 X10*3/uL (1.2-4.9); Lymphocytes Percent Auto 18.6 % (20-40); Mean Corpuscular Hemoglobin 33.5 pg (27.0-33.0); Mean Corpuscular Volume 101.6 fL (80.0-98.0); Mean Platelet Volume 10.4 fL (9.4-12.3); Monocytes Absolute Auto 0.4 X10*3/uL (0.1-1.2); Monocytes Percent Auto 4.4 % (2-11); Neutrophils Absolute Auto 7.4 x10*3/uL (2.0-8.3); Platelet Count 205 X10*3/uL (160-400); Red Blood Count 3.16 X10*6/uL (4.20-5.50); White Blood Count 9.7 X10*3/uL (4.8-10.8)
[2021-06-28 00:29] LABS: Lactic Acid 0.8 mmol/L (0.5-2.0)
[2021-06-28 00:40] LABS: Glucose Fasting 505 mg/dL (60-99)
[2021-06-28] MEDS: 0.9 % Sodium Chloride 1,000 ML 999 ML IVCONT (00:40)
[2021-06-28 00:41] LABS: Alanine Aminotransferase 28 U/L (0-31); Albumin Level 3.5 g/dL (3.5-5.0); Alkaline Phosphatase 200 U/L (39-117); Anion Gap 13 (12-20); Aspartate Amino Transferase 20 U/L (5-31); Bilirubin Total 0.3 mg/dL (0.0-1.0); Blood Urea Nitrogen 19 mg/dL (9-16); Calcium 9.2 mg/dL (8.4-10.2); Carbon Dioxide 25 mmol/L (22-29); Chloride 99 mmol/L (96-108); Creatinine Clr Calc Pharmacy 26.1; Estimated Glomerular Filt Rate 38; Potassium 4.4 mmol/L (3.3-5.1); Sodium 133 mmol/L (135-145); Total Protein 6.6 g/dL (6.5-8.0)
[2021-06-28] MEDS: Insulin Regular, Human 100 UNIT/ML 3 ML VIAL 10 UNIT IVPUSH (00:45)
[2021-06-28 00:48] LABS: Appearance Urine HAZY; Color Urine STRAW; Glucose Urine UA >=1000 MG/DL (NEG); Leukocyte Esterase Urine 1+ (NEG); Nitrite Urine NEG (NEG); UACC Culture Trigger YES; Urine Blood TRACE (NEG); Urine Ketones NEG (NEG); Urine Protein NEG (NEG-TRACE)
[2021-06-28 00:48] LABS: Venous Blood Gas Refer to POC result
[2021-06-28 00:50] LABS: VBG Base Excess 4.9 mmol/L; VBG HCO3 30 mmol/L (22-26); VBG pCO2 47 mmHg; VBG pO2 57 mmHg
[2021-06-28 01:12] LABS: Mucus Urine TRACE /LPF; RBC Urine 0-2 /HPF (0); Squamous Epithelial Cell Urine 1+ /LPF
[2021-06-28 01:13] LABS: WBC Clumps Urine NOTED
[2021-06-28 01:29] LABS: Glucose, Whole Blood 319 mg/dL (60-115)
--- NOTE | 2021-06-28 01:40 | PC.NURSE ---
This RN asked Dr Greene if he wants repeat insulin. Monroe made aware that pt's blood draw glucose was drawn prior to initial dose of 10 units of IV insulin and it a POC was reassessed and it is 319. Dr Childress instructs this RN to discontinue additional dose at this time.
[2021-06-28] MEDS: cefTRIAXone sodium 1 GM in 0.9 % Sodium Chloride 50 ML IV (03:03)
[2021-06-28 03:04] LABS: Glucose, Whole Blood 215 mg/dL (60-115)
--- NOTE | 2021-06-28 04:36 | P.HPHOSP_ITS ---
History of Present Illness Date of Service: 06/28/21 Chief Complaint: Positive cultures 60-year-old Vincentian-speaking female with a past medical history of hypertension, diabetes, pill induced esophagitis, peptic ulcer disease, dysphagia, cachexia, severe protein calorie malnutrition, anemia, methadone dependent presented to the hospital with a chief complaint of generalized weakness. Patient is a poor historian. Most of the history obtained from the patient started bedside. Reportedly patient of presented to the hospital 2 days ago with chief complaint of generalized weakness and was noted to have UTI and was sent home on oral antibiotics; and SI patient cart a call mentioned that her blood cultures are positive and also to come back to the hospital. After she came back from the work patient's daughter noted that the patient has drowsy and appears very tired and exhausted all like however she was in the morning. Hence wanted to the hospital for further evaluation. Mentioned that yesterday morning patient was alert awake and walking around the house, ate her lunch. Review of all other systems is limited as the patient is a poor historian. Patient's daughter denies patient having any fevers. Denies patient complaining of any chest pain palpitations. ER course: Per ER team patient noted a abnormal UA consistent with UTI. Given ceftriaxone. And blood cultures final results are pending-preliminary showing Gram-positive cocci. Admitted to the hospital for further management. [facility] Medical History Anemia Diabetes Hypertension Methadone dependence Mild emphysema Thiamine deficiency Urge urinary incontinence Family History Father Throat cancer Mother No problems noted. Pertinent family history: as above Surgical History History of esophagogastroduodenoscopy (EGD) Social History Household Members: Children Household Members Other:: Daughter Housing: Apartment Housing Other:: [facility] Do you presently have visiting nurse or other home services: No Alcohol intake: former Year quit: 2019 Patient Tobacco Use Status: Current everyday Tobacco user Tobacco use type: Cigarette e-Cigarette/Vaping Use: Never Used Second Hand Smoke Exposure: Yes Substance Use Type: Heroin and Marijuana Advance Directives: No Advance Directives Information Provided: No service: No Current occupational status: disabled Meds Allergies Allergy/AdvReac Type Severity Reaction Status Date / Time No Known Allergies Allergy Verified 06/27/21 20:30 Active Medications: Current Medications Acetaminophen (Acetaminophen 325 Mg Tablet) 650 mg PO Q6H PRN PRN Reason: Pain, Mild (Pain Scale 1-3) Gabapentin (Gabapentin 600 Mg Tablet) 600 mg PO TID [facility] Ceftriaxone Sodium 1 gm/ (Sodium Chloride) 50 mls @ 100 mls/hr IV Q24H [facility] Melatonin (Melatonin 3 Mg Tablet) 6 mg PO BEDTIME PRN PRN Reason: Insomnia Methadone HCl (Methadone Hcl 10 Mg Tablet) 18 mg PO DAILY [facility] Multivitamins/Vitamin C (Multivitamin Tablet) 1 tab PO DAILY [facility] Omeprazole (Omeprazole 20 Mg Capsule.Dr) 20 mg PO BID [facility] Senna (Sennosides 8.6 Mg Tablet) 17.2 mg PO BEDTIME PRN PRN Reason: Constipation Sodium Chloride (0.9 % Sodium Chloride Flush 3 Ml Syringe) 3 ml IVFLUSH QSHIFT [facility] Thiamine HCl (Thiamine Hcl 100 Mg Tablet) 100 mg PO DAILY [facility] Home Medications Medication Instructions Recorded Confirmed Last Taken Type cholecalciferol (vitamin D3) 25 25 mcg PO DAILY 01/09/21 06/28/21 06/24/21 History mcg (1,000 unit) tablet gabapentin 600 mg tablet 600 mg PO TID 01/09/21 06/28/21 06/24/21 History insulin degludec 100 unit/mL 5 unit SUBCUT BEDTIME 01/09/21 06/28/21 06/24/21 History subcutaneous solution insulin lispro 200 unit/mL (3 mL) 4 unit SUBCUT TIDAC PRN 01/09/21 06/28/21 06/24/21 History subcutaneous pen (Humalog KwikPen U-200 Insulin) multivitamin with minerals 1 tab PO DAILY 01/09/21 06/28/21 06/24/21 History thiamine HCl (vitamin B1) 100 mg 100 mg PO DAILY 01/09/21 06/28/21 06/24/21 History tablet dapagliflozin 10 mg tablet 1 tab PO DAILY 06/26/21 06/28/21 06/24/21 History (Farxiga) methadone 10 mg tablet 18 mg PO DAILY 06/26/21 06/28/21 Unknown History Physical Exam Vital Signs and Narrative: Vital Signs: Last Vital Signs Temp 98.2 F 06/28/21 00:22 Pulse 68 06/28/21 02:59 Resp 11 L 06/28/21 02:59 BP 103/70 06/28/21 02:59 Pulse Ox 99 06/28/21 03:03 Body Mass Index 15.5 Gen: Appears be in no acute distress. Cachectic HEENT: NCAT, Moist mucosa. Pulmonary: Course breath sounds, fair air entry CVS: Normal S1-S2 Abdomen: BS+, Soft, Nontender Extremities: Warm well perfused Neuro: Drowsy. Responds to verbal commands. Results Labs CBC and Chem 7: 06/28/21 00:03 06/28/21 00:03 Labs: Laboratory Results - last 24 hr 06/27/21 06/27/21 06/28/21 21:14 23:49 00:03 MCV 101.6 H MCH 33.5 H MCHC 33.0 RDW 14.0 Plt Count 205 MPV 10.4 Immature Gran % (Auto) 0.3 Neut % (Auto) 76.0 H Lymph % (Auto) 18.6 L [place] % (Auto) 4.4 Eos % (Auto) 0.3 Baso % (Auto) 0.4 Lymph # (Auto) 1.8 [place] # (Auto) 0.4 Eos # (Auto) 0.0 Baso # (Auto) 0.0 Abs Immat Gran (auto) 0.03 Absolute Neuts (auto) 7.4 Absolute Nucleated RBC 0.000 Nucleated RBC % (auto) 0.0 VBG pH VBG pCO2 VBG pO2 VBG HCO3 VBG O2 Saturation VBG Base Excess Anion Gap Estim Creat Clear Calc Estimated GFR POC Glucose 405 H* Random Glucose Fasting Glucose Lactic Acid Calcium Total Bilirubin AST ALT Alkaline Phosphatase Total Protein Albumin Urine Color Urine Appearance Urine pH Ur Specific [place] Urine Protein Urine Glucose (UA) Urine Ketones Urine Blood Urine Nitrite Ur Leukocyte Esterase Urine RBC Urine WBC Urine WBC Clumps Ur Squamous Epith Cells Urine Bacteria Urine Mucus Urine Yeast COVID-19 (STEPHANI) Negative COVID-19 Clin Com See Note 06/28/21 06/28/21 06/28/21 00:03 00:03 00:17 MCV MCH MCHC RDW Plt Count MPV Immature Gran % (Auto) Neut % (Auto) Lymph % (Auto) [place] % (Auto) Eos % (Auto) Baso % (Auto) Lymph # (Auto) [place] # (Auto) Eos # (Auto) Baso # (Auto) Abs Immat Gran (auto) Absolute Neuts (auto) Absolute Nucleated RBC Nucleated RBC % (auto) VBG pH VBG pCO2 VBG pO2 VBG HCO3 VBG O2 Saturation VBG Base Excess Anion Gap 13 Estim Creat Clear Calc 26.1 Estimated GFR 38 POC Glucose Random Glucose Not Reportable Fasting Glucose 505 H* Lactic Acid 0.8 Calcium 9.2 Total Bilirubin 0.3 AST 20 ALT 28 Alkaline Phosphatase 200 H Total Protein 6.6 Albumin 3.5 Urine Color STRAW Urine Appearance HAZY Urine pH 6.0 Ur Specific [place] 1.010 Urine Protein NEG Urine Glucose (UA) >=1000 H Urine Ketones NEG Urine Blood TRACE Urine Nitrite NEG Ur Leukocyte Esterase 1+ H Urine RBC 0-2 Urine WBC 76-150 H Urine WBC Clumps NOTED Ur Squamous Epith Cells 1+ Urine Bacteria NONE Urine Mucus TRACE Urine Yeast 3+ COVID-19 (STEPHANI) COVID-19 [employer] 06/28/21 06/28/21 06/28/21 00:43 01:25 02:59 MCV MCH MCHC RDW Plt Count MPV Immature Gran % (Auto) Neut % (Auto) Lymph % (Auto) [place] % (Auto) Eos % (Auto) Baso % (Auto) Lymph # (Auto) [place] # (Auto) Eos # (Auto) Baso # (Auto) Abs Immat Gran (auto) Absolute Neuts (auto) Absolute Nucleated RBC Nucleated RBC % (auto) VBG pH 7.40 VBG pCO2 47 VBG pO2 57 VBG HCO3 30 H VBG O2 Saturation 83.0 VBG Base Excess 4.9 Anion Gap Estim Creat Clear Calc Estimated GFR POC Glucose 319 H 215 H Random Glucose Fasting Glucose Lactic Acid Calcium Total Bilirubin AST ALT Alkaline Phosphatase Total Protein Albumin Urine Color Urine Appearance Urine pH Ur Specific [place] Urine Protein Urine Glucose (UA) Urine Ketones Urine Blood Urine Nitrite Ur Leukocyte Esterase Urine RBC Urine WBC Urine WBC Clumps Ur Squamous Epith Cells Urine Bacteria Urine Mucus Urine Yeast COVID-19 (STEPHANI) COVID-19 [employer] Assessment and Plan (1) Urinary tract infection: Status: Acute (2) Malnutrition: Status: Acute (3) Cachexia: Status: Acute (4) Diabetes: Qualifiers: Diabetes mellitus complication status: with hyperglycemia Diabetes mellitus [facility] insulin use: with intermodal customer service use Diabetes mellitus type: type 2 Qualified Code(s): E11.65 - Type 2 diabetes mellitus with hyperglycemia; Z79.4 - USP (current) use of insulin Status: Acute 60-year-old Vincentian-speaking female with a past medical history of hypertension, diabetes, pill induced esophagitis, peptic ulcer disease, dysphagia, cachexia, severe protein calorie malnutrition, anemia, methadone dependent presented to the hospital with a chief complaint of generalized weakness. UTI: Continue ceftriaxone. Bacteremia: Blood cultures growing GPC. Final results pending. Id consult. Acute kidney injury: Gentle IV fluids. Hold nephrotoxic medications. Pharmacy to [place] dose home medications. Gabapentin dose reduced to 300 mg t.i.d.. Diabetes: Lantus 10 units for since sliding scale. Hold home regimen. Monitor fingerstick glucose. Severe protein calorie malnutrition: Nutrition consult. History of esophagitis/gastric ulcer: PPI History of dysphagia: Speech and swallow eval. DVT prophylaxis: SCD boots Code status: Full code Off Note: Things to follow up by day hospitalist once Care taken over at 7AM on 06/28/21: -Final culture results -ID consult inputs Quality Stroke Does the patient have a stroke diagnosis?: No VTE Prior VTE?: No VTE Risk Level:: Medical - moderate - high VTE Device Contraindication: N/A - Device Ordered VTE Drug Contraindication: Treatment Not Indicated
[2021-06-28 07:08] LABS: MANUAL DIFF FLAG NO
[2021-06-28 07:17] LABS: Basophils Percent Auto 0.4 % (0-2); Eosinophils Absolute Auto 0.1 X10*3/uL (0.0-0.4); Eosinophils Percent Auto 0.7 % (0-4); Hematocrit 28.6 % (37.0-47.0); Hemoglobin 9.4 g/dl (12.0-16.0); Imm Gran Abs Auto 0.03 X10*3/uL (0.00-0.03); Imm Gran Pct Auto 0.4 % (0.0-0.4); Lymphocytes Absolute Auto 2.2 X10*3/uL (1.2-4.9); Mean Corpuscular HGB Conc 32.9 g/dl (31.0-35.0); Mean Corpuscular Hemoglobin 33.1 pg (27.0-33.0); Mean Corpuscular Volume 100.7 fL (80.0-98.0); Mean Platelet Volume 10.8 fL (9.4-12.3); Monocytes Absolute Auto 0.4 X10*3/uL (0.1-1.2); Monocytes Percent Auto 4.8 % (2-11); Neutrophils Absolute Auto 5.7 x10*3/uL (2.0-8.3); Neutrophils Percent Auto 67.7 % (45-73); Platelet Count 205 X10*3/uL (160-400); Red Blood Count 2.84 X10*6/uL (4.20-5.50); White Blood Count 8.4 X10*3/uL (4.8-10.8)
[2021-06-28 07:42] LABS: Anion Gap 11 (12-20); Blood Urea Nitrogen 17 mg/dL (9-16); Calcium 8.5 mg/dL (8.4-10.2); Carbon Dioxide 26 mmol/L (22-29); Chloride 105 mmol/L (96-108); Creatinine Clr Calc Pharmacy 46.6; Estimated Glomerular Filt Rate > 60; Glucose Random 173 mg/dL (60-115); Potassium 3.7 mmol/L (3.3-5.1); Sodium 138 mmol/L (135-145)
[2021-06-28 07:49] LABS: Glucose, Whole Blood 160 mg/dL (60-115)
[2021-06-28] MEDS: Insulin Lispro 100 UNIT/ML 3 ML VIAL SUBCUT (08:15)
[2021-06-28] MEDS: Omeprazole 20 MG CAPSULE.DR PO ×2 (08:16→23:00)
[2021-06-28] MEDS: methADONE HCl 20 MG/2 ML ORAL.CONC PO (08:16)
[2021-06-28] MEDS: Thiamine HCL 100 MG TABLET PO (08:16)
[2021-06-28] MEDS: Multivitamin TABLET 1 TAB PO (08:16)
[2021-06-28] MEDS: Gabapentin 600 MG TABLET 300 MG PO ×3 (08:16→23:01)
[2021-06-28] MEDS: 0.9 % Sodium Chloride Flush 3 ML SYRINGE IVFLUSH ×2 (08:17→17:48)
--- NOTE | 2021-06-28 09:51 | MHC.CM.PN ---
NATO ATTEMPTED TO MEET WITH PT WHO WAS SLEEPING. NATO CALLED PTS DAUGHTER/CAREGIVER, DAYSI ([phone]) WHO REPORTS SHE IS AWARE THE PT NEEDS PT AND WOULD LIKELY BENEFIT FROM STR HOWEVER THE PT IS UNWILLING TO GO. SHE REPORTS THE PT IS ALSO UNWILLING TO HAVE [facility]NA COME INTO THE HOME. DAYSI WHO IS ALSO THE PTS WOOD BORER, REPORTS SHE DOES FEEL LIKE THE PT WOULD DO OUTPATIENT PT AND SHE IS WILLING TO BRING HER. DAYSI REPORTS SHE BELIEVES THE PT HAS A HCP AT HOME NAMING HER THE AGENT. COPY REQUESTED. PT WILL DC HOME TODAY WITH RESUMPTION OF WOOD BORER AND PLAN TO ATTEND OUTPAITENT PT. DAUGHTER TO TRANSPORT
--- NOTE | 2021-06-28 10:09 | MHC.SLORD ---
Speech Language Pathology Order Status: Order received and chart reviewed. Attempted to perform a bedside swallow evaluation as ordered, however, pt unable to awaken to verbal or tactile stimuli. She briefly opened her eyes and then returned to sleep. Current diet consistency is regular solids with thin liquids. Pt has a history of dysphagia and cachexia; nutrition consult has been placed. Updated with RN who reported that pt expelled her breakfast and medications this morning. PUBLIC POLICY MEDIATOR will continue to follow pt.
--- NOTE | 2021-06-28 10:40 | PM.DS ---
DS: Providers Provider Date of Service: 07/02/21 Date of admission: 06/28/21 04:30 Primary care physician: Bri Petty MD Consults: 06/28/21 04:30 Consult to Infectious Diseases Routine Consulting Provider: Danna Ramos Reason for consultation: UTI/bacteremia DS: Diagnosis Discharge Diagnosis (1) Urinary tract infection: Status: Acute (2) Malnutrition: (3) Cachexia: (4) Diabetes: DS: Summary Hospital Course Hospital Course: Patient was seen in the ED 2 days before admission and was called back because 1/2 blood culture came positive with coag negative staph and further treatment with UTI, and during hospitalization was noted to have episodes of hypoglycemia. The blood culture was a contamination as repeat blood cultures have been negative. UTI has been treated with Ceftriaxone and ID recommends transition to oral Ceftin for 10 days. Of note patient had episodes of hypoglycemia likely from insulin and poor nutritional status--This seems to have resolved and will History of presenting illness: Chief Complaint: Positive cultures 60-year-old [place]uran-speaking female with a past medical history of hypertension, diabetes, pill induced esophagitis, peptic ulcer disease, dysphagia, cachexia, severe protein calorie malnutrition, anemia, methadone dependent presented to the hospital with a chief complaint of generalized weakness.? Patient is a poor historian.? Most of the history obtained from the patient started bedside.? Reportedly patient of presented to the hospital 2 days ago with chief complaint of generalized weakness and was noted to have UTI and was sent home on oral antibiotics; and SI patient cart a call mentioned that her blood cultures are positive and also to come back to the hospital.? After she came back from the work patient's daughter noted that the patient has drowsy and appears very tired and exhausted all like however she was in the morning.? Hence wanted to the hospital for further evaluation.? Mentioned that yesterday morning patient was alert awake and walking around the house, ate her lunch. Review of all other systems is limited as the patient is a poor historian.? Patient's daughter denies patient having any fevers.? Denies patient complaining of any chest pain palpitations.? ER course: Per ER team patient noted a abnormal UA consistent with UTI.? Given ceftriaxone.? And blood cultures final results are pending-preliminary showing Gram-positive cocci.? Admitted to the hospital for further management. Hospital course: 52-year-old female with past medical history of hypertension and diabetes who initially came into the hospital after her blood cultures from 06/26 grew 1/2 bottles positive with coagulase negative Staph.? Patient was initially going to be discharged but she appeared to be more lethargic, weak,? and her UA showed yeast.? Patient was evaluated by Infectious Disease, recommended treatment with IV antibiotics. Hemorrhagic stroke: On at around 8:00 p.m. PARKING ENFORCER was called in same patient was not and responding; when I went in to examine the patient, patient was responding to verbal stimuli, vitals are stable with blood pressure 116/62, fingerstick glucose 120; saturating 98% on room air; noted a mild left facial droop, unable to lift left upper and left lower extremities; in for any question asked patient was saying she is feeling okay. Patient's daughter at bedside who last saw her around 4:00 p.m. and mentioned that patient was doing well. Spoke to the RN for RN patient last well known was around 5:00 p.m.; per day hospitalist patient was nonfocal during the daytime. stat CT head with stroke protocol showed 3 cm intraparenchymal hemorrhage on the right basal ganglia causing distortion of the adjacent right lateral ventricle and approximately 1-2 mm leftward midline shift. Spoke to Neurosurgery Dr. Soares at [facility]-> who mentioned no neurosurgical intervention and recommended to speak to stroke neurology spoke to from Neurology who recommended admission to the [facility] ICU after discussing about the patient details. Spoke to at [facility] Neuro Critical [facility]- accepted the patient. Patient was initially drowsy but later on her mental status gradually improving and following commands and understanding the conversations with the daughter. Holding iv MANNITOL per discussion with Dr. Amaya. neuro checks patient started on Keppra given patient noted to have right upper extremity twitching concerning for seizures. Around 9:00 a.m. patient complained of chest pain which quickly resolved. EKG was nonischemic. Other Conditions pt being treated since admission: Bacteremia--BCx from 06/26, 1/2 bottles growing coag negative staph - likely contaminant repeat BCx from 06/28 negative x 48 hours UTI UCx >100,000 mixed iain seen by ID,? rec ceftriaxone and abx for a total of 10 days. this can be switched to Ceftin on discharge hypoglycemia--no further episode Yeast UTI - most likely contaminate - ID recommends no tx KAYLEIGH - resolved - most likely 2/2 dehydration Severe protein calorie malnutrition:? see formal nutrition note supplements added Diabetes with hypoglycemia--no further hypoglycemia, History of esophagitis/gastric ulcer:? continue PPI pancreatic insufficiency/chronic pancreatitis continue Creon History of dysphagia:? seen by speech, [facility] diet remote h/o opiate abuse continue home dose of methadone Dispo:[facility] [place] ICU Time Spent with Patient Time attestation: Total time spent providing and/or coordinating discharge services: Discharge coordination time: Greater than 30 minutes Quality: Stroke Does the patient have a stroke diagnosis?: No Physical Exam Vital Signs: Vital Signs: Last Vital Signs Temp 98.2 F 06/28/21 00:22 Pulse 62 06/28/21 07:42 Resp 12 06/28/21 07:42 BP 109/72 06/28/21 07:42 Pulse Ox 100 06/28/21 07:42 Body Mass Index 15.5 DS: Data Data Completed and Pending Completed studies during hospitalization [Text1]: Procedures Excision of Duodenum, Via Natural or Artificial Opening Endoscopic, Diagnostic (01/09/21) Excision of Esophagogastric Junction, Via Natural or Artificial Opening Endoscopic, Diagnostic (01/09/21) Excision of Stomach, Pylorus, Via Natural or Artificial Opening Endoscopic, Diagnostic (01/09/21) Labs on day of discharge: Laboratory Results - last 24 hr 06/27/21 06/27/21 06/28/21 21:14 23:49 00:03 WBC 9.7 RBC 3.16 L Hgb 10.6 L Hct 32.1 L MCV 101.6 H MCH 33.5 H MCHC 33.0 RDW 14.0 Plt Count 205 MPV 10.4 Immature Gran % (Auto) 0.3 Neut % (Auto) 76.0 H Lymph % (Auto) 18.6 L Power % (Auto) 4.4 Eos % (Auto) 0.3 Baso % (Auto) 0.4 Lymph # (Auto) 1.8 Power # (Auto) 0.4 Eos # (Auto) 0.0 Baso # (Auto) 0.0 Abs Immat Gran (auto) 0.03 Absolute Neuts (auto) 7.4 Absolute Nucleated RBC 0.000 Nucleated RBC % (auto) 0.0 VBG pH VBG pCO2 VBG pO2 VBG HCO3 VBG O2 Saturation VBG Base Excess Sodium Potassium Chloride Carbon Dioxide Anion Gap BUN Creatinine Estim Creat Clear Calc Estimated GFR POC Glucose 405 H* Random Glucose Fasting Glucose Lactic Acid Calcium Total Bilirubin AST ALT Alkaline Phosphatase Total Protein Albumin Urine Color Urine Appearance Urine pH Ur Specific [place] Urine Protein Urine Glucose (UA) Urine Ketones Urine Blood Urine Nitrite Ur Leukocyte Esterase Urine RBC Urine WBC Urine WBC Clumps Ur Squamous Epith Cells Urine Bacteria Urine Mucus Urine Yeast COVID-19 (STEPHANI) Negative COVID-19 [employer] See Note 06/28/21 06/28/21 06/28/21 00:03 00:03 00:17 WBC RBC Hgb Hct MCV MCH MCHC RDW Plt Count MPV Immature Gran % (Auto) Neut % (Auto) Lymph % (Auto) Power % (Auto) Eos % (Auto) Baso % (Auto) Lymph # (Auto) Power # (Auto) Eos # (Auto) Baso # (Auto) Abs Immat Gran (auto) Absolute Neuts (auto) Absolute Nucleated RBC Nucleated RBC % (auto) VBG pH VBG pCO2 VBG pO2 VBG HCO3 VBG O2 Saturation VBG Base Excess Sodium 133 L Potassium 4.4 Chloride 99 Carbon Dioxide 25 Anion Gap 13 BUN 19 H Creatinine 1.43 H Estim Creat Clear Calc 26.1 Estimated GFR 38 POC Glucose Random Glucose Not Reportable Fasting Glucose 505 H* Lactic Acid 0.8 Calcium 9.2 Total Bilirubin 0.3 AST 20 ALT 28 Alkaline Phosphatase 200 H Total Protein 6.6 Albumin 3.5 Urine Color STRAW Urine Appearance HAZY Urine pH 6.0 Ur Specific [place] 1.010 Urine Protein NEG Urine Glucose (UA) >=1000 H Urine Ketones NEG Urine Blood TRACE Urine Nitrite NEG Ur Leukocyte Esterase 1+ H Urine RBC 0-2 Urine WBC 76-150 H Urine WBC Clumps NOTED Ur Squamous Epith Cells 1+ Urine Bacteria NONE Urine Mucus TRACE Urine Yeast 3+ COVID-19 (STEPHANI) COVID-19 [employer] 06/28/21 06/28/21 06/28/21 00:43 01:25 02:59 WBC RBC Hgb Hct MCV MCH MCHC RDW Plt Count MPV Immature Gran % (Auto) Neut % (Auto) Lymph % (Auto) Power % (Auto) Eos % (Auto) Baso % (Auto) Lymph # (Auto) Power # (Auto) Eos # (Auto) Baso # (Auto) Abs Immat Gran (auto) Absolute Neuts (auto) Absolute Nucleated RBC Nucleated RBC % (auto) VBG pH 7.40 VBG pCO2 47 VBG pO2 57 VBG HCO3 30 H VBG O2 Saturation 83.0 VBG Base Excess 4.9 Sodium Potassium Chloride Carbon Dioxide Anion Gap BUN Creatinine Estim Creat Clear Calc Estimated GFR POC Glucose 319 H 215 H Random Glucose Fasting Glucose Lactic Acid Calcium Total Bilirubin AST ALT Alkaline Phosphatase Total Protein Albumin Urine Color Urine Appearance Urine pH Ur Specific [place] Urine Protein Urine Glucose (UA) Urine Ketones Urine Blood Urine Nitrite Ur Leukocyte Esterase Urine RBC Urine WBC Urine WBC Clumps Ur Squamous Epith Cells Urine Bacteria Urine Mucus Urine Yeast COVID-19 (STEPHANI) [employer] 06/28/21 06/28/21 06/28/21 06:44 06:44 07:41 WBC 8.4 RBC 2.84 L Hgb 9.4 L Hct 28.6 L MCV 100.7 H MCH 33.1 H MCHC 32.9 RDW 14.0 Plt Count 205 MPV 10.8 Immature Gran % (Auto) 0.4 Neut % (Auto) 67.7 Lymph % (Auto) 26.0 Power % (Auto) 4.8 Eos % (Auto) 0.7 Baso % (Auto) 0.4 Lymph # (Auto) 2.2 Power # (Auto) 0.4 Eos # (Auto) 0.1 Baso # (Auto) 0.0 Abs Immat Gran (auto) 0.03 Absolute Neuts (auto) 5.7 Absolute Nucleated RBC 0.000 Nucleated RBC % (auto) 0.0 VBG pH VBG pCO2 VBG pO2 VBG HCO3 VBG O2 Saturation VBG Base Excess Sodium 138 Potassium 3.7 Chloride 105 Carbon Dioxide 26 Anion Gap 11 L BUN 17 H Creatinine 0.80 Estim Creat Clear Calc 46.6 Estimated GFR > 60 POC Glucose 160 H Random Glucose 173 H Fasting Glucose Lactic Acid Calcium 8.5 D Total Bilirubin AST ALT Alkaline Phosphatase Total Protein Albumin Urine Color Urine Appearance Urine pH Ur Specific [place] Urine Protein Urine Glucose (UA) Urine Ketones Urine Blood Urine Nitrite Ur Leukocyte Esterase Urine RBC Urine WBC Urine WBC Clumps Ur Squamous Epith Cells Urine Bacteria Urine Mucus Urine Yeast COVID-19 (STEPHANI) [employer] Discharge Plan Discharge Anticipated Discharge Date/Time: 07/02/21 22:17 Patient Disposition: Home Health Service Discharge Diagnosis: Intracranial hemorrhage Referrals: Bri Vasques MD [Primary Care Provider] - 1 Week Discharge Medications: New levetiracetam in NaCl (iso-os) 1,000 mg/100 mL Piggyback 1,000 mg IV Q12H Qty: 1000 RF: 0 insulin lispro [Humalog U-100 Insulin] 100 unit/mL Solution See Protocol sliding scale dose subcut TIDAC Qty: 10 RF: 0 ceftriaxone 1 gram Recon Soln 1 g IV Q24H Qty: 5 RF: 0 Continued (DME) adult diapers briefs x-small See Rx Instructions .Route .MEDSUPPLY Qty: 120 RF: 11 Creon 6,000-19,000 -30,000 unit capsule,delayed release(DR/EC) 3 cap PO TID 30 Days Qty: 270 RF: 3 ascorbic acid (vitamin C) [Vitamin C] 500 mg tablet 500 mg PO DAILY Qty: 30 RF: 2 pyridoxine (vitamin B6) 100 mg tablet 50 mg PO DAILY Qty: 30 RF: 1 omeprazole 20 mg capsule,delayed release(DR/EC) 20 mg PO BID 30 Days Qty: 60 RF: 3 acetaminophen 325 mg tablet 650 mg PO Q6H PRN (Reason: pain) Qty: 120 RF: 0 ferrous sulfate 325 mg (65 mg iron) tablet 325 mg PO Q OTHER DAY 30 Days Qty: 15 RF: 2 gabapentin 600 mg Tablet 600 mg PO TID RF: 0 thiamine HCl (vitamin B1) 100 mg Tablet 100 mg PO DAILY RF: 0 cholecalciferol (vitamin D3) 25 mcg (1,000 unit) Tablet 25 mcg PO DAILY RF: 0 multivitamin with minerals Tablet 1 tab PO DAILY RF: 0 (DME) commode Kit See Rx Instructions .ROUTE .MEDSUPPLY Qty: 1 RF: 0 methadone 10 mg Tablet 18 mg PO DAILY RF: 0 Farxiga 10 mg tablet 1 tab PO DAILY RF: 0 Discontinued Humalog KwikPen Insulin 200 unit/mL (3 mL) Insulin Pen 4 unit SUBCUT TIDAC PRN (Reason: Hyperglycemia) RF: 0 insulin degludec 100 unit/mL Solution 5 unit SUBCUT BEDTIME RF: 0 cephalexin 500 mg capsule 500 mg PO QID 7 Days Qty: 28 RF: 0 Discharge Orders: Discharge Order (Routine); Ordered 07/02/21 Ordered By: Martínez Rodríguez Diet: advance to usual diet and diabetic diet Activity on Discharge: As tolerated Stand Alone Forms: Patient Portal Discharge page Care Plan Goals: assessment and management of intracranial hemorrhoage Health Concerns: Intracranial hemorrhage Plan of Treatment: Transfer to [facility] for management of intracranial hemorrhage Assessment: As above Discharge Date/Time: 07/03/21 00:05
[2021-06-28 12:14] LABS: Glucose, Whole Blood 70 mg/dL (60-115)
--- NOTE | 2021-06-28 12:59 | PM.EVENT ---
Event Note Date of Service: 06/28/21 Event Note: Patient seen an examined and discussed with daughter. Admitted this morning for UTI and lethargy, seen in ED 2 days earlier and found UTI and was called to come back because of 1/2 coag negative staph but then daughter reported that she's been lethargic. Vitals are normal, WBC is normal. Micro shows coag negative from blood culture on 06/26. She is sleepy but easily aroused and answers apropriately. CV RRR, lungs CTA, Neuro intact, no rash. UA shows yeast, will treat with diflucan. PT saw her and recommend STR but she continues to decline. Will observe overnight and discharge in the morning if improving.
[2021-06-28 16:37] LABS: Glucose, Whole Blood 69 mg/dL (60-115)
--- NOTE | 2021-06-28 18:30 | PC.NURSE ---
pt awake, supper given, meds given as documented. daughter was in to visit this afternoon. pt denies chest pain/sob/nausea. no fever, no cough. pt resting quietly, no apparent distress noted.
--- NOTE | 2021-06-28 20:06 | PC.NURSE ---
REPORT GIVEN TO FLOOR. PT AWAITING FOR TRANSPORT TO FLOOR.
--- NOTE | 2021-06-28 22:19 | W.PM.IDCN ---
History of Present Illness Data of Consult Service Date: 06/28/21 Requesting physician: Martínez Rodríguez Primary Care Provider: Bri Petty MD [facility] Reason for consult: weakness She presents with extreme weakness and was told to come back for bactermia. She has no fever or chills Blood culture coagulase negative staph She has pyuria Review of Systems Review of Systems: Yes all other systems are reviewed and are negative PMFSH Past Medical History Medical History Anemia Diabetes Hypertension Methadone dependence Mild emphysema Thiamine deficiency Urge urinary incontinence Family History Family History Father Throat cancer Mother No problems noted. Family history: reviewed and not pertinent Surgical History Surgical History History of esophagogastroduodenoscopy (EGD) Social History Social History Household Members: Children Household Members Other:: Daughter Housing: Apartment Housing Other:: [facility] Do you presently have visiting nurse or other home services: No Alcohol intake: former Year quit: 2019 Patient Tobacco Use Status: Current everyday Tobacco user Tobacco use type: Cigarette e-Cigarette/Vaping Use: Never Used Second Hand Smoke Exposure: Yes Substance Use Type: Heroin and Marijuana Advance Directives: No Advance Directives Information Provided: No service: No Current occupational status: disabled Meds Allergies Allergy/AdvReac Type Severity Reaction Status Date / Time No Known Allergies Allergy Verified 06/27/21 20:30 Active Medications: Current Medications Acetaminophen (Acetaminophen 325 Mg Tablet) 650 mg PO Q6H PRN PRN Reason: Pain, Mild (Pain Scale 1-3) Dextrose (Dextrose 50 % 25 Gm/50 Ml Vial) 25 gm IVPUSH Q15M PRN; Protocol PRN Reason: per Hypoglycemia Standing Ord. Gabapentin (Gabapentin 600 Mg Tablet) 300 mg PO TID [facility] Last Admin: 06/28/21 17:47 Dose: 300 mg Documented by: Glucose (Glucose Gel 15 Gm Gel..Gram.) 15 gm PO Q15M PRN; Protocol PRN Reason: per Hypoglycemia Standing Ord. Ceftriaxone Sodium 1 gm/ (Sodium Chloride) 50 mls @ 100 mls/hr IV Q24H [facility] Insulin Glargine (Insulin Glargine,Hum.Rec.Anlog 100 Unit/Ml 10 Ml Vial) 10 unit SUBCUT BEDTIME [facility] Insulin Human Lispro (Insulin Lispro 100 Unit/Ml 3 Ml Vial) 0.1 - 10 unit SUBCUT QIDACHS [facility]; Protocol Last Admin: 06/28/21 16:47 Dose: Not Given Documented by: Melatonin (Melatonin 3 Mg Tablet) 6 mg PO BEDTIME PRN PRN Reason: Insomnia Methadone HCl (Methadone Hcl 20 Mg/2 Ml Oral.Conc) 20 mg PO DAILY [facility] Last Admin: 06/28/21 08:16 Dose: 20 mg Documented by: Multivitamins/Vitamin C (Multivitamin Tablet) 1 tab PO DAILY [facility] Last Admin: 06/28/21 08:16 Dose: 1 tab Documented by: Omeprazole (Omeprazole 20 Mg Capsule.) 20 mg PO BID [facility] Last Admin: 06/28/21 08:16 Dose: 20 mg Documented by: Senna (Sennosides 8.6 Mg Tablet) 17.2 mg PO BEDTIME PRN PRN Reason: Constipation Sodium Chloride (0.9 % Sodium Chloride Flush 3 Ml Syringe) 3 ml IVFLUSH QSHIFT [facility] Last Admin: 06/28/21 17:48 Dose: 3 ml Documented by: Thiamine HCl (Thiamine Hcl 100 Mg Tablet) 100 mg PO DAILY [facility] Last Admin: 06/28/21 08:16 Dose: 100 mg Documented by: Home Medications Medication Instructions Recorded Confirmed Last Taken Type cholecalciferol (vitamin D3) 25 25 mcg PO DAILY 01/09/21 06/28/21 06/24/21 History mcg (1,000 unit) tablet gabapentin 600 mg tablet 600 mg PO TID 01/09/21 06/28/21 06/24/21 History insulin degludec 100 unit/mL 5 unit SUBCUT BEDTIME 01/09/21 06/28/21 06/24/21 History subcutaneous solution insulin lispro 200 unit/mL (3 mL) 4 unit SUBCUT TIDAC PRN 01/09/21 06/28/21 06/24/21 History subcutaneous pen (Humalog KwikPen U-200 Insulin) multivitamin with minerals 1 tab PO DAILY 01/09/21 06/28/21 06/24/21 History thiamine HCl (vitamin B1) 100 mg 100 mg PO DAILY 01/09/21 06/28/21 06/24/21 History tablet dapagliflozin 10 mg tablet 1 tab PO DAILY 06/26/21 06/28/21 06/24/21 History ([facility]) methadone 10 mg tablet 18 mg PO DAILY 06/26/21 06/28/21 Unknown History Physical Exam Vital Signs: Vital Signs: Last Vital Signs Temp 98 F 06/28/21 20:00 Pulse 68 06/28/21 20:00 Resp 18 06/28/21 20:00 BP 150/90 H 06/28/21 20:00 Pulse Ox 96 06/28/21 20:00 Body Mass Index 15.5 Const: General: cooperative Eyes: General: appearance normal, both eyes and all related structures Resp: Effort & Inspection: normal respiratory effort Cardio: Rate: regular rate Rhythm: regular rhythm GI: Palpation (GI): Soft to palpation and nontender Extrem: General: Yes normal to inspection Results Labs CBC & Chem 7: 06/28/21 06:44 06/28/21 06:44 Labs: Short CBC 06/28/21 06/28/21 Range/Units 00:03 06:44 WBC 9.7 8.4 (4.8-10.8) X10*3/uL Hgb 10.6 L 9.4 L (12.0-16.0) g/dl Hct 32.1 L 28.6 L (37.0-47.0) % Plt Count 205 205 (160-400) X10*3/uL BMP 06/28/21 06/28/21 00:03 06:44 Sodium 133 L 138 Potassium 4.4 3.7 Chloride 99 105 Carbon Dioxide 25 26 BUN 19 H 17 H Creatinine 1.43 H 0.80 Calcium 9.2 8.5 D Liver Function 06/28/21 Range/Units 00:03 Total Bilirubin 0.3 (0.0-1.0) mg/dL AST 20 (5-31) U/L ALT 28 (0-31) U/L Alkaline Phosphatase 200 H (39-117) U/L Albumin 3.5 (3.5-5.0) g/dL Urine 06/28/21 Range/Units 00:17 Urine Color STRAW Urine Appearance HAZY Urine pH 6.0 (5.0-8.0) Ur Specific [place] 1.010 (1.005-1.025) Urine Protein NEG (NEG-TRACE) MG/DL Urine Glucose (UA) >=1000 H (NEG) MG/DL Assessment and Plan (1) Urinary tract infection: Status: Acute Culture unremarkable so far She has weakness Blood culture is contaminant (2) Dysphagia: Status: Acute Would continue Ceftriaxone for urine even if negative for 10 days cover possible proximal UTI ( not growing) and can change to po Ceftin total 10 days
[2021-06-28 22:50] LABS: Glucose, Whole Blood 139 mg/dL (60-115)
[2021-06-28] MEDS: Insulin Glargine,Hum.rec.anlog 100 UNIT/ML 10 ML VIAL 10 UNIT SUBCUT (23:01)
[2021-06-29] MEDS: 0.9 % Sodium Chloride Flush 3 ML SYRINGE IVFLUSH ×3 (00:53→16:58)
[2021-06-29 03:15] VITALS: BP 137/96; PULSE 68; RESP 15; TEMP 36.5; O2SAT 98
[2021-06-29] MEDS: cefTRIAXone sodium 1 GM in 0.9 % Sodium Chloride 50 ML IV (04:12)
[2021-06-29 05:24] LABS: Glucose, Whole Blood 32 mg/dL (60-115)
[2021-06-29 05:48] LABS: Glucose, Whole Blood 188 mg/dL (60-115)
[2021-06-29 06:05] LABS: Glucose, Whole Blood 189 mg/dL (60-115)
[2021-06-29 07:23] LABS: Glucose, Whole Blood 174 mg/dL (60-115)
[2021-06-29 07:56] VITALS: BP 170/82; PULSE 76; RESP 18; TEMP 36.7; O2SAT 94
[2021-06-29] MEDS: methADONE HCl 20 MG/2 ML ORAL.CONC PO (08:33)
[2021-06-29] MEDS: Multivitamin TABLET 1 TAB PO (08:33)
[2021-06-29] MEDS: Gabapentin 600 MG TABLET 300 MG PO ×3 (08:34→21:17)
[2021-06-29] MEDS: Omeprazole 20 MG CAPSULE.DR PO ×2 (08:36→21:17)
[2021-06-29] MEDS: Thiamine HCL 100 MG TABLET PO (08:37)
[2021-06-29 11:21] LABS: Glucose, Whole Blood 263 mg/dL (60-115)
[2021-06-29 11:41] VITALS: BP 150/92; PULSE 75; RESP 16; TEMP 36.3; O2SAT 100
[2021-06-29] MEDS: Insulin Lispro 100 UNIT/ML 3 ML VIAL SUBCUT (11:42)
[2021-06-29 11:45] LABS: Glucose, Whole Blood 226 mg/dL (60-115)
--- NOTE | 2021-06-29 14:30 | HO.PM.IMPN ---
Subjective Subjective Date of Service: 06/29/21 Interval History: patient seen and examined at bedside, has no acute complaints. Denies any chest pain, no abdominal pain, denies any urinary symptoms. No lower extremity edema. No fever or chills overnight. patient was hypoglycemic overnight with glucose of 32 Review of Systems Review of Systems: Yes all other systems are reviewed and are negative Physical Exam Vital Signs: Vital Signs: Last Vital Signs Temp 97.4 F 06/29/21 11:41 Pulse 75 06/29/21 11:41 Resp 16 06/29/21 11:41 BP 150/92 H 06/29/21 11:41 Pulse Ox 100 06/29/21 11:41 Body Mass Index 15.5 Const: General: cooperative and no acute distress Orientation/consciousness: patient oriented x3 Resp: Effort & Inspection: normal respiratory effort Auscultation: clear to auscultation bilaterally Cardio: Rate: regular rate Rhythm: regular rhythm GI: Palpation (GI): Soft to palpation Auscultation: normal bowel sounds Neuro: General: patient oriented x3 Extrem: General: Yes normal to inspection and Yes no pedal edema Objective Data Active Medications Acetaminophen (Acetaminophen 325 Mg Tablet) 650 mg PO Q6H PRN PRN Reason: Pain, Mild (Pain Scale 1-3) Dextrose (Dextrose 50 % 25 Gm/50 Ml Vial) 25 gm IVPUSH Q15M PRN; Protocol PRN Reason: per Hypoglycemia Standing Ord. Last Admin: 06/29/21 05:26 Dose: 25 gm Documented by: MICHI Gabapentin (Gabapentin 600 Mg Tablet) 300 mg PO TID [facility] Last Admin: 06/29/21 08:34 Dose: 300 mg Documented by: KEITH Glucose (Glucose Gel 15 Gm Gel..Gram.) 15 gm PO Q15M PRN; Protocol PRN Reason: per Hypoglycemia Standing Ord. Ceftriaxone Sodium 1 gm/ (Sodium Chloride) 50 mls @ 100 mls/hr IV Q24H [facility] Last Infusion: 06/29/21 04:59 Dose: 0 mls/hr Documented by: MICHI Insulin Glargine (Insulin Glargine,Hum.Rec.Anlog 100 Unit/Ml 10 Ml Vial) 10 unit SUBCUT BEDTIME [facility] Last Admin: 06/28/21 23:01 Dose: 10 unit Documented by: STEFAN Insulin Human Lispro (Insulin Lispro 100 Unit/Ml 3 Ml Vial) 0.1 - 10 unit SUBCUT QIDACHS [facility]; Protocol Last Admin: 06/29/21 11:42 Dose: 6 unit Documented by: KEITH Melatonin (Melatonin 3 Mg Tablet) 6 mg PO BEDTIME PRN PRN Reason: Insomnia Methadone HCl (Methadone Hcl 20 Mg/2 Ml Oral.Conc) 20 mg PO DAILY [facility] Last Admin: 06/29/21 08:33 Dose: 20 mg Documented by: KEITH Multivitamins/Vitamin C (Multivitamin Tablet) 1 tab PO DAILY [facility] Last Admin: 06/29/21 08:33 Dose: 1 tab Documented by: KEITH Omeprazole (Omeprazole 20 Mg Capsule.Dr) 20 mg PO BID [facility] Last Admin: 06/29/21 08:36 Dose: 20 mg Documented by: KEITH Senna (Sennosides 8.6 Mg Tablet) 17.2 mg PO BEDTIME PRN PRN Reason: Constipation Sodium Chloride (0.9 % Sodium Chloride Flush 3 Ml Syringe) 3 ml IVFLUSH QSHIFT [facility] Last Admin: 06/29/21 08:33 Dose: 3 ml Documented by: KEITH Thiamine HCl (Thiamine Hcl 100 Mg Tablet) 100 mg PO DAILY [facility] Last Admin: 06/29/21 08:37 Dose: 100 mg Documented by: KEITH Labs CBC & Chem 7: 06/28/21 06:44 06/28/21 06:44 Labs: Laboratory Results - last 24 hr 06/28/21 06/28/21 06/29/21 16:33 22:47 05:19 POC Glucose 69 139 H 32 L* 06/29/21 06/29/21 06/29/21 05:45 06:02 07:14 POC Glucose 188 H 189 H 174 H 06/29/21 06/29/21 11:16 11:39 POC Glucose 263 H 226 H Microbiology Microbiology Results: Microbiology 06/28/21 Unknown Urine Culture - Preliminary Urine Catheterized - Flores Catheter Culture in progress. 06/28/21 00:03 Blood Culture - Preliminary Blood - Venous No growth after 24 hours. 06/28/21 00:03 Blood Culture - Preliminary Blood - Venous No growth after 24 hours. Assessment and Plan (1) Urinary tract infection: Status: Acute (2) Dysphagia: Status: Acute (3) Bacteremia: Status: Acute (4) Hypoglycemia: Status: Acute Assessment and Plan: this is a 52-year-old female with past medical history of hypertension and diabetes who initially came into the hospital after her blood cultures from 06/26 grew 1/2 bottles positive with coagulase negative Staph. Patient was initially going to be discharged but she appeared to be more lethargic, weak, and her UA showed yeast. Patient was evaluated by Infectious Disease, recommended treatment with IV antibiotics. # Bacteremia - 1/2 bottles showed Gram-positive coags negative staff from 06/26 - repeat cultures pending - infectious disease recommends ceftriaxone and abx for a total of 10 days. this can be switched to Ceftin once patient okay for discharge - patient remains afebrile, no leukocytosis - will follow cultures # hypoglycemia - Patient had hypoglycemia overnight with a glucose of 32 - upon review of her home medications, patient uses 5 units of degludec at home but was given 10 units of lantus. She also receivedreceived about 20 units of regular insulin while in the ED due to her hyperglycemia on presentation - at this time will stop long acting insulin given her low fasting glucose as well as the small amount of tresiba she was on - continue low-dose sliding scale insulin - diabetic diet - if her fasting insulin is higher in AM, consider lantuis at 70% of tresiba dosing - POC QIDAC # Yeast UTI - most likely contaminate - ID recommends no tx - continue ceftriaxone as mentioned above # KAYLEIGH - resolved - most likely 2/2 dehydration - follow bmp # Severe protein calorie malnutrition:? pending Nutrition consult. # History of esophagitis/gastric ulcer:? continue PPI History of dysphagia:? Speech and swallow evalpending DVT ppx: lovenox Quality Stroke Does the patient have a stroke diagnosis?: No VTE Prior VTE?: No VTE Risk Level:: Medical - moderate - high VTE Device Contraindication: N/A - Device Ordered VTE Drug Contraindication: Treatment Not Indicated
[2021-06-29 15:58] VITALS: BP 133/93; PULSE 78; RESP 18; TEMP 36.9; O2SAT 96
[2021-06-29 16:06] LABS: Glucose, Whole Blood 149 mg/dL (60-115)
[2021-06-29] MEDS: Heparin Sodium,Porcine 5,000 UNIT/ML VIAL 5000 UNIT SUBCUT (16:54)
[2021-06-29 19:08] VITALS: BP 132/80; PULSE 76; RESP 18; TEMP 36.8; O2SAT 96
[2021-06-29 19:52] LABS: Glucose, Whole Blood 225 mg/dL (60-115)
[2021-06-29 23:11] VITALS: BP 125/83; PULSE 73; RESP 16; TEMP 36.6; O2SAT 97
[2021-06-30] MEDS: 0.9 % Sodium Chloride Flush 3 ML SYRINGE IVFLUSH ×3 (02:29→15:56)
[2021-06-30] MEDS: Heparin Sodium,Porcine 5,000 UNIT/ML VIAL 5000 UNIT SUBCUT ×2 (02:29→15:56)
[2021-06-30] MEDS: cefTRIAXone sodium 1 GM in 0.9 % Sodium Chloride 50 ML IV (03:02)
[2021-06-30 03:28] VITALS: BP 111/65; PULSE 67; RESP 16; O2SAT 95
[2021-06-30 06:49] VITALS: BP 100/69; PULSE 72; RESP 18; TEMP 36.1; O2SAT 98
[2021-06-30 07:15] LABS: Glucose, Whole Blood 158 mg/dL (60-115)
[2021-06-30] MEDS: Omeprazole 20 MG CAPSULE.DR PO ×2 (08:03→21:33)
[2021-06-30] MEDS: Gabapentin 600 MG TABLET 300 MG PO ×2 (08:03→15:56)
[2021-06-30] MEDS: Multivitamin TABLET 1 TAB PO (08:03)
[2021-06-30] MEDS: methADONE HCl 20 MG/2 ML ORAL.CONC PO (08:03)
[2021-06-30] MEDS: Thiamine HCL 100 MG TABLET PO (08:03)
[2021-06-30] MEDS: Insulin Lispro 100 UNIT/ML 3 ML VIAL SUBCUT ×2 (08:03→13:17)
[2021-06-30 08:41] LABS: Hematocrit 31.3 % (37.0-47.0); Hemoglobin 10.2 g/dl (12.0-16.0); Mean Corpuscular HGB Conc 32.6 g/dl (31.0-35.0); Mean Corpuscular Hemoglobin 33.3 pg (27.0-33.0); Mean Corpuscular Volume 102.3 fL (80.0-98.0); Mean Platelet Volume 10.5 fL (9.4-12.3); Platelet Count 228 X10*3/uL (160-400); Red Blood Count 3.06 X10*6/uL (4.20-5.50); Red Cell Distribution Width 13.8 % (11.0-16.0); White Blood Count 6.6 X10*3/uL (4.8-10.8)
[2021-06-30 08:54] LABS: Anion Gap 12 (12-20); Blood Urea Nitrogen 18 mg/dL (9-16); Calcium 8.8 mg/dL (8.4-10.2); Carbon Dioxide 25 mmol/L (22-29); Chloride 103 mmol/L (96-108); Creatinine Clr Calc Pharmacy 43.9; Estimated Glomerular Filt Rate > 60; Glucose Random 205 mg/dL (60-115); Potassium 4.4 mmol/L (3.3-5.1); Sodium 136 mmol/L (135-145)
--- NOTE | 2021-06-30 09:33 | MHC.SL.SWA ---
Speech Pathologist Impression: Risk of Aspiration Oral Phase Dysphagia Risk of Aspiration Due to: Poor PO Intake Dysphasia Diet Status: Downgrade Liquid Consistency and Strategies for Safe Swallow: Liquid Intake Recommendation: Thin Liquid Intake Strategies: Small Sips No Straws Solid Food Consistency: Dietary Recommendations: Grnd/Mech Altered (NDD2) Additional Modifications to Solid Foods: extra sauce/gravy on meat. Oral Medication Intake: Whole with Liquid Compensatory Strategies and Precautions to be Taken for Safe Swallow: Sitting Upright (90 deg) Liquids from Cup Small Bites and Sips Alternate Liquids/Solids Supervision While Eating and Drinking for Safe Swallow: Intermittent Supervision Foods to Avoid: dry, hard, sticky solids Recommendation for Speech: Inpatient Speech Therapy Comment: Pt admitted with a UTI and has a history of dysphagia and cachexia. She reported a baseline diet of ground/soft solids at home due to lack of upper dentition. Pt with sparse, natural lower dentition in fair condition. Pt unable to masticate regular consistency solids when evaluated 06/30. Updated with RN and RD re: recommended diet of NDD2 GROUND/MECHANICALLY ALTERED solids and THIN liquids. Pt would benefit from a dietary consult due to history of cachexia. Pt continues to present as significantly malnourished. RD notified. ACTIVITY ASSISTANT will continue to follow pt throughout her hospitalization. Frequency/Duration: 1x/day M-F during pt's hospitalization Offal Worker Clinican/Clinical Fellow: No Supervisory Statement: I have reviewed and agree with the student/clinical fellow's documentation: N/A Speech Language Pathologist: Hina Hillman M.A., [facility]-ACTIVITY ASSISTANT
[2021-06-30 11:05] VITALS: BP 152/90; PULSE 72; RESP 18; TEMP 36.6; O2SAT 100
[2021-06-30 11:26] LABS: Glucose, Whole Blood 282 mg/dL (60-115)
[2021-06-30 11:26] LABS: Glucose, Whole Blood 289 mg/dL (60-115)
--- NOTE | 2021-06-30 12:11 | MHC.CLN ---
NUTRITION CONSULT NUTRITION CONSULT DUE TO MALNUTRITION. DAUGHTER PRESENT AT VISIT. PATIENT SHOWS FAVORABLE WEIGHT GAIN X 5 MONTHS OF 20.5%. DAUGHTER REPORTS THAT SHE AND PATIENT HAD BEEN LIVING TOGETHER AND PATIENT HAD BEEN EATING. RECENT POOR INTAKE REPORTED. BMI=15.5. DX MALNUTRITION. PER NUTRITION ASSESSMENT, SEVERE MALNUTRITION IN THE CONTEXT OF CHRONIC ILLNESS. ADDING GLUCERNA TID TO PROVIDE ADDITIONAL 710 KCAL, 30 G PROTEIN.
[2021-06-30 12:19] VITALS: BMI 15.5
--- NOTE | 2021-06-30 14:51 | MHC.CM.PN ---
Addendum entered by Shandra Troncoso RN 06/30/21 15:05: Asked patient if she's agreeable to staff planning discharge with Marilynn, she states she prefers we plan directly with her using an interpreter translator. Original Note: Met with patient and her daughter, Marilynn using sign language interpreter,. Pateint alert, oriented to person and place. Stated date as 07/01/20, but was not surprised to learn it was 2020. She is oriented to situation, stating she was brought to hospital for weakness. Patient recently moved from [facility] with another daughter and both are staying with Marilynn in a 2 story home. The other daughter is disabled and cares for patient, but Mehdi brought them both to this area so she can also assist with care. She is looking for apartment for them with assistance from [employer] [facility] in [place]. Tamiko, patient stays on first floor, has a commode at bedside and using wipes for cleaning up. Patient has a walker, but states she only uses walker outside. Both daughters assist with cooking and cleaning. Erlinda provides transportation. Patient was vaccinated for Covid-19 on 06/05/21 and 06/26/21. Marilynn will bring in Vaccine card to be copied and placed in chart. Discussed PT recommendation for STR. Patient reluctant, but agreeable to STR for strengthening, then DC back home with her family. They prefer SNF in [place] but also agreeable to referral to [facility], where they have Malagasy speaking staff. Referrals to [facility], [facility], and [facility]. DC pending
[2021-06-30 15:58] VITALS: BP 102/84; PULSE 86; RESP 15; TEMP 36.6; O2SAT 96
[2021-06-30 16:35] LABS: Glucose, Whole Blood 39 mg/dL (60-115)
[2021-06-30 17:06] LABS: Glucose, Whole Blood 173 mg/dL (60-115)
--- NOTE | 2021-06-30 17:07 | P.PNIM_ITS ---
Subjective Subjective Date of Service: 06/30/21 Interval History: seen and examined this morning no events overnight no complaints this morning Review of Systems Review of Systems: Yes all other systems are reviewed and are negative Constitutional Constitutional: Denies chills and Denies fever(s) Cardiovascular Cardiovascular: Denies chest pain Respiratory Respiratory: Denies cough Gastrointestinal Gastrointestinal: Denies abdominal pain Physical Exam Vital Signs: Vital Signs: Last Vital Signs Temp 98 F 06/30/21 15:58 Pulse 86 06/30/21 15:58 Resp 15 06/30/21 15:58 BP 102/84 06/30/21 15:58 Pulse Ox 96 06/30/21 15:58 Body Mass Index 15.5 Const: General: comfortable, no acute distress, alert and awake Nutritional Appearance: cachectic HENMT: Head: Yes normocephalic and Yes atraumatic Eyes: Sclerae: sclerae normal Resp: Effort & Inspection: normal respiratory effort and no respiratory distress Cardio: Rate: regular rate Rhythm: regular rhythm GI: Palpation (GI): Soft to palpation and nontender Neuro: Cranial nerves: Yes CN's II-XII intact bilaterally and Yes Bilaterally intact EOM present Objective Data Active Medications Acetaminophen (Acetaminophen 325 Mg Tablet) 650 mg PO Q6H PRN PRN Reason: Pain, Mild (Pain Scale 1-3) Dextrose (Dextrose 50 % 25 Gm/50 Ml Vial) 25 gm IVPUSH Q15M PRN; Protocol PRN Reason: per Hypoglycemia Standing Ord. Last Admin: 06/30/21 16:38 Dose: 25 gm Documented by: STEFAN Gabapentin (Gabapentin 600 Mg Tablet) 300 mg PO TID [facility] Last Admin: 06/30/21 15:56 Dose: 300 mg Documented by: STEFAN Glucose (Glucose Gel 15 Gm Gel..Gram.) 15 gm PO Q15M PRN; Protocol PRN Reason: per Hypoglycemia Standing Ord. Heparin Sodium (Porcine) (Heparin Sodium,Porcine 5,000 Unit/Ml Vial) 5,000 unit SUBCUT Q12H [facility] Last Admin: 06/30/21 15:56 Dose: 5,000 unit Documented by: STEFAN Ceftriaxone Sodium 1 gm/ (Sodium Chloride) 50 mls @ 100 mls/hr IV Q24H [facility] Last Infusion: 06/30/21 04:40 Dose: 0 mls/hr Documented by: BELLE Melatonin (Melatonin 3 Mg Tablet) 6 mg PO BEDTIME PRN PRN Reason: Insomnia Methadone HCl (Methadone Hcl 20 Mg/2 Ml Oral.Conc) 20 mg PO DAILY [facility] Last Admin: 06/30/21 08:03 Dose: 20 mg Documented by: SHARON Multivitamins/Vitamin C (Multivitamin Tablet) 1 tab PO DAILY [facility] Last Admin: 06/30/21 08:03 Dose: 1 tab Documented by: SHARON Omeprazole (Omeprazole 20 Mg Capsule.Dr) 20 mg PO BID [facility] Last Admin: 06/30/21 08:03 Dose: 20 mg Documented by: SHARON Senna (Sennosides 8.6 Mg Tablet) 17.2 mg PO BEDTIME PRN PRN Reason: Constipation Sodium Chloride (0.9 % Sodium Chloride Flush 3 Ml Syringe) 3 ml IVFLUSH QSHIFT [facility] Last Admin: 06/30/21 15:56 Dose: 3 ml Documented by: STEFAN Thiamine HCl (Thiamine Hcl 100 Mg Tablet) 100 mg PO DAILY [facility] Last Admin: 06/30/21 08:03 Dose: 100 mg Documented by: SHARON Labs CBC & Chem 7: 06/30/21 08:32 06/30/21 08:32 Labs: Laboratory Results - last 24 hr 06/29/21 06/30/21 06/30/21 19:42 07:11 08:32 MCV 102.3 H MCH 33.3 H MCHC 32.6 RDW 13.8 Plt Count 228 MPV 10.5 Absolute Nucleated RBC 0.000 Nucleated RBC % (auto) 0.0 Anion Gap Estim Creat Clear Calc Estimated GFR POC Glucose 225 H 158 H Random Glucose Calcium 06/30/21 06/30/21 06/30/21 08:32 10:20 11:06 MCV MCH MCHC RDW Plt Count MPV Absolute Nucleated RBC Nucleated RBC % (auto) Anion Gap 12 Estim Creat Clear Calc 43.9 Estimated GFR > 60 POC Glucose 282 H 289 H Random Glucose 205 H Calcium 8.8 06/30/21 06/30/21 16:29 17:01 MCV MCH MCHC RDW Plt Count MPV Absolute Nucleated RBC Nucleated RBC % (auto) Anion Gap Estim Creat Clear Calc Estimated GFR POC Glucose 39 L* 173 H Random Glucose Calcium Microbiology Microbiology Results: Microbiology 06/28/21 Unknown Urine Culture - Preliminary Urine Catheterized - Flores Catheter Yeast 06/28/21 00:03 Blood Culture - Preliminary Blood - Venous No growth after 48 hours. 06/28/21 00:03 Blood Culture - Preliminary Blood - Venous No growth after 48 hours. Assessment and Plan (1) Hypoglycemia: Status: Acute Assessment and Plan: this is a 52-year-old female with past medical history of hypertension and diabetes who initially came into the hospital after her blood cultures from 06/26 grew 1/2 bottles positive with coagulase negative Staph. Patient was initially going to be discharged but she appeared to be more lethargic, weak, and her UA showed yeast. Patient was evaluated by Infectious Disease, recommended treatment with IV antibiotics. Bacteremia BCx from 06/26, 1/2 bottles growing coag negative staph - likely contaminant repeat BCx from 06/28 negative x 48 hours UTI UCx >100,000 mixed iain seen by ID, rec ceftriaxone and abx for a total of 10 days. this can be switched to Ceftin on discharge hypoglycemia hypoglycemia x 2 - will d/c SSI for now - continue to follow POCs - home meds on hold - continue diabetic diet yeast UTI - most likely contaminate - ID recommends no tx KAYLEIGH - resolved - most likely 2/2 dehydration Severe protein calorie malnutrition:? see formal nutrition note supplements added History of esophagitis/gastric ulcer:? continue PPI pancreatic insufficiency/chronic pancreatitis continue Creon History of dysphagia:? seen by speech, recommend mech alt diet remote h/o opiate abuse continue home dose of methadone Dispo: Seen by PT, recommend STR. patient agreeable. awaiting SNF bed DVT ppx:heparin attending: dr leone Quality Stroke Does the patient have a stroke diagnosis?: No VTE Prior VTE?: No VTE Risk Level:: Medical - moderate - high VTE Device Contraindication: N/A - Device Ordered VTE Drug Contraindication: Treatment Not Indicated
[2021-06-30 18:48] LABS: Glucose, Whole Blood 275 mg/dL (60-115)
[2021-06-30 19:51] VITALS: BP 110/80; PULSE 72; RESP 16; TEMP 36.6; O2SAT 96
[2021-06-30 20:59] LABS: Glucose, Whole Blood 226 mg/dL (60-115)
[2021-06-30 23:51] VITALS: BP 119/82; PULSE 72; RESP 16; TEMP 36.8; O2SAT 94
[2021-07-01] MEDS: 0.9 % Sodium Chloride Flush 3 ML SYRINGE IVFLUSH ×4 (00:32→20:34)
[2021-07-01] MEDS: Heparin Sodium,Porcine 5,000 UNIT/ML VIAL 5000 UNIT SUBCUT ×2 (03:14→15:19)
[2021-07-01] MEDS: cefTRIAXone sodium 1 GM in 0.9 % Sodium Chloride 50 ML IV (03:15)
[2021-07-01 03:29] VITALS: BP 121/79; PULSE 72; RESP 16; TEMP 36.7; O2SAT 96
[2021-07-01 03:47] LABS: Glucose, Whole Blood 240 mg/dL (60-115)
[2021-07-01 07:43] LABS: Glucose, Whole Blood 221 mg/dL (60-115)
[2021-07-01 07:47] VITALS: BP 132/87; PULSE 72; RESP 18; TEMP 36.6; O2SAT 98
[2021-07-01] MEDS: methADONE HCl 20 MG/2 ML ORAL.CONC PO (10:25)
[2021-07-01] MEDS: Gabapentin 600 MG TABLET 300 MG PO ×3 (10:25→20:35)
[2021-07-01] MEDS: Omeprazole 20 MG CAPSULE.DR PO ×2 (10:27→20:34)
[2021-07-01] MEDS: Thiamine HCL 100 MG TABLET PO (10:27)
[2021-07-01] MEDS: Multivitamin TABLET 1 TAB PO (10:28)
[2021-07-01 12:00] VITALS: BP 135/90; PULSE 72; RESP 18; TEMP 36.3; O2SAT 96
[2021-07-01] MEDS: Insulin Lispro 100 UNIT/ML 3 ML VIAL SUBCUT ×2 (12:00→17:14)
[2021-07-01 12:06] LABS: Glucose, Whole Blood 286 mg/dL (60-115)
--- NOTE | 2021-07-01 12:15 | MHC.CM.PN ---
Met with patient and her daughter, Marilynn with vehicle painter. Informed them that facilities in [place] have not accepted her, no available beds. She was accepted at [facility] in [place] pending insurance auth. on Saturday. They are both agreeable with STR at [facility] and trasport via ambulance.
--- NOTE | 2021-07-01 12:26 | P.PNIM_ITS ---
Subjective Subjective Date of Service: 07/01/21 Interval History: seen and examined this morning no new issues Review of Systems no fever no pain Physical Exam Vital Signs: Vital Signs: Last Vital Signs Temp 97.8 F 07/01/21 07:47 Pulse 72 07/01/21 07:47 Resp 18 07/01/21 07:47 BP 132/87 07/01/21 07:47 Pulse Ox 98 07/01/21 07:47 Body Mass Index 15.5 Const: Other: General: AO X 3, no acute distress Resp: CTA bilateral CVS: S1,S2,RRR GI: +BS, NT, no distention Skin: No rash Neuro: motor grossly intact Psych: appropriate affect Objective Data Active Medications Acetaminophen (Acetaminophen 325 Mg Tablet) 650 mg PO Q6H PRN PRN Reason: Pain, Mild (Pain Scale 1-3) Dextrose (Dextrose 50 % 25 Gm/50 Ml Vial) 25 gm IVPUSH Q15M PRN; Protocol PRN Reason: per Hypoglycemia Standing Ord. Last Admin: 06/30/21 16:38 Dose: 25 gm Documented by: STEFAN Gabapentin (Gabapentin 600 Mg Tablet) 300 mg PO TID [facility] Last Admin: 07/01/21 10:25 Dose: 300 mg Documented by: MAICO Glucose (Glucose Gel 15 Gm Gel..Gram.) 15 gm PO Q15M PRN; Protocol PRN Reason: per Hypoglycemia Standing Ord. Heparin Sodium (Porcine) (Heparin Sodium,Porcine 5,000 Unit/Ml Vial) 5,000 unit SUBCUT Q12H [facility] Last Admin: 07/01/21 03:14 Dose: 5,000 unit Documented by: NIURKA Ceftriaxone Sodium 1 gm/ (Sodium Chloride) 50 mls @ 100 mls/hr IV Q24H [facility] Last Infusion: 07/01/21 03:53 Dose: 0 mls/hr Documented by: NIURKA Insulin Human Lispro (Insulin Lispro 100 Unit/Ml 3 Ml Vial) 0 unit SUBCUT QIDACHS [facility]; Protocol Last Admin: 07/01/21 12:00 Dose: 6 unit Documented by: MAICO Melatonin (Melatonin 3 Mg Tablet) 6 mg PO BEDTIME PRN PRN Reason: Insomnia Methadone HCl (Methadone Hcl 20 Mg/2 Ml Oral.Conc) 20 mg PO DAILY [facility] Last Admin: 07/01/21 10:25 Dose: 20 mg Documented by: MAICO Multivitamins/Vitamin C (Multivitamin Tablet) 1 tab PO DAILY [facility] Last Admin: 07/01/21 10:28 Dose: 1 tab Documented by: MAICO Non-Formulary Medication ([id number]-Jhducms [Creon]) 3 cap PO TID [facility] Omeprazole (Omeprazole 20 Mg Capsule.Dr) 20 mg PO BID [facility] Last Admin: 07/01/21 10:27 Dose: 20 mg Documented by: MAICO Senna (Sennosides 8.6 Mg Tablet) 17.2 mg PO BEDTIME PRN PRN Reason: Constipation Sodium Chloride (0.9 % Sodium Chloride Flush 3 Ml Syringe) 3 ml IVFLUSH QSHIFT [facility] Last Admin: 07/01/21 10: Dose: 3 ml Documented by: MAICO Thiamine HCl (Thiamine Hcl 100 Mg Tablet) 100 mg PO DAILY [facility] Last Admin: 07/01/21 10:27 Dose: 100 mg Documented by: MAICO Labs CBC & Chem 7: 06/30/21 08:32 06/30/21 08:32 Labs: Laboratory Results - last 24 hr 06/30/21 06/30/21 06/30/21 16:29 17:01 18:41 POC Glucose 39 L* 173 H 275 H 06/30/21 07/01/21 07/01/21 20:55 03:44 07:15 POC Glucose 226 H 240 H 221 H 07/01/21 11:49 POC Glucose 286 H Microbiology Microbiology Results: Microbiology 06/28/21 Unknown Urine Culture - Final Urine Catheterized - Flores Catheter Nikki glabrata Assessment and Plan (1) Urinary tract infection: Status: Acute (2) Bacteremia: Status: Acute Assessment and Plan: 52-year-old female with past medical history of hypertension and diabetes who initially came into the hospital after her blood cultures from 06/26 grew 1/2 bottles positive with coagulase negative Staph. Patient was initially going to be discharged but she appeared to be more lethargic, weak, and her UA showed yeast. Patient was evaluated by Infectious Disease, recommended treatment with IV antibiotics. Bacteremia--BCx from 06/26, 1/2 bottles growing coag negative staph - likely contaminant repeat BCx from 06/28 negative x 48 hours UTI UCx >100,000 mixed iain seen by ID, rec ceftriaxone and abx for a total of 10 days. this can be swi tched to Ceftin on discharge hypoglycemia--no further episode Yeast UTI - most likely contaminate - ID recommends no tx KAYLEIGH - resolved - most likely 2/2 dehydration Severe protein calorie malnutrition:? see formal nutrition note supplements added History of esophagitis/gastric ulcer:? continue PPI pancreatic insufficiency/chronic pancreatitis continue Creon History of dysphagia:? seen by speech, recommend mech alt diet remote h/o opiate abuse continue home dose of methadone Dispo: Seen by PT, recommend STR. patient agreeable. awaiting SNF bed DVT ppx:heparin Quality Stroke Does the patient have a stroke diagnosis?: No VTE Prior VTE?: No VTE Risk Level:: Medical - moderate - high VTE Device Contraindication: N/A - Device Ordered VTE Drug Contraindication: Treatment Not Indicated
[2021-07-01 16:00] VITALS: BP 117/75; PULSE 74; RESP 17; TEMP 37.1; O2SAT 96
[2021-07-01 16:38] LABS: Glucose, Whole Blood 255 mg/dL (60-115)
[2021-07-01 19:39] VITALS: BP 95/68; PULSE 91; RESP 16; TEMP 36.4; O2SAT 100
[2021-07-01 20:15] LABS: Glucose, Whole Blood 126 mg/dL (60-115)
[2021-07-01] MEDS: Acetaminophen 325 MG TABLET 650 MG PO (20:35)
[2021-07-01 23:33] VITALS: BP 97/72; PULSE 76; RESP 18; TEMP 36.3; O2SAT 96
[2021-07-02] VITALS (8 sets, daily range): BP systolic 95–136; BP diastolic 69–92; PULSE 66–98; RESP 16–20; TEMP 36.3–37.3; O2SAT 95–100
[2021-07-02] MEDS: Heparin Sodium,Porcine 5,000 UNIT/ML VIAL 5000 UNIT SUBCUT ×2 (02:58→16:06)
[2021-07-02] MEDS: cefTRIAXone sodium 1 GM in 0.9 % Sodium Chloride 50 ML IV (02:58)
[2021-07-02 07:55] LABS: Glucose, Whole Blood 183 mg/dL (60-115)
[2021-07-02] MEDS: Insulin Lispro 100 UNIT/ML 3 ML VIAL SUBCUT ×3 (08:54→16:45)
[2021-07-02] MEDS: Gabapentin 600 MG TABLET 300 MG PO ×2 (08:55→16:06)
[2021-07-02] MEDS: methADONE HCl 20 MG/2 ML ORAL.CONC PO (08:55)
[2021-07-02] MEDS: Omeprazole 20 MG CAPSULE.DR PO (08:56)
[2021-07-02] MEDS: Multivitamin TABLET 1 TAB PO (08:56)
[2021-07-02] MEDS: Thiamine HCL 100 MG TABLET PO (08:56)
[2021-07-02] MEDS: 0.9 % Sodium Chloride Flush 3 ML SYRINGE IVFLUSH ×2 (08:58→16:06)
--- NOTE | 2021-07-02 11:02 | HO.PM.IMPN ---
Subjective Subjective Date of Service: 07/02/21 Interval History: seen and examined this morning no new issues Review of Systems no fever no pain Physical Exam Vital Signs: Vital Signs: Last Vital Signs Temp 98.1 F 07/02/21 11:00 Pulse 73 07/02/21 11:00 Resp 18 07/02/21 11:00 BP 136/76 07/02/21 11:00 Pulse Ox 98 07/02/21 11:00 Body Mass Index 15.5 Const: Other: General: AO X 3, no acute distress, cachectic Resp: CTA bilateral CVS: S1,S2,RRR GI: +BS, NT, no distention Skin: No rash Neuro: motor grossly intact Psych: appropriate affect Objective Data Active Medications Acetaminophen (Acetaminophen 325 Mg Tablet) 650 mg PO Q6H PRN PRN Reason: Pain, Mild (Pain Scale 1-3) Last Admin: 07/01/21 20:35 Dose: 650 mg Documented by: SANDOR Dextrose (Dextrose 50 % 25 Gm/50 Ml Vial) 25 gm IVPUSH Q15M PRN; Protocol PRN Reason: per Hypoglycemia Standing Ord. Last Admin: 06/30/21 16:38 Dose: 25 gm Documented by: STEFAN Gabapentin (Gabapentin 600 Mg Tablet) 300 mg PO TID [facility] Last Admin: 07/02/21 08:55 Dose: 300 mg Documented by: MAICO Glucose (Glucose Gel 15 Gm Gel..Gram.) 15 gm PO Q15M PRN; Protocol PRN Reason: per Hypoglycemia Standing Ord. Heparin Sodium (Porcine) (Heparin Sodium,Porcine 5,000 Unit/Ml Vial) 5,000 unit SUBCUT Q12H [facility] Last Admin: 07/02/21 02:58 Dose: 5,000 unit Documented by: SANDOR Ceftriaxone Sodium 1 gm/ (Sodium Chloride) 50 mls @ 100 mls/hr IV Q24H [facility] Last Infusion: 07/02/21 03:34 Dose: 0 mls/hr Documented by: SANDOR Insulin Human Lispro (Insulin Lispro 100 Unit/Ml 3 Ml Vial) 0 unit SUBCUT QIDACHS [facility]; Protocol Last Admin: 07/02/21 08:54 Dose: 2 unit Documented by: MAICO Melatonin (Melatonin 3 Mg Tablet) 6 mg PO BEDTIME PRN PRN Reason: Insomnia Methadone HCl (Methadone Hcl 20 Mg/2 Ml Oral.Conc) 20 mg PO DAILY [facility] Last Admin: 07/02/21 08:55 Dose: 20 mg Documented by: MAICO Multivitamins/Vitamin C (Multivitamin Tablet) 1 tab PO DAILY [facility] Last Admin: 07/02/21 08:56 Dose: 1 tab Documented by: MAICO Pt Own Med (Lipase- Protease-Amylase [ Creon] 6,000-19,000 -30,000 Unit Capsul) 3 each PO TIDWM [facility] Last Admin: 07/02/21 08:57 Dose: 3 each Documented by: MAICO Omeprazole (Omeprazole 20 Mg Capsule.Dr) 20 mg PO BID [facility] Last Admin: 07/02/21 08:56 Dose: 20 mg Documented by: MAICO Senna (Sennosides 8.6 Mg Tablet) 17.2 mg PO BEDTIME PRN PRN Reason: Constipation Sodium Chloride (0.9 % Sodium Chloride Flush 3 Ml Syringe) 3 ml IVFLUSH QSHIFT [facility] Last Admin: 07/02/21 08:58 Dose: 3 ml Documented by: MAICO Thiamine HCl (Thiamine Hcl 100 Mg Tablet) 100 mg PO DAILY [facility] Last Admin: 07/02/21 08:56 Dose: 100 mg Documented by: MAICO Labs CBC & Chem 7: 06/30/21 08:32 06/30/21 08:32 Labs: Laboratory Results - last 24 hr 07/01/21 07/01/21 07/01/21 11:49 16:19 20:05 POC Glucose 286 H 255 H 126 H 07/02/21 07:11 POC Glucose 183 H Microbiology Microbiology Results: Microbiology 06/28/21 Unknown Urine Culture - Final Urine Catheterized - Flores Catheter Nikki glabrata Assessment and Plan (1) Methadone dependence: Status: Acute (2) Anemia: Status: Acute Assessment and Plan: 52-year-old female with past medical history of hypertension and diabetes who initially came into the hospital after her blood cultures from 06/26 grew 1/2 bottles positive with coagulase negative Staph. Patient was initially going to be discharged but she appeared to be more lethargic, weak, and her UA showed yeast. Patient was evaluated by Infectious Disease, recommended treatment with IV antibiotics. Bacteremia--BCx from 06/26, 1/2 bottles growing coag negative staph - likely contaminant repeat BCx from 06/28 negative x 48 hours UTI UCx >100,000 mixed iain seen by ID, rec ceftriaxone and abx for a total of 10 days. this can be switched to Ceftin on discharge hypoglycemia--no further episode Yeast UTI - most likely contaminate - ID recommends no tx KAYLEIGH - resolved - most likely 2/2 dehydration Severe protein calorie malnutrition:? see formal nutrition note supplements added Diabetes with hypoglycemia--no further hypoglycemia, History of esophagitis/gastric ulcer:? continue PPI pancreatic insufficiency/chronic pancreatitis continue Creon History of dysphagia:? seen by speech, recommend mech alt diet remote h/o opiate abuse continue home dose of methadone Dispo: Seen by PT, recommend STR. patient agreeable. awaiting SNF bed DVT ppx:heparin Quality Stroke Does the patient have a stroke diagnosis?: No VTE Prior VTE?: No VTE Risk Level:: Medical - moderate - high VTE Device Contraindication: N/A - Device Ordered VTE Drug Contraindication: Treatment Not Indicated
[2021-07-02 11:36] LABS: Glucose, Whole Blood 240 mg/dL (60-115)
[2021-07-02 16:18] LABS: Glucose, Whole Blood 252 mg/dL (60-115)
[2021-07-02 19:52] LABS: Glucose, Whole Blood 132 mg/dL (60-115)
[2021-07-02 20:17] LABS: Glucose, Whole Blood 113 mg/dL (60-115)
--- NOTE | 2021-07-02 20:32 | PC.NURSE ---
Pt's daughter reported ,pt is not responding appropriate .RN assessed patient : soft single words repeated garbled , pt opens her eyes to voice , slowly responding to commands, , left facial droop, left arm flacid, not able to move left lower extramity. [employer] called at 20:08 . BP 113/[address] of the head done
--- NOTE | 2021-07-02 20:55 | ECG_ITS ---
Test Reason : chest pain Blood Pressure : / mmHG Vent. Rate : 099 BPM Atrial Rate : 099 BPM P-R Int : 110 ms QRS Dur : 066 ms QT Int : 374 ms P-R-T Axes : 080 044 094 degrees QTc Int : 479 ms Poor data quality Sinus rhythm RSR' or QR pattern in V1 suggests right ventricular conduction delay Abnormal ECG RSR' or QR pattern in V1 suggests right ventricular conduction delay is new Referred By: Topher Silva Electronically Signed By:SUMAYA WILLOUGHBY MD
[2021-07-02] MEDS: levETIRAcetam in NaCl (iso-os) 1,000 MG/100 ML PIGGYBACK 400 MG IV (21:58)
[2021-07-02 22:10] LABS: Glucose, Whole Blood 123 mg/dL (60-115)
--- NOTE | 2021-07-02 22:10 | PM.DS ---
DS: Providers Provider Date of Service: 07/02/21 Date of admission: 06/28/21 04:30 Primary care physician: Bri Petty MD Consults: 06/28/21 04:30 Consult to Infectious Diseases Routine Consulting Provider: Danna Ramos Reason for consultation: UTI/bacteremia DS: Transfer Hospital Acceptance Reason for Transfer: intraparenchymal hemorrhage Name of Facility: [facility] Accepting Provider: Dr Amaya Intensitivist/Neurocritical care DS: Diagnosis Discharge Diagnosis (1) Intraparenchymal hemorrhage of brain: Status: Acute (2) Urinary tract infection: Status: Acute (3) Dysphagia: (4) Methadone dependence: Status: Acute (5) Anemia: Status: Acute (6) Malnutrition: (7) Chronic pancreatitis: Status: Acute (8) Diabetes: DS: Summary Hospital Course Hospital Course: Patient was seen in the ED 2 days before admission and was called back because 1/2 blood culture came positive with coag negative staph and further treatment with UTI, and during hospitalization was noted to have episodes of hypoglycemia. The blood culture was a contamination as repeat blood cultures have been negative. UTI has been treated with Ceftriaxone and ID recommends transition to oral Ceftin for 10 days. Of note patient had episodes of hypoglycemia likely from insulin and poor nutritional status--This seems to have resolved and will History of presenting illness: Chief Complaint: Positive cultures 60-year-old Hebrew-speaking female with a past medical history of hypertension, diabetes, pill induced esophagitis, peptic ulcer disease, dysphagia, cachexia, severe protein calorie malnutrition, anemia, methadone dependent presented to the hospital with a chief complaint of generalized weakness.? Patient is a poor historian.? Most of the history obtained from the patient started bedside.? Reportedly patient of presented to the hospital 2 days ago with chief complaint of generalized weakness and was noted to have UTI and was sent home on oral antibiotics; and SI patient cart a call mentioned that her blood cultures are positive and also to come back to the hospital.? After she came back from the work patient's daughter noted that the patient has drowsy and appears very tired and exhausted all like however she was in the morning.? Hence wanted to the hospital for further evaluation.? Mentioned that yesterday morning patient was alert awake and walking around the house, ate her lunch. Review of all other systems is limited as the patient is a poor historian.? Patient's daughter denies patient having any fevers.? Denies patient complaining of any chest pain palpitations.? ER course: Per ER team patient noted a abnormal UA consistent with UTI.? Given ceftriaxone.? And blood cultures final results are pending-preliminary showing Gram-positive cocci.? Admitted to the hospital for further management. Hospital course: 52-year-old female with past medical history of hypertension and diabetes who initially came into the hospital after her blood cultures from 06/26 grew 1/2 bottles positive with coagulase negative Staph.? Patient was initially going to be discharged but she appeared to be more lethargic, weak,? and her UA showed yeast.? Patient was evaluated by Infectious Disease, recommended treatment with IV antibiotics. Hemorrhagic stroke: On at around 8:00 p.m. [employer] was called in same patient was not and responding; when I went in to examine the patient, patient was responding to verbal stimuli, vitals are stable with blood pressure 116/62, fingerstick glucose 120; saturating 98% on room air; noted a mild left facial droop, unable to lift left upper and left lower extremities; in for any question asked patient was saying she is feeling okay. Patient's daughter at bedside who last saw her around 4:00 p.m. and mentioned that patient was doing well. Spoke to the RN for RN patient last well known was around 5:00 p.m.; per day hospitalist patient was nonfocal during the daytime. stat CT head with stroke protocol showed 3 cm intraparenchymal hemorrhage on the right basal ganglia causing distortion of the adjacent right lateral ventricle and approximately 1-2 mm leftward midline shift. Spoke to Neurosurgery Dr. Soares at [facility]-> who mentioned no neurosurgical intervention and recommended to speak to stroke neurology spoke to from Neurology who recommended admission to the [facility] ICU after discussing about the patient details. Spoke to at [facility] Neuro Critical Care- accepted the patient. Patient was initially drowsy but later on her mental status gradually improving and following commands and understanding the conversations with the daughter. Holding iv MANNITOL per discussion with Dr. Amaya. neuro checks patient started on Keppra given patient noted to have right upper extremity twitching concerning for seizures. Around 9:00 a.m. patient complained of chest pain which quickly resolved. EKG was nonischemic. Other Conditions pt being treated since admission: Bacteremia--BCx from 06/26, 1/2 bottles growing coag negative staph - likely contaminant repeat BCx from 06/28 negative x 48 hours UTI UCx >100,000 mixed iain seen by ID,? rec ceftriaxone and abx for a total of 10 days. this can be switched to Ceftin on discharge hypoglycemia--no further episode Yeast UTI - most likely contaminate - ID recommends no tx KAYLEIGH - resolved - most likely 2/2 dehydration Severe protein calorie malnutrition:? see formal nutrition note supplements added Diabetes with hypoglycemia--no further hypoglycemia, History of esophagitis/gastric ulcer:? continue PPI pancreatic insufficiency/chronic pancreatitis continue Creon History of dysphagia:? seen by speech, recommend [facility] alt diet remote h/o opiate abuse continue home dose of methadone Dispo:[facility] [place] Time Spent with Patient Time attestation: Total time spent providing and/or coordinating discharge services: Discharge coordination time: Greater than 30 minutes Quality: Stroke Does the patient have a stroke diagnosis?: Yes Reason for No Anti-thrombotic at DC: Contraindicated Reason for No Anticoagulant at DC: Contraindicated Reason Not Initiating IV-Tpa: Contraindicated Reason for No Anti-thrombotic by Day Two: Contraindicated Reason for No Statin at DC: N/A - Med Ordered Physical Exam Vital Signs: Vital Signs: Last Vital Signs Temp 98.2 F 07/02/21 20:50 Pulse 89 07/02/21 20:50 Resp 20 07/02/21 20:50 BP 136/92 H 07/02/21 20:50 Pulse Ox 97 07/02/21 20:50 Body Mass Index 15.5 Gen: Appears be in no acute distress HEENT: NCAT, Moist mucosa. Pulmonary: Vesicular breath sounds, fair air entry CVS: Normal S1-S2 Abdomen: BS+, Soft, Nontender Extremities: Warm well perfused Neuro: was initially drowsy, mental status gradually improving, response to verbal commands, answering to simple questions asked with daughter. right upper extremity has intermittent itching. left upper and lower extremity 0/5 strength. right upper and lower extremity 4/5 strength. mild left facial droop. DS: Data Data Completed and Pending Completed studies during hospitalization [Text1]: Procedures Excision of Duodenum, Via Natural or Artificial Opening Endoscopic, Diagnostic (01/09/21) Excision of Esophagogastric Junction, Via Natural or Artificial Opening Endoscopic, Diagnostic (01/09/21) Excision of Stomach, Pylorus, Via Natural or Artificial Opening Endoscopic, Diagnostic (01/09/21) Labs on day of discharge: Laboratory Results - last 24 hr 07/02/21 07/02/21 07/02/21 07:11 11:02 16:08 POC Glucose 183 H 240 H 252 H 07/02/21 07/02/21 19:43 20:08 POC Glucose 132 H 113 Preliminary micro results at discharge 06/28/21 00:03 Blood Culture - Preliminary Blood - Venous No growth after 48 hours. 06/28/21 00:03 Blood Culture - Preliminary Blood - Venous No growth after 48 hours. Discharge Plan Discharge Anticipated Discharge Date/Time: 07/02/21 22:17 Patient Disposition: Home Health Service Discharge Diagnosis: Intracranial hemorrhage Referrals: Bri Vasques MD [Primary Care Provider] - 1 Week Discharge Medications: New levetiracetam in NaCl (iso-os) 1,000 mg/100 mL Piggyback 1,000 mg IV Q12H Qty: 1000 RF: 0 insulin lispro [Humalog U-100 Insulin] 100 unit/mL Solution See Protocol sliding scale dose subcut TIDAC Qty: 10 RF: 0 ceftriaxone 1 gram Recon Soln 1 g IV Q24H Qty: 5 RF: 0 Continued (DME) adult diapers briefs x-small See Rx Instructions .Route .MEDSUPPLY Qty: 120 RF: 11 Creon 6,000-19,000 -30,000 unit capsule,delayed release(DR/EC) 3 cap PO TID 30 Days Qty: 270 RF: 3 ascorbic acid (vitamin C) [Vitamin C] 500 mg tablet 500 mg PO DAILY Qty: 30 RF: 2 pyridoxine (vitamin B6) 100 mg tablet 50 mg PO DAILY Qty: 30 RF: 1 omeprazole 20 mg capsule,delayed release(DR/EC) 20 mg PO BID 30 Days Qty: 60 RF: 3 acetaminophen 325 mg tablet 650 mg PO Q6H PRN (Reason: pain) Qty: 120 RF: 0 ferrous sulfate 325 mg (65 mg iron) tablet 325 mg PO Q OTHER DAY 30 Days Qty: 15 RF: 2 gabapentin 600 mg Tablet 600 mg PO TID RF: 0 thiamine HCl (vitamin B1) 100 mg Tablet 100 mg PO DAILY RF: 0 cholecalciferol (vitamin D3) 25 mcg (1,000 unit) Tablet 25 mcg PO DAILY RF: 0 multivitamin with minerals Tablet 1 tab PO DAILY RF: 0 (DME) commode Kit See Rx Instructions .ROUTE .MEDSUPPLY Qty: 1 RF: 0 methadone 10 mg Tablet 18 mg PO DAILY RF: 0 Farxiga 10 mg tablet 1 tab PO DAILY RF: 0 Discontinued Humalog KwikPen Insulin 200 unit/mL (3 mL) Insulin Pen 4 unit SUBCUT TIDAC PRN (Reason: Hyperglycemia) RF: 0 insulin degludec 100 unit/mL Solution 5 unit SUBCUT BEDTIME RF: 0 cephalexin 500 mg capsule 500 mg PO QID 7 Days Qty: 28 RF: 0 Discharge Orders: Discharge Order (Routine); Ordered 07/02/21 Ordered By: Martínez Rodríguez Diet: advance to usual diet and diabetic diet Activity on Discharge: As tolerated Stand Alone Forms: Patient Portal Discharge page Care Plan Goals: assessment and management of intracranial hemorrhoage Health Concerns: Intracranial hemorrhage Plan of Treatment: Transfer to [facility] for management of intracranial hemorrhage Assessment: As above Discharge Date/Time: 07/03/21 00:05
--- NOTE | 2021-07-03 00:03 | PC.NURSE ---
Ct scan : right sided brain bleed, Pt transferred to [facility] surgical ICU room 12 report called to KYLAH Kitchen, pt transferred via ambulance,pt's daughter aware, DR Silva spoke with the daughter regarding pt;s condition.
== END 2021-07-03 00:05 | disposition short-term general hospital (02) | DRG 463 ==
LOC: HO.ED 06-28 01:51 → HO.EDOVER 06-28 04:35 → HO.IMC 06-28 18:16
PROVIDERS: Internal Medicine; Physician Assistant Medical; Admitting Provider Hospitalist; Emergency Provider Emergency Medicine; PCP Internal Medicine; Visit Provider Internal Medicine
DX: N39.0 Urinary tract infection, site not specified (principal); I63.40 Cerebral infarction due to embolism of unspecified cerebral artery; I61.9 Nontraumatic intracerebral hemorrhage, unspecified; E43 Unspecified severe protein-calorie malnutrition; E11.649 Type 2 diabetes mellitus with hypoglycemia without coma; K25.9 Gastric ulcer, unspecified as acute or chronic, without hemorrhage or perforation; E11.65 Type 2 diabetes mellitus with hyperglycemia; F11.20 Opioid dependence, uncomplicated; N17.9 Acute kidney failure, unspecified; R13.10 Dysphagia, unspecified; F17.210 Nicotine dependence, cigarettes, uncomplicated; Z20.822 Contact with and (suspected) exposure to COVID-19; Z71.6 Tobacco abuse counseling; Z68.1 Body mass index [BMI] 19.9 or less, adult; Z79.4 Long term (current) use of insulin; Z79.899 Other long term (current) drug therapy
CPT/HCPCS: 36415; 70450; 80048; 80053; 81001; 82803; 82947; 83605; 85025; 85027; 87040; 87086; 87088; 87635; 92610; 93005; 94799; 96361; 96365; 96375; 96376; 97162; 99285; J0696; J1953

== ENCOUNTER → 2024-04-09 15:00 | Outpatient (RCR) | payer OTHER, SELFPAY ==
[2021-02-17 13:17] VITALS: BP 109/68; PULSE 88; RESP 14; TEMP 36.2; O2SAT 94; BMI 12.9
[2021-02-17 14:07] LABS: MANUAL DIFF FLAG NO
[2021-02-17 14:11] LABS: Basophils Absolute Auto 0.1 X10*3/uL (0.0-0.2); Basophils Percent Auto 0.7 % (0-2); Eosinophils Absolute Auto 0.1 X10*3/uL (0.0-0.4); Eosinophils Percent Auto 1.1 % (0-4); Hematocrit 35.5 % (37-47); Hemoglobin 11.4 g/dl (12.0-16.0); Imm Gran Abs Auto 0.03 X10*3/uL (0.00-0.03); Imm Gran Pct Auto 0.4 % (0.0-0.4); Lymphocytes Absolute Auto 1.8 X10*3/uL (1.2-4.9); Lymphocytes Percent Auto 22.1 % (20-40); Mean Corpuscular HGB Conc 32.1 g/dl (31.0-35.0); Mean Corpuscular Hemoglobin 30.6 pg (27.0-33.0); Mean Corpuscular Volume 95.2 fL (80-98); Mean Platelet Volume 10.3 fL (9.4-12.3); Monocytes Absolute Auto 0.5 X10*3/uL (0.1-1.2); Monocytes Percent Auto 5.5 % (2-11); Neutrophils Absolute Auto 5.8 X10*3/uL (2.0-8.3); Neutrophils Percent Auto 70.2 % (45-73); Platelet Count 252 X10*3/uL (160-400); Red Blood Count 3.73 X10*6/uL (4.20-5.50); Red Cell Distribution Width 14.6 % (11.0-16.0); White Blood Count 8.2 X10*3/uL (4.8-10.8)
--- NOTE | 2021-02-17 14:26 | P.CNHO_ITS ---
Subjective - Subjective Chief complaint: Anemia Patient: new to practice Consult date: 02/17/21 Primary Care Provider: Bri Petty MD Medical Summary: diagnosis: Iron deficiency anemia protein calorie malnutrition, underweight HPI - Consult Narrative Reason for consult: iron deficiency anemia Narrative: Neelam Rivera is a 60 year old female referred for management of recently diagnosed anemia. She gives a history of coffee-ground emesis, recent EGD showed gastric ulcers. Patient has been started on oral iron supplementation and tolerating it well. Patient was accompanied by her daughter today who s tates that her mother is eating all the time and has a good appetite. Apparently, she was 40 lb when she 1st came to live with her. She used to live in [place] previously. Both of them state that mother has a good appetite and is eating well. She denies emesis, constipation or diarrhea. She denies abdominal pain or any other symptoms. She denies history of blood transfusion or previous history of anemia. Review of Systems - Constitutional Reports as per HPI, Reports no additional constitutional complaints - Cardiovascular Reports no additional cardiovascular complaints - Respiratory Reports no additional respiratory complaints - Gastrointestinal Reports no additional gastrointestinal complaints Oncology Screenings - ECOG Performance Status ECOG Performance Status: 3 COUNTS INCLUDE 234 BEDS AT THE [facility] Medical History: Medical History (Last Updated 02/02/21 @ 08:30 by Bri Petyt MD) Anemia Diabetes Hypertension Methadone dependence Mild emphysema Thiamine deficiency Urge urinary incontinence Family History: Family History (Last Updated 02/02/21 @ 08:11 by Bri Petty MD) Father Throat cancer Mother No problems noted. Surgical History: Surgical History (Last Reviewed 02/02/21 @ 08:10 by Bri Petty MD) No pertinent past surgical history Social History: Social History (Last Updated 02/17/21 @ 13:23 by Claudine Orosco) Living Situation History: Household Members: Children Household Members Other:: Daughter Housing: Apartment [facility] Do you presently have visiting nurse or other home services: No Alcohol History: Alcohol intake: former Alcohol History Quit Date: Year quit: 2018 Alcohol History Details: Alcohol intake frequency: does not drink Tobacco History: Patient Tobacco Use Status: Current everyday Tobacco Tobacco use type: Cigarette Cigarettes Per Day: 5 e-Cigarette/Vaping Use: Never Used Second Hand Smoke Exposure: Yes Substance Use History: Use of substances other than those prescribed or required for medical reasons : Yes Substance Use Type: Marijuana Substance Use Type: Heroin Occupation Assessmet: service: No Current occupational status: disabled Home Medications and Allergies Home Medications Medication Instructions Recorded Confirmed Type Humalog KwikPen Insulin 4 unit SUBCUT TID 01/09/21 02/17/21 History cholecalciferol (vitamin D3) 25 mcg PO DAILY 01/09/21 02/17/21 History gabapentin 600 mg PO TID 01/09/21 02/17/21 History insulin degludec 5 unit SUBCUT BEDTIME 01/09/21 02/17/21 History lisinopril 5 mg PO DAILY 01/09/21 02/17/21 History methadone 17 mg PO DAILY 01/09/21 02/17/21 History multivitamin with minerals 1 tab PO DAILY 01/09/21 02/17/21 History pyridoxine (vitamin B6) 50 mg PO DAILY 01/09/21 02/17/21 History thiamine HCl (vitamin B1) 100 mg PO DAILY 01/09/21 02/17/21 History Allergies Allergy/AdvReac Type Severity Reaction Status Date / Time No Known Allergies Allergy Verified 02/02/21 08:03 Physical Exam Vital signs: Vital Signs Temp 97.1 F 02/17/21 13:17 Pulse 88 02/17/21 13:17 Resp 14 02/17/21 13:17 BP 109/68 02/17/21 13:17 Pulse Ox 94 02/17/21 13:17 Intake & Output 02/16/21 02/17/21 02/17/21 18:59 06:59 18:59 Other: Weight 32 kg Weight in Grams [id number] Weight 32 kg - Constitutional Present: cachectic, chronically ill appearing - Routine HEENT Exam Head: Present: atraumatic, normal inspection - Routine Respiratory Exam Present: CTAB. Absent: accessory muscle use - Routine Cardiovascular Exam Cardiovascular: Present: S1, S2 Hem/Onc Consult Result - Labs CBC & Chem 7: 02/17/21 14:05 Labs: Short CBC 02/17/21 Range/Units 14:05 WBC 8.2 (4.8-10.8) X10*3/uL Hgb 11.4 L (12.0-16.0) g/dl Hct 35.5 L (37-47) % Plt Count 252 (160-400) X10*3/uL Assessment and Plan (1) Anemia Status: Acute Qualifiers: Anemia type: iron deficiency Iron deficiency anemia type: chronic blood loss Qualified Code(s): D50.0 - Iron deficiency anemia secondary to blood loss (chronic) 1. This is a 60-year-old woman with severe malnutrition, cachexia presenting with anemia secondary to hematemesis. This is secondary to upper GI bleed, gastric ulcerations which were all benign. She has responded well to oral iron supplementation. Her anemia has improved. She has no other hematinic deficiencies, normal kidney and liver functions. She had imaging of her chest / abdomen and pelvis. There is no evidence of malignancy. Patient denies any history of eating disorder such as anorexia or bulimia. She can continue with oral iron supplementation for now. I thank you very much for this consultation.
[2021-02-17 14:41] LABS: Iron 65 mcg/dL (30-160); Percent Iron Saturation 24 % (15-50); Total Iron Binding Capacity 276 mcg/dL (228-428); Unsaturated Iron Binding 211 ug/dL
[2021-02-17 15:01] LABS: Ferritin 46 ng/mL (10-250)
--- NOTE | 2021-02-17 15:58 | MHC.HEMONCMA ---
Patient came in for a consult today for iron deficiency anemia, states that she is not doing well. Clinical summary was reviewed and updated. Patient had labs and will return in 3 months for a follow up.
== END | disposition home or self-care (01) ==
LOC: HO.ONC 02-17 13:06
PROVIDERS: PCP Internal Medicine; Referring Provider Internal Medicine; Visit Provider Internal Medicine
DX: D50.0 Iron deficiency anemia secondary to blood loss (chronic) (principal); K92.0 Hematemesis; E43 Unspecified severe protein-calorie malnutrition; Z79.899 Other long term (current) drug therapy
CPT/HCPCS: 36415; 82728; 83540; 85025; 99202